=== PATIENT | male | born 1940 | race Caucasian/White ===

== ENCOUNTER → 2016-02-14 | Outpatient (CLI) | payer OTHER ==
[~2016-02-14] MED LIST: ASPI81TA21 PO; ATOR-26 PO; FISHOIL PO; METO25TA56 PO
[2016-02-14 10:14] LABS: HEMATOCRIT 38.3 % (42-52); MEAN CELL VOLUME 91.2 fL (80-100); MEAN CORPUSCULAR HEMOGLOBIN 31.4 pg (25-34); MEAN CORPUSCULAR HGB CONC 34.5 g/dl (32-36); MEAN PLATELET VOLUME 10.3 fL (7.4-10.4); PLATELET COUNT 160 K/uL (130-400); WHITE BLOOD COUNT 6.98 K/uL (4.8-10.8)
[2016-02-14 10:15] LABS: URINE APPEARANCE CLEAR (CLEAR); URINE BILIRUBIN NEG (NEG); URINE COLOR YELLOW; URINE EPITHELIAL CELL AUTO 0-5 /lpf (0-5); URINE NITRITE NEG (NEG); UROBILINOGEN NEG (NEG)
[2016-02-14 10:17] LABS: MANUAL MICROSCOPIC REQUIRED? NO; REVIEW REQ? NO
[2016-02-14 10:43] LABS: URINE PROTIEN/CREAT RATIO 1.7 (0-0.2); URINE TOTAL PROTEIN 136.2 mg/dl (0-11.9)
[2016-02-14 10:56] LABS: BLOOD UREA NITROGEN 45 mg/dl (7-18); BUN/CREATININE RATIO 19.5 (10-20); CARBON DIOXIDE 24 mmol/L (21-32); CHLORIDE 110 mmol/L (98-107); GLUCOSE 99 mg/dl (70-99); SODIUM 142 mmol/L (136-145)
[2016-02-14 11:00] LABS: PHOSPHORUS 2.8 mg/dl (2.5-4.9)
== END | disposition home or self-care (01) ==
LOC: C.LAB 09:26
PROVIDERS: ATTEND Internal Medicine Nephrology
DX: N18.3 Chronic kidney disease, stage 3 (moderate) (principal); I10 Essential (primary) hypertension; R80.9 Proteinuria, unspecified; E55.9 Vitamin D deficiency, unspecified; N40.0 Benign prostatic hyperplasia without lower urinary tract symptoms

== ENCOUNTER → 2016-03-22 | Outpatient (CLI) | payer OTHER ==
[2016-03-22 11:34] LABS: MANUAL MICROSCOPIC REQUIRED? NO; REVIEW REQ? NO; URINE APPEARANCE CLEAR (CLEAR); URINE BILIRUBIN NEG (NEG); URINE COLOR YELLOW; URINE NITRITE NEG (NEG); URINE PH 5.5 (4.5-7.5); UROBILINOGEN NEG (NEG)
[2016-03-22 11:45] LABS: URINE PROTIEN/CREAT RATIO 1.3 (0-0.2); URINE TOTAL PROTEIN 131.4 mg/dl (0-11.9)
[2016-03-22 11:48] LABS: BLOOD UREA NITROGEN 35 mg/dl (7-18); BUN/CREATININE RATIO 14.6 (10-20); CARBON DIOXIDE 25 mmol/L (21-32); CHLORIDE 109 mmol/L (98-107); GLUCOSE 111 mg/dl (70-99); PHOSPHORUS 3.3 mg/dl (2.5-4.9); POTASSIUM 4.8 mmol/L (3.5-5.1); SODIUM 143 mmol/L (136-145)
== END | disposition home or self-care (01) ==
LOC: C.LAB 10:10
PROVIDERS: ATTEND Internal Medicine Nephrology
DX: R31.29 Other microscopic hematuria (principal); I12.9 Hypertensive chronic kidney disease with stage 1 through stage 4 chronic kidney disease, or unspecified chronic kidney disease; N18.3 Chronic kidney disease, stage 3 (moderate); R80.9 Proteinuria, unspecified; E55.9 Vitamin D deficiency, unspecified

== ENCOUNTER → 2016-04-19 | Outpatient (CLI) | payer OTHER ==
--- NOTE | 2016-04-19 13:35 | DIAGNOSTIC IMAGING REPORT ---
LUMBAR SPINE MIN 4 VIEWS CLINICAL HISTORY: LEFT HIP PAIN COMPARISON STUDY: No previous studies for comparison. FINDINGS: No acute fractures or subluxations are visualized. There are no destructive lesions. There is facet joint arthropathy L4-5 and L5-S1 levels. IMPRESSION: 1. No fractures subluxations or destructive lesions are visualized 2. Facet joint arthropathy Electronically signed by: Nato Dupree M.D. 04/19/2016 1:34 PM Dictated Date/Time: 04/19/2016 1:33 PM
--- NOTE | 2016-04-19 13:36 | DIAGNOSTIC IMAGING REPORT ---
LEFT KNEE 4 VIEWS INCLUDING BILATERAL STANDING AP VIEWS CLINICAL HISTORY: LEFT KNEE PAIN COMPARISON: None. DISCUSSION: No fractures are visualized. There are no erosive or destructive changes. There are minor osteoarthritic changes. There are small dorsal patellar spurs. IMPRESSION: Mild degenerative change. No fractures are visualized. Electronically signed by: Nato Dupree M.D. 04/19/2016 1:35 PM Dictated Date/Time: 04/19/2016 1:34 PM
== END | disposition home or self-care (01) ==
LOC: C.RDSM 13:15
PROVIDERS: ATTEND Family Medicine
DX: M25.562 Pain in left knee (principal); M25.552 Pain in left hip; M12.9 Arthropathy, unspecified

== ENCOUNTER → 2016-05-02 | Outpatient (CLI) | payer OTHER ==
--- NOTE | 2016-05-02 18:22 | DIAGNOSTIC IMAGING REPORT ---
MRI OF THE RIGHT FOREFOOT WITHOUT IV CONTRAST CLINICAL HISTORY: Benign neoplasm of the skin. COMPARISON STUDY: No priors. TECHNIQUE: MRI of the right forefoot is performed utilizing various T1 and T2-weighted sequences in the axial, sagittal, and coronal planes. IV contrast was not administered for this examination. FINDINGS: There is no MRI evidence of fracture or osteonecrosis in the right forefoot. Minimal degenerative change is seen within the fifth metatarsal head. Normal marrow signal intensity is otherwise preserved of the visualized bony structures. There is nonspecific soft tissue thickening seen overlying the medial aspect of the first metatarsophalangeal joint. There is trace and loculated appearing subcutaneous fluid in this region. The largest locule of fluid measures up to 9 mm. Fluid does not appear to extend to the joint space. This region is non-masslike. The first metatarsophalangeal joint sesamoids are normal as imaged. The medial sesamoid is bipartite. The regional musculature is normal in signal intensity. IMPRESSION: 1. No acute bony abnormality is seen in the right forefoot. 2. There is nonspecific soft tissue thickening along the medial aspect of the first metatarsophalangeal joint with loculated subcutaneous fluid at this site. This is nonmasslike, and is of indeterminant etiology and significance. This could be related to chronic inflammatory process such as gout. A true mass lesion is considered less likely. Clinical correlation will be essential. Dictated: 05/02/2016 6:08 PM Transcribed: 05/02/2016 6:22 PM Devon Electronically signed by: Gonzalez Bolanos M.D. 05/03/2016 12:52 PM Dictated Date/Time: 05/02/2016 6:08 PM
== END | disposition home or self-care (01) ==
LOC: C.MRI 15:13
PROVIDERS: ATTEND Podiatrist
DX: D23.9 Other benign neoplasm of skin, unspecified (principal)

== ENCOUNTER → 2016-07-25 | Outpatient (CLI) | payer OTHER ==
[2016-07-25 10:12] LABS: MANUAL MICROSCOPIC REQUIRED? NO; REVIEW REQ? NO; URINE APPEARANCE CLEAR (CLEAR); URINE BILIRUBIN NEG (NEG); URINE COLOR YELLOW; URINE NITRITE NEG (NEG); URINE SPECIFIC GRAVITY 1.017 (1.000-1.030); UROBILINOGEN NEG (NEG)
[2016-07-25 10:33] LABS: HEMATOCRIT 38.4 % (42-52); MEAN CELL VOLUME 93.9 fL (80-100); MEAN CORPUSCULAR HEMOGLOBIN 31.5 pg (25-34); MEAN CORPUSCULAR HGB CONC 33.6 g/dl (32-36); MEAN PLATELET VOLUME 10.7 fL (7.4-10.4); PLATELET COUNT 145 K/uL (130-400); RED BLOOD COUNT 4.09 M/uL (4.7-6.1); WHITE BLOOD COUNT 6.17 K/uL (4.8-10.8)
[2016-07-25 10:42] LABS: URINE PROTIEN/CREAT RATIO 2.2 (0-0.2); URINE TOTAL PROTEIN 170.7 mg/dl (0-11.9)
[2016-07-25 10:43] LABS: BLOOD UREA NITROGEN 37 mg/dl (7-18); BUN/CREATININE RATIO 17.5 (10-20); CALCIUM 8.6 mg/dl (8.5-10.1); CARBON DIOXIDE 25 mmol/L (21-32); CHLORIDE 109 mmol/L (98-107); GLUCOSE 117 mg/dl (70-99); PHOSPHORUS 2.9 mg/dl (2.5-4.9); POTASSIUM 4.1 mmol/L (3.5-5.1); SODIUM 142 mmol/L (136-145)
[2016-07-26 16:38] LABS: ALBUMIN 3.7 G/DL (3.8-4.8); FREE KAPPA 61.3 MG/L (3.3-19.4); FREE KAPPA/LAMBDA RATIO 1.86 (0.26-1.65); GAMMA GLOBULIN 1.1 G/DL (0.8-1.7); TOTAL PROTEIN 6.4 G/DL (6.2-8.3)
== END | disposition home or self-care (01) ==
LOC: C.LAB 09:15
PROVIDERS: ATTEND Internal Medicine Nephrology
DX: R31.29 Other microscopic hematuria (principal); I12.9 Hypertensive chronic kidney disease with stage 1 through stage 4 chronic kidney disease, or unspecified chronic kidney disease; N18.3 Chronic kidney disease, stage 3 (moderate); R80.9 Proteinuria, unspecified; E55.9 Vitamin D deficiency, unspecified

== ENCOUNTER → 2017-01-01 | Outpatient (CLI) | payer OTHER ==
[2017-01-01 16:19] LABS: HEMATOCRIT 38.5 % (42-52); MEAN CELL VOLUME 96.5 fL (80-100); MEAN CORPUSCULAR HEMOGLOBIN 31.6 pg (25-34); MEAN CORPUSCULAR HGB CONC 32.7 g/dl (32-36); MEAN PLATELET VOLUME 10.9 fL (7.4-10.4); PLATELET COUNT 167 K/uL (130-400); RED BLOOD COUNT 3.99 M/uL (4.7-6.1); WHITE BLOOD COUNT 7.64 K/uL (4.8-10.8)
[2017-01-01 16:27] LABS: ALT/SGPT 34 U/L (12-78); BLOOD UREA NITROGEN 46 mg/dl (7-18); BUN/CREATININE RATIO 18.5 (10-20); CALCIUM 9.1 mg/dl (8.5-10.1); CARBON DIOXIDE 22 mmol/L (21-32); CHLORIDE 108 mmol/L (98-107); GLUCOSE 114 mg/dl (70-99); POTASSIUM 4.9 mmol/L (3.5-5.1); SODIUM 139 mmol/L (136-145)
[2017-01-01 16:38] LABS: ALB/GLOB RATIO 0.9 (0.9-2); ALKALINE PHOSPHATASE 66 U/L (45-117); AST/SGOT 20 U/L (15-37)
== END | disposition home or self-care (01) ==
LOC: C.LAB1850 13:55
PROVIDERS: ATTEND Family Medicine
DX: R53.83 Other fatigue (principal); M10.00 Idiopathic gout, unspecified site

== ENCOUNTER → 2017-01-13 | Outpatient (CLI) | payer OTHER ==
[2017-01-13 16:58] LABS: HEMATOCRIT 36.5 % (42-52); MEAN CELL VOLUME 94.3 fL (80-100); MEAN CORPUSCULAR HEMOGLOBIN 31.5 pg (25-34); MEAN CORPUSCULAR HGB CONC 33.4 g/dl (32-36); MEAN PLATELET VOLUME 11.1 fL (7.4-10.4); PLATELET COUNT 170 K/uL (130-400); RED BLOOD COUNT 3.87 M/uL (4.7-6.1); WHITE BLOOD COUNT 8.62 K/uL (4.8-10.8)
[2017-01-13 17:06] LABS: URINE APPEARANCE CLEAR (CLEAR); URINE BILIRUBIN NEG (NEG); URINE COLOR YELLOW; URINE EPITHELIAL CELL AUTO 0-5 /lpf (0-5); URINE NITRITE NEG (NEG); UROBILINOGEN NEG (NEG)
[2017-01-13 17:07] LABS: BLOOD UREA NITROGEN 46 mg/dl (7-18); BUN/CREATININE RATIO 16.9 (10-20); CALCIUM 8.9 mg/dl (8.5-10.1); CARBON DIOXIDE 21 mmol/L (21-32); CHLORIDE 109 mmol/L (98-107); GLUCOSE 117 mg/dl (70-99); PHOSPHORUS 3.2 mg/dl (2.5-4.9); POTASSIUM 4.1 mmol/L (3.5-5.1); SODIUM 139 mmol/L (136-145)
[2017-01-13 17:12] LABS: MANUAL MICROSCOPIC REQUIRED? NO; REVIEW REQ? NO
[2017-01-13 17:30] LABS: URINE PROTIEN/CREAT RATIO 1.6 (0-0.2); URINE TOTAL PROTEIN 233.1 mg/dl (0-11.9)
== END | disposition home or self-care (01) ==
LOC: C.LAB1850 15:05
PROVIDERS: ATTEND Internal Medicine Nephrology
DX: R31.29 Other microscopic hematuria (principal); N18.3 Chronic kidney disease, stage 3 (moderate); I12.9 Hypertensive chronic kidney disease with stage 1 through stage 4 chronic kidney disease, or unspecified chronic kidney disease; R80.9 Proteinuria, unspecified; E55.9 Vitamin D deficiency, unspecified

== ENCOUNTER → 2017-01-21 | Outpatient (CLI) | payer OTHER ==
--- NOTE | 2017-01-21 12:30 | DIAGNOSTIC IMAGING REPORT ---
EXAMINATION: RENAL ULTRASOUND CLINICAL HISTORY: R31.29 Microscopic [id number] Chronic kidney disease, stage COMPARISON STUDY: 03/31/2013 FINDINGS: The right kidney measures 11.7 cm. The left kidney measures 13.4 cm. There is no evidence of hydronephrosis. There is bilateral increased cortical echogenicity, consistent with medical renal disease. There are multiple bilateral renal cysts the 2 largest of which measure 26 mm on the right, and 25 mm on the left. There is an equivocal 4 mm lower pole right renal calculus The left ureteral jet was not visualized. No bladder masses were evident. IMPRESSION : 1. No evidence of hydronephrosis 2. Multiple bilateral renal cysts 3. Increased cortical echogenicity consistent with medical renal disease 4. Equivocal 4 mm lower pole right renal calculus Electronically signed by: Nato Dupree M.D. 01/21/2017 12:29 PM Dictated Date/Time: 01/21/2017 12:27 PM
== END | disposition home or self-care (01) ==
LOC: C.ULTR 10:48
PROVIDERS: ATTEND Internal Medicine Nephrology
DX: E55.9 Vitamin D deficiency, unspecified (principal); I12.9 Hypertensive chronic kidney disease with stage 1 through stage 4 chronic kidney disease, or unspecified chronic kidney disease; N18.3 Chronic kidney disease, stage 3 (moderate); R31.29 Other microscopic hematuria; R80.9 Proteinuria, unspecified; N28.1 Cyst of kidney, acquired; N20.0 Calculus of kidney

== ENCOUNTER → 2017-02-11 | Outpatient (CLI) | payer OTHER ==
[~2017-02-11] MED LIST changes: +ALLO100T PO; +ASPI-319 PO; -ASPI81TA21 PO; +CHOL100010 PO; +FRS/40 PO; +NRV/5 PO; +OMEG10002 PO; +OXYC-57 PO
[2017-02-11 10:06] LABS: HEMATOCRIT 34.3 % (42-52); HEMOGLOBIN 11.8 g/dL (14.0-18.0); MEAN CORPUSCULAR HEMOGLOBIN 32.3 pg (25-34); MEAN CORPUSCULAR HGB CONC 34.4 g/dl (32-36); MEAN PLATELET VOLUME 10.9 fL (7.4-10.4); PLATELET COUNT 153 K/uL (130-400); RED CELL DISTRIBUTION WIDTH CV 13.4 % (11.5-14.5); RED CELL DISTRIBUTION WIDTH SD 46.1 fL (36.4-46.3); WHITE BLOOD COUNT 7.53 K/uL (4.8-10.8)
[2017-02-11 10:37] LABS: ALBUMIN 3.2 gm/dl (3.4-5.0); ALT/SGPT 30 U/L (12-78); AST/SGOT 24 U/L (15-37); BLOOD UREA NITROGEN 46 mg/dl (7-18); CALCIUM 8.9 mg/dl (8.5-10.1); CARBON DIOXIDE 22 mmol/L (21-32); CREATININE 2.99 mg/dl (0.60-1.40); GLUCOSE 86 mg/dl (70-99); POTASSIUM 4.5 mmol/L (3.5-5.1); SODIUM 137 mmol/L (136-145)
[2017-02-11 10:40] LABS: ALKALINE PHOSPHATASE 64 U/L (45-117)
== END | disposition home or self-care (01) ==
LOC: C.LAB 09:03
PROVIDERS: ATTEND Internal Medicine Nephrology
DX: R31.29 Other microscopic hematuria (principal); N18.3 Chronic kidney disease, stage 3 (moderate); R80.9 Proteinuria, unspecified; I10 Essential (primary) hypertension; E55.9 Vitamin D deficiency, unspecified

== ENCOUNTER → 2017-03-12 | Outpatient (CLI) | payer OTHER ==
[~2017-03-12] MED LIST changes: -ALLO100T PO; -ASPI-319 PO; +ASPI81TA21 PO; -CHOL100010 PO; -FRS/40 PO; -NRV/5 PO; -OMEG10002 PO; -OXYC-57 PO
[2017-03-12 17:44] LABS: HEMATOCRIT 34.2 % (42-52); HEMOGLOBIN 11.7 g/dL (14.0-18.0); MEAN CELL VOLUME 92.7 fL (80-100); MEAN CORPUSCULAR HEMOGLOBIN 31.7 pg (25-34); MEAN CORPUSCULAR HGB CONC 34.2 g/dl (32-36); MEAN PLATELET VOLUME 10.4 fL (7.4-10.4); PLATELET COUNT 164 K/uL (130-400); RED CELL DISTRIBUTION WIDTH CV 13.3 % (11.5-14.5); RED CELL DISTRIBUTION WIDTH SD 44.6 fL (36.4-46.3); WHITE BLOOD COUNT 7.61 K/uL (4.8-10.8)
[2017-03-12 18:09] LABS: BLOOD UREA NITROGEN 64 mg/dl (7-18); CALCIUM 8.8 mg/dl (8.5-10.1); CARBON DIOXIDE 22 mmol/L (21-32); CREATININE 2.91 mg/dl (0.60-1.40); GLUCOSE 113 mg/dl (70-99); POTASSIUM 4.8 mmol/L (3.5-5.1); SODIUM 133 mmol/L (136-145)
== END | disposition home or self-care (01) ==
LOC: C.LAB 16:41
PROVIDERS: ATTEND Urology
DX: D64.9 Anemia, unspecified (principal); I10 Essential (primary) hypertension; N18.9 Chronic kidney disease, unspecified; N40.1 Benign prostatic hyperplasia with lower urinary tract symptoms

== ENCOUNTER → 2017-04-16 | Day surgery (SDC) | payer OTHER ==
[2017-04-09 08:10] VITALS: Ht 180.3 cm; Wt 82.5 kg
--- NOTE | 2017-04-09 08:47 | PAT Medication Instructions ---
Service Date Apr 09, 2017. Current Home Medication List Allopurinol (Zyloprim), 100 MG PO QAM Amlodipine Besylate (Amlodipine Besylate), 1 TAB PO QAM Aspirin Enteric Coated (Ecotrin Or Generic), 81 MG PO QAM Atorvastatin (Lipitor), 80 MG PO QPM Cholecalciferol (Vitamin D), 1 TAB PO QPM Furosemide (Lasix), 20 MG PO QAM Manchester-3 Fatty Acids (Fish Oil), 1 CAP PO QPM Medication Instructions For Your Scheduled Surgery - Hold the following medications 2 weeks prior to surgery: Manchester-3 Fatty Acids (Fish Oil), 1 CAP PO QPM - Hold the following medications the morning of surgery: Furosemide (Lasix), 20 MG PO QAM - Take the following medications the morning of surgery with a sip of water: Allopurinol (Zyloprim), 100 MG PO QAM Amlodipine Besylate (Amlodipine Besylate), 1 TAB PO QAM Aspirin Enteric Coated (Ecotrin Or Generic), 81 MG PO QAM (unless otherwise instructed by your surgeon or agricultural engineer) - Take the following medications as scheduled the night before surgery: Atorvastatin (Lipitor), 80 MG PO QPM Cholecalciferol (Vitamin D), 1 TAB PO QPM If you have any questions please call us at [phone] or [phone] or [phone]
--- NOTE | 2017-04-09 09:29 | DIAGNOSTIC IMAGING REPORT ---
CHEST 2 VIEWS ROUTINE CLINICAL HISTORY: PAT preoperative evaluation COMPARISON STUDY: No previous studies for comparison. FINDINGS: The bones soft tissues and hemidiaphragms are normal. The cardiomediastinal silhouette is normal. The lungs are clear. The pulmonary vasculature is normal. IMPRESSION: Negative chest. The above report was generated using voice recognition software. It may contain grammatical, syntax or spelling errors. Electronically signed by: Daniel Ortiz M.D. 04/09/2017 9:27 AM Dictated Date/Time: 04/09/2017 9:27 AM
[2017-04-09 10:00] LABS: BASO % 0.4 %; BASO ABS # 0.03 K/uL (0-0.2); EOS % 5.1 %; EOS ABS # 0.34 K/uL (0-0.5); IG# 0.01 K/uL (0.00-0.02); LYMPH % 31.4 %; LYMPH ABS # 2.11 K/uL (1.2-3.4); MEAN CELL VOLUME 94.3 fL (80-100); MEAN CORPUSCULAR HEMOGLOBIN 31.4 pg (25-34); MEAN CORPUSCULAR HGB CONC 33.3 g/dl (32-36); MEAN PLATELET VOLUME 10.7 fL (7.4-10.4); MONO % 8.6 %; MONO ABS # 0.58 K/uL (0.11-0.59); NEUT % 54.4 %; NEUT ABS # 3.66 K/uL (1.4-6.5); PLATELET COUNT 144 K/uL (130-400); RED CELL DISTRIBUTION WIDTH CV 13.4 % (11.5-14.5); RED CELL DISTRIBUTION WIDTH SD 46.3 fL (36.4-46.3); WHITE BLOOD COUNT 6.73 K/uL (4.8-10.8)
[2017-04-09 10:08] LABS: PTT PATIENT 27.1 SECONDS (21.0-31.0)
[2017-04-09 10:12] LABS: CALCIUM 9.1 mg/dl (8.5-10.1); CREATININE 2.8 mg/dl (0.60-1.40); POTASSIUM 4.6 mmol/L (3.5-5.1)
[~2017-04-16] VITALS: Ht 180.3 cm; Wt 82.5 kg
[~2017-04-16] MED LIST changes: +ALLO100T PO; +ATROPINE SULFATE 0.1 MG/ML 5ML SYR IV PRN; +BUPIVACAINE/EPINEPHRINE 0.5% MPF 1:200,000 30 ML VIAL ONE; +CEFAZOLIN 2000MG IV PUSH 15 ML IV SCH; +CHOL100010 PO; +EpHEDrine SULFATE INJ 50 MG/ML AMP IV PRN; +FENTANYL CITRATE INJ 50 MCG/1 ML 2 ML VIAL ONE; -FISHOIL PO; +FRS/40 PO; +GELATIN SPONGE 12-7MM ONE; +HEPARIN SOD (PORCINE) 1000 UNIT/ML 10 ML VIAL ONE; +LIDOCAINE HCL 1% 20 ML VIAL ONE; +LIDOCAINE HCL 2% 2 ML VIAL (20MG/ML) ONE; -METO25TA56 PO; +MIDAZOLAM HCL 1 MG/ML 2ML VIAL ONE; +NRV/5 PO; +OMEG10002 PO; +OXYC-57 PO; +PROPOFOL IV EMULSION 10 MG/ML 20 ML VIAL IV ONE; +SODIUM CHLORIDE 0.9% 1000ML 1,000 ML IV SCH; +SURGICEL ABSORB HEMOSTAT 2IN X 14IN TOP ONE; +THROMBIN FOR SOLN 20000 UNIT KIT ONE
[2017-04-16 07:30] VITALS: BP 141/66; PULSE 55; TEMP 36.7; O2SAT 97
[2017-04-16 07:54] LABS: CALCIUM 8.7 mg/dl (8.5-10.1); CREATININE 2.62 mg/dl (0.60-1.40); POTASSIUM 4.4 mmol/L (3.5-5.1)
--- NOTE | 2017-04-16 08:42 | History and Physical ---
History & Physical Date of Service Apr 16, 2017. History & Physical an2017 Name: IAIN REYNA [facility] Number: [id number] : 1940 Date of Service: 03/11/[address] [facility], [address] [place] [address] Hunt: I had the pleasure of seeing Mr. Reyna in the office for a consultation today regarding creation of arteriovenous fistula for hemodialysis. Patient says he is not yet on hemodialysis and has no definite plans to begin dialysis at any definite date. He states that he has had longstanding renal disease that has been slowly declining and was advised to consider having a fistula created so that when he does need it--it is available for use. He denies any complaints at this time including headaches, fevers, chills, dizziness, chest pain, shortness of breath, abdominal pain, nausea, vomiting, diarrhea, constipation, dysuria, hematuria, rest pain, claudication, nonhealing wounds or ulcers or other complaints. He did undergo a vein mapping ultrasound prior to today's appointment, which demonstrates usable cephalic veins in his bilateral wrists. ALLERGIES: SULFA. HOME MEDICATIONS: Reconciled on the chart and include the following: Allopurinol, amlodipine, aspirin, atorvastatin, fish oil and naproxen. PAST MEDICAL HISTORY: Positive for gout, hypertension, chronic kidney disease, hyperlipidemia, osteoarthritis. PAST SURGICAL HISTORY: Positive for a cardiac catheterization approximately 5 years ago where he underwent coronary artery stenting. He also had a tonsillectomy in 1949. FAMILY HISTORY: Positive for cancer in his father and heart disease in unknown individuals. SOCIAL HISTORY: Positive for a past history of tobacco use. The patient quit smoking in 1968. REVIEW OF SYSTEMS: Negative for fatigue, fevers, sweats, weight loss, exercise intolerance, abnormal moles or rashes, vision changes or photophobia, ear pain, sinus problems or sore throat, cough, shortness of breath, hemoptysis or wheezing, chest pain, palpitations, edema or syncope, abdominal pain, nausea, vomiting, diarrhea, constipation, muscle weakness, headaches, dizziness, numbness or seizures. PHYSICAL EXAMINATION: Vital signs today were as follows: A blood pressure of 130/70 in the right arm, 134/74 in the left, heart rate is 60, oxygen 97% on room air. The patient is 180.34 cm tall and weighs 84 kilograms. Constitutional: In general, patient is a healthy for age appearing, well- nourished, well-developed elderly male in no acute distress. He ambulates without assistance and is active, alert and oriented x4 with normal recent and remote memory. Her head is normocephalic, atraumatic. Eyes are EOMI. ENMT demonstrates no hearing loss, rhinorrhea, or pharyngeal erythema. Neck is supple, nontender with a midline trachea without masses or crepitus. Lungs demonstrates no dyspnea; they are decreased somewhat but clear bilaterally. Cardiovascular exam demonstrates nondisplaced apical impulse with a regular rate and rhythm. He does have a 2/6 systolic ejection murmur noted. His peripheral pulses are full and equal in all extremities unless otherwise noted, specifically they are normal in his carotid, brachial, radial, femoral pulses. His lower extremity distal pulses are +2. He has brisk capillary refill, and no signs of distal ischemia. Abdomen is soft, nontender with normoactive bowel sounds in all 4 quadrants without guarding or rebound. There is no flank or CVA tenderness. Musculoskeletal exam demonstrates normal tone and strength for age. Bilateral upper extremities demonstrate no cyanosis, edema, clubbing, varicosities or ulcers. Bilateral lower extremities demonstrate no cyanosis, edema, clubbing, varicosities or ulcers. Neurological: The patient has grossly intact cranial nerves and grossly intact sensation. ASSESSMENT AND PLAN: End-stage renal disease, not yet on hemodialysis. PLAN: At this time after discussion with Dr. Ren who saw the patient today as well and reviewed the patient's ultrasound is to recommend that the patient consider undergoing a left wrist arteriovenous fistula as he is right-handed. The procedure as well as the risks, benefits and alternatives were discussed at length with the patient and his . The patient expressed understanding and agreement to proceed. This will occur in the next few weeks at the patient's convenience as there does not appear to be any significant urgency. The patient requested to undergo this procedure after his returns from a trip to [place] that had already been planned, and he was advised that this would be able to be worked out. He was advised to call here with any other questions if they should occur prior to his procedure. Thank you for allowing us to participate in the care of your patient. #[id number] Signature Line Electronic Signature on File CC: Shahram Solorio MD [address] [address] * CC: Gautam Malhotra MD [address] [place] [address] [address] [facility] [address] * CC: Dale Hunt MD [facility] [address] [address] * Electronically Reviewed/Signed by: Cora Blake PA-C Author Signature Dt/Tm:03/13/2017 09:56 AM [facility] [address] [facility] [address] [place] [address] Electronically Reviewed/Signed by: Jefe Issa Signature Dt/Tm : 03/13/2017 10:17 AM Service Specialist [facility] [address] [facility] [address] [place] [address] LM /AIRAM Result Type: .Consult Date of Service: March 11, 2017 00:00 Authorization Status: Final Subject: Consult Ltr Author or Import Date: DARLEEN Blake Lynn on March 11, 2017 16:04 Verified By: MD Mikal, Donis Gomez on March 13, 2017 10:17 Encounter info: [id number], [facility], Clinic, 03/11/2017 - 03/12/2017 Contributor system: [id number]
--- NOTE | 2017-04-16 08:43 | Progress Note ---
Progress Note Date of Service Apr 16, 2017. Progress Note Patient for left wrist av fistula creation. I have discussed the risks options and benefits of the procedure with the patient. The patient understands the risks options and benefits and agrees to the procedure. I have examined the patient, reviewed the History & Physical and in the interval since the performance of the History & Physical I have noted the following changes of clinical significance: No changes noted
--- NOTE | 2017-04-16 10:23 | [facility] Post Operative Brief Note ---
Immediate Operative Summary Operative Date Apr 16, 2017. Pre-Operative Diagnosis End-stage renal disease Post-Operative Diagnosis End-stage renal disease Procedure(s) Performed Left Wrist Arteriovenous Fistula Creation Surgeon Dr. Donis Ren Materials Research Engineer Surgeon(s) Dr. Rosangela Zarco(Fellow) & Cora Blake Estimated Blood Loss 5 ml Findings Consistent with Post-Op Diagnosis Specimens None per Surgeon Drains None Anesthesia Type MAC Complication(s) none Disposition Accompanied Pt To Recover: no Disposition: Recovery Room / PACU
--- NOTE | 2017-04-16 10:28 | Discharge Instructions ---
Discharge Instructions Date of Service Apr 16, 2017. Visit Reason for Visit: End Stage Renal Disease Discharge Discharge Diagnosis / Problem: End stage renal disease Discharge Goals Goal(s): Therapeutic intervention Activity Recommendations Activity Limitations: per Instructions/Follow-up section Anesthesia . Post Anesthesia Instructions: If you have had General Anesthesia or IV Sedation: * Do not drive today. * Resume driving when surgeon permits. * Do not make important decisions or sign legal documents today. * Call surgeon for: 1. Temperature elevations greater than 101 degrees F. 2. Uncontrollable pain. 3. Excessive bleeding. 4. Persistent nausea and vomiting. 5. Medication intolerance (nausea, vomiting or rash). * For nausea and vomiting use only clear liquids such as: tea, soda, bouillon until nausea subsides, then gradually increase diet as tolerated. * If you have any concerns or questions, call your surgeon's office. If physician is unavailable and it is an emergency, call 911 or go to the nearest emergency room. . Instructions / Follow-Up Instructions / Follow-Up Call [phone] to schedule a follow up appointment if one not already scheduled. ACTIVITY RECOMMENDATIONS: See Above SPECIAL CARE INSTRUCTIONS: Call your doctor if: * Temperature above 101 degrees * Pain not relieved by pain medicine ordered * There is increased drainage or redness from any incision * You have any unanswered questions or concerns. Diet Recommendations Recommended Home Diet: resume previous diet Procedures Procedures Performed: Left Wrist Arteriovenous Fistula Creation Pending Studies Studies pending at discharge: no Medical Emergencies . Who to Call and When: Medical Emergencies: If at any time you feel your situation is an emergency, please call 911 immediately. . Non-Emergent Contact Non-Emergency issues call your: Surgeon . . "Provider Documentation" section prepared by Donis Ren. .
--- NOTE | 2017-04-16 10:53 | OPERATIVE REPORT ---
DATE OF OPERATION: 04/16/2017 PREOPERATIVE DIAGNOSIS: End-stage renal disease. POSTOPERATIVE DIAGNOSIS: Same. PROCEDURE: Left upper extremity radiocephalic fistula creation. SURGEON: Donis Ren MD. RECEIVING TELLER: Rosangela Sol MD and Cora Blake PA-C. ANESTHESIA: Local plus conscious sedation. ESTIMATED BLOOD LOSS: 5. FLUIDS: 400 mL. URINE OUTPUT: Not recorded. COMPLICATIONS: None apparent. INDICATIONS: Mr. Aguilar is a 76-year-old gentleman with end-stage renal disease in need of permanent hemodialysis access. He was advised of the risks and benefits of undergoing a fistula placement and agreed to undergo the said procedure. DESCRIPTION OF THE PROCEDURE: The patient was brought to the operative suite. He was prepped and draped in usual fashion. Timeout occurred. Local was instilled in between his cephalic vein and his renal artery and a longitudinal incision was made. First the cephalic vein was identified and dissected out circumferentially. Next, the artery was identified and dissected out. It was found to be soft and clampable. The patient was then instilled with 3000 units of intravenous heparin. Clamps were applied to the radial artery distally and proximally. An arteriotomy was made with an 11 blade and this was extended with Harris scissors to be approximately 6 mm in distance. Prior to the arteriotomy, the cephalic vein had been transected distally and the distal end oversewn with 2-0 silk. It was dilated with heparinized saline and seemed to dilate well. The anastomosis was then created using 6-0 Prolene in a continuous fashion. Prior to the last stitches being placed, the artery was flushed forward and backwards moving air bubbles. The anastomosis was completed and there appeared to be a good thrill in the fistula. There was a large branch proximally that was ligated. Upon inspection of the arm, there was another large branch in the forearm. Local was instilled over this branch and an incision was made and the vein branch was ligated. The arterial anastomosis was reevaluated for hemostasis. This was obtained. The incisions were closed with 3-0 and 4-0 Vicryl sutures and Dermabond. The patient tolerated the procedure well and was transferred to PACU in stable condition. Dr. Donis Ren was present and scrubbed for the entirety of this case. I attest to the content of the Intraoperative Record and any orders documented therein. Any exception s are noted below.
--- NOTE | 2017-04-16 11:03 | Anesthesiology Progress Note ---
Anesthesia Post Op Note Date & Time Apr 16, 2017 at 11:02 Vital Signs Pain Intensity: 0 Vital Signs Past 12 Hours Date Time Temp Pulse Resp B/P (MAP) Pulse Ox O2 Delivery O2 Flow Rate FiO2 04/16/17 11:00 36.0 47 15 106/63 95 Room Air 04/16/17 10:50 48 15 104/60 94 Room Air 04/16/17 10:41 36.0 48 16 100/66 99 Oxymask 10 04/16/17 07:30 36.7 55 18 141/66 (91) 97 Room Air Notes Mental Status: alert / awake / arousable, participated in evaluation Pt Amnestic to Procedure: Yes Nausea / Vomiting: adequately controlled Pain: adequately controlled Airway Patency, RR, SpO2: stable & adequate BP & HR: stable & adequate Hydration State: stable & adequate Anesthetic Complications: no major complications apparent
[2017-04-16 11:04] VITALS: BP 117/63; PULSE 46; TEMP 36.3; O2SAT 97
[2017-04-16 11:35] VITALS: BP 117/61; PULSE 51; TEMP 36.6; O2SAT 98
== END | disposition home or self-care (01) ==
LOC: C.ACU 06:59
PROVIDERS: ATTEND Surgery Vascular Surgery
DX: N18.6 End stage renal disease (principal); I12.0 Hypertensive chronic kidney disease with stage 5 chronic kidney disease or end stage renal disease; M10.9 Gout, unspecified; E78.5 Hyperlipidemia, unspecified; M19.90 Unspecified osteoarthritis, unspecified site; G47.33 Obstructive sleep apnea (adult) (pediatric); K21.9 Gastro-esophageal reflux disease without esophagitis; Z88.2 Allergy status to sulfonamides; I25.10 Atherosclerotic heart disease of native coronary artery without angina pectoris; Z87.891 Personal history of nicotine dependence; Z79.82 Long term (current) use of aspirin; Z90.89 Acquired absence of other organs; Z82.49 Family history of ischemic heart disease and other diseases of the circulatory system; Z95.5 Presence of coronary angioplasty implant and graft

== ENCOUNTER → 2017-05-07 | Outpatient (CLI) | payer OTHER ==
[~2017-05-07] MED LIST changes: -ATROPINE SULFATE 0.1 MG/ML 5ML SYR IV PRN; -BUPIVACAINE/EPINEPHRINE 0.5% MPF 1:200,000 30 ML VIAL ONE; -CEFAZOLIN 2000MG IV PUSH 15 ML IV SCH; -EpHEDrine SULFATE INJ 50 MG/ML AMP IV PRN; -FENTANYL CITRATE INJ 50 MCG/1 ML 2 ML VIAL ONE; -GELATIN SPONGE 12-7MM ONE; -HEPARIN SOD (PORCINE) 1000 UNIT/ML 10 ML VIAL ONE; -LIDOCAINE HCL 1% 20 ML VIAL ONE; -LIDOCAINE HCL 2% 2 ML VIAL (20MG/ML) ONE; -MIDAZOLAM HCL 1 MG/ML 2ML VIAL ONE; -PROPOFOL IV EMULSION 10 MG/ML 20 ML VIAL IV ONE; -SODIUM CHLORIDE 0.9% 1000ML 1,000 ML IV SCH; -SURGICEL ABSORB HEMOSTAT 2IN X 14IN TOP ONE; -THROMBIN FOR SOLN 20000 UNIT KIT ONE
[2017-05-07 09:40] LABS: HEMATOCRIT 33.9 % (42-52); MEAN CELL VOLUME 95.2 fL (80-100); MEAN CORPUSCULAR HEMOGLOBIN 30.9 pg (25-34); MEAN CORPUSCULAR HGB CONC 32.4 g/dl (32-36); MEAN PLATELET VOLUME 10.5 fL (7.4-10.4); PLATELET COUNT 153 K/uL (130-400); RED CELL DISTRIBUTION WIDTH CV 12.9 % (11.5-14.5); RED CELL DISTRIBUTION WIDTH SD 45.1 fL (36.4-46.3); WHITE BLOOD COUNT 5.99 K/uL (4.8-10.8)
[2017-05-07 10:02] LABS: ALBUMIN 3.2 gm/dl (3.4-5.0); BLOOD UREA NITROGEN 50 mg/dl (7-18); CALCIUM 8.8 mg/dl (8.5-10.1); CARBON DIOXIDE 24 mmol/L (21-32); GLUCOSE 97 mg/dl (70-99); POTASSIUM 4.8 mmol/L (3.5-5.1); SODIUM 139 mmol/L (136-145)
== END | disposition home or self-care (01) ==
LOC: C.LAB 08:05
PROVIDERS: ATTEND Internal Medicine Nephrology
DX: N18.3 Chronic kidney disease, stage 3 (moderate) (principal); I12.9 Hypertensive chronic kidney disease with stage 1 through stage 4 chronic kidney disease, or unspecified chronic kidney disease; R80.9 Proteinuria, unspecified; E55.9 Vitamin D deficiency, unspecified

== ENCOUNTER → 2017-09-03 | Outpatient (CLI) | payer OTHER ==
[~2017-09-03] MED LIST changes: +ASPI-319 PO; -ASPI81TA21 PO
[2017-09-03 13:23] LABS: HEMATOCRIT 33.1 % (42-52); HEMOGLOBIN 11.1 g/dL (14.0-18.0); MEAN CELL VOLUME 94.6 fL (80-100); MEAN CORPUSCULAR HEMOGLOBIN 31.7 pg (25-34); MEAN CORPUSCULAR HGB CONC 33.5 g/dl (32-36); PLATELET COUNT 138 K/uL (130-400); RED CELL DISTRIBUTION WIDTH SD 44.9 fL (36.4-46.3); WHITE BLOOD COUNT 5.84 K/uL (4.8-10.8)
[2017-09-03 14:23] LABS: ALBUMIN 3.6 gm/dl (3.4-5.0); BLOOD UREA NITROGEN 62 mg/dl (7-18); CALCIUM 8.7 mg/dl (8.5-10.1); CARBON DIOXIDE 23 mmol/L (21-32); CREATININE 2.91 mg/dl (0.60-1.40); GLUCOSE 88 mg/dl (70-99); PHOSPHORUS 3.3 mg/dl (2.5-4.9); SODIUM 137 mmol/L (136-145)
== END | disposition home or self-care (01) ==
LOC: C.LAB 11:51
PROVIDERS: ATTEND Internal Medicine Nephrology
DX: E55.9 Vitamin D deficiency, unspecified (principal)

== ENCOUNTER 2019-12-06 09:15 | Inpatient (IN) ==
--- NOTE | 2019-12-06 10:24 | Emergency Department Note ---
History of Present Illness General Chief complaint: Urinary Symptoms Stated complaint: BLOOD IN URINE Time Seen by Provider: 12/06/19 09:45 Source: patient Mode of arrival: ambulatory Limitations: no limitations History of Present Illness This patient comes in complaining of hematuria and generalized tiredness and malaise. He said this started 2 weeks ago when he had gross hematuria. He said that is actually less than it was. He talked to his ep specialist Dr. Monzon who ordered some labs as the creatinine had bumped up to 3.83. He has had no fever or chills. No dysuria. No abdominal or back pain. He has had a rash on his back that does not itch. It iss diffuse. No known exposure to douglas. No extra swelling in his legs. No numbness or weakness. Home Medications Home Medications Medication Instructions Recorded Confirmed Type aspirin 81 mg PO QAM 05/06/18 12/06/19 History melatonin 10 mg capsule 10 mg PO HS PRN 11/02/18 12/06/19 History allopurinol 100 mg tablet 100 mg PO QAM #90 tab 01/18/19 12/06/19 Rx amlodipine 5 mg tablet 5 mg PO QAM #90 tab 04/23/19 12/06/19 Rx cholecalciferol (vitamin D3) 50 50 mcg PO DAILY 07/02/19 12/06/19 History mcg (2,000 unit) tablet tadalafil 5 mg tablet 5 mg PO DAILY PRN #20 tab 08/11/19 12/06/19 Rx atorvastatin 80 mg tablet 80 mg PO HS #90 tab 09/06/19 12/06/19 Rx furosemide 40 mg tablet 20 mg PO DAILY PRN #30 tab 11/09/19 12/06/19 Rx Allergies Allergy/AdvReac Type Severity Reaction Status Date / Time Sulfa (Sulfonamide Allergy Unknown "DON'T Verified 12/06/19 10:36 Antibiotics) REMEMBER, IT WAS SO LONG AGO" Past Med/Surg History Medical History Chronic kidney disease, stage 4 (severe) FOLLOWS W/ DR. WILOCX GERD (gastroesophageal reflux disease) Hearing deficit BL [facility] Hyperlipidemia Hypertension Vitamin D deficiency Surgical History H/O tooth extraction History of cardiac cath 7 YEARS AGO - CP - HOSPITAL IN [place] - 2 STENTS PLACED - FOLLOWS W/ DR. ALFARO 6 YEARS AGO - REASON? - [facility] - NO STENTS/ANGIOPLASTY History of cataract surgery bilateral History of colonoscopy W/ POLYPECTOMY History of heart artery stent History of tonsillectomy Status post creation of arteriovenous fistula (~04/2017) Left wrist; [place] Family History Other Alzheimer disease Breast cancer Congestive heart failure Prostate cancer Social History Smoking Status: Former smoker Cigarettes Per Day: quit many years ago; Second Hand Exposure: No; Hx Alcohol Use: No Hx Substance Use: No Preferred Language: Kiswahili Communication Ability: Effective Manager Of Network Required: No Beliefs That Will Affect Care: None Current Living Situation: Spouse Feels Safe at Home: Yes Assistive Devices: Denture - Upper, Denture - Lower, Glasses and Hearing Aid - Bilateral Review of Systems A total of 10 systems reviewed and were otherwise negative Physical Exam Vital Signs Vital Signs - 24 hr 12/06/19 09:35 12/06/19 12:16 Temperature 36.9 C Temperature Source Oral Pulse Rate 74 Pulse Rate [Apical] 68 Pulse Rhythm Regular Regular Pulse Rhythm [Apical] Regular Pulse Strength Normal Pulse Strength [Apical] Normal Respiratory Rate 20 20 Respiratory Effort / Characteristics Non-Labored Spontaneous Non-Labored Spontaneous Respiratory Depth Normal Normal Respiratory Pattern Regular Regular Blood Pressure 121/70 Blood Pressure [Right Arm] 141/69 H Blood Pressure Mean 87 Blood Pressure Mean [Right Arm] 93 Blood Pressure Position Sitting Blood Pressure Position [Right Arm] Sitting Pulse Oximetry 97 96 Oxygen Delivery Method Room Air Room Air Sepsis Recent Fever Within 48 Hours No Sepsis New/Unexplained Change in Mental Status No Sepsis Action Taken by Nursing No Action Required General: Well developed well nourished not ill-appearing older male who appears in no acute distress, breathing comfortably on room air. Normal speech HEENT: Normal cephalic atraumatic. Pupils are equal round and reactive to light. Extraocular movements are intact. Oropharynx is pink with moist mucous membranes. No swelling of the mouth lips or tongue. Neck: Supple with a midline trachea. No meningeal signs or stiffness, no JVD or bruits. No Stridor. Chest: Clear to auscultation bilaterally. No wheezes or rhonchi. No increased work of breathing. Heart: Regular rate and rhythm without murmurs or gallops. Abdomen: Soft nontender, nondistended without rebound guarding or rigidity. Extremities: No cyanosis clubbing or edema. No calf tenderness or assymetry Spine/Back. Non tender to palpation. No CVA tenderness Skin: Good turgor without rashes. There is some rash in the flank that is red and palpable, maculopapular. No vasculitic appearing rash. No shingles or blisters. It is diffuse. Neurologic exam: Cranial nerves two through 12 are intact. Motor and sensation are intact and symmetrical throughout. Course Administered Medications Discontinued Medications Sodium Chloride (Nss 1000ml) 500 mls @ 999 mls/hr IV .Q31M ONE Stop: 12/06/19 12:36 Last Infusion: 12/06/19 12:46 Dose: 0 mls/hr Documented by: [id number] Admin: 12/06/19 12:16 Dose: 999 mls/hr Documented by: [id number] Medical Decision Making Differential Diagnosis Hematuria, renal failure, anemia, kidney stone, urologic malignancy, dehy dration, cardiac disease, electrolyte or metabolic abnormality Medical Records Attestation: I reviewed the patient's medical records. Home Medications Current Medication List: was personally reviewed by me Laboratory Data Attestation: I reviewed the patient's lab results. Result diagrams: 12/06/19 10:22 12/06/19 10:22 Lab Results 12/06/19 12/06/19 12/06/19 Range/Units 10:22 10:22 10:22 WBC 5.67 (4.8-10.8) K/uL RBC 3.24 L (4.7-6.1) M/uL Hgb 10.3 L (14.0-18.0) g/dL Hct 30.0 L (42-52) % MCV 92.6 (80-100) fL MCH 31.8 (25-34) pg MCHC 34.3 (32-36) g/dL RDW Std Deviation 43.3 (36.4-46.3) fL RDW Coeff of Hermes 12.7 (11.5-14.5) % Plt Count 73 L (130-400) K/uL MPV 11.3 H (7.4-10.4) fL Immature Gran % (Auto) 0.4 % Neut % (Auto) 64.1 % Lymph % (Auto) 21.0 % Fleming % (Auto) 13.4 % Eos % (Auto) 0.9 % Baso % (Auto) 0.2 % Neut # (Auto) 3.64 (1.4-6.5) K/uL Lymph # (Auto) 1.19 L (1.2-3.4) K/uL Fleming # (Auto) 0.76 H (0.11-0.59) K/uL Eos # (Auto) 0.05 (0-0.5) K/uL Baso # (Auto) 0.01 (0-0.2) K/uL Immature Gran # (Auto) 0.02 (0.00-0.02) K/uL PT 10.9 (9.0-12.0) Seconds INR 1.0 (0.9-1.1) APTT 28.6 (21.0-31.0) Seconds PTT Ratio 1.0 Sodium 137 (136-145) mmol/L Potassium 3.9 (3.5-5.1) mmol/L Chloride 111 H (98-107) mmol/L Carbon Dioxide 18 L (21-32) mmol/L Anion Gap 8.0 (3-11) BUN 86 H (7-18) mg/dl Creatinine 4.47 H (0.6-1.4) mg/dl Est Cr Clr Drug Dosing 13.4 ml/min Est GFR ( Amer) 13.3 Est GFR (Non-Af Amer) 11.5 BUN/Creatinine Ratio 19.1 (10-20) Glucose 125 H (70-99) mg/dl Calcium 8.5 (8.5-10.1) mg/dl Total Bilirubin 0.4 (0.2-1) mg/dl AST 13 L (15-37) U/L ALT 21 (12-78) U/L Alkaline Phosphatase 62 (45-117) U/L Total Protein 6.9 (6.4-8.2) gm/dl Albumin 2.9 L (3.4-5.0) gm/dl Globulin 4.0 (2.5-4.0) gm/dl Albumin/Globulin Ratio 0.7 L (0.9-2) Lipase 371 (73-393) U/L Urine Color Urine Appearance (Clear) Urine pH (4.5-7.5) POC Urine pH (4.5-7.5) Ur Specific [place] (1.000-1.030) Urine Protein (Negative) POC Urine Protein (Negative) Urine Glucose (UA) (Negative) POC Ur Glucose (UA) (Normal) Urine Ketones (Negative) POC Urine Ketones (Negative) Urine Blood (Negative) POC Urine Blood (Negative) Urine Nitrite (Negative) POC Urine Nitrite (Negative) Urine Bilirubin (Negative) POC Urine Bilirubin (Negative) Urine Urobilinogen (Negative) POC Urine Urobilinogen (Normal) Ur Leukocyte Esterase (Negative) POC U Leukocyte Esteras (Negative) Urine WBC (Auto) (0-5) /hpf Urine RBC (Auto) (0-4) /hpf U Hyaline Cast (Auto) (0-5) /lpf U Epithel Cells (Auto) (0-5) /lpf Urine Bacteria (Auto) (Negative) Amorphous Sediment (None Prsent) Urine Yeast 12/06/19 12/06/19 Range/Units 12:21 12:21 WBC (4.8-10.8) K/uL RBC (4.7-6.1) M/uL Hgb (14.0-18.0) g/dL Hct (42-52) % MCV (80-100) fL MCH (25-34) pg MCHC (32-36) g/dL RDW Std Deviation (36.4-46.3) fL RDW Coeff of Hermes (11.5-14.5) % Plt Count (130-400) K/uL MPV (7.4-10.4) fL Immature Gran % (Auto) % Neut % (Auto) % Lymph % (Auto) % Fleming % (Auto) % Eos % (Auto) % Baso % (Auto) % Neut # (Auto) (1.4-6.5) K/uL Lymph # (Auto) (1.2-3.4) K/uL Fleming # (Auto) (0.11-0.59) K/uL Eos # (Auto) (0-0.5) K/uL Baso # (Auto) (0-0.2) K/uL Immature Gran # (Auto) (0.00-0.02) K/uL PT (9.0-12.0) Seconds INR (0.9-1.1) APTT (21.0-31.0) Seconds PTT Ratio Sodium (136-145) mmol/L Potassium (3.5-5.1) mmol/L Chloride (98-107) mmol/L Carbon Dioxide (21-32) mmol/L Anion Gap (3-11) BUN (7-18) mg/dl Creatinine (0.6-1.4) mg/dl Est Cr Clr Drug Dosing ml/min Est GFR ( Amer) Est GFR (Non-Af Amer) BUN/Creatinine Ratio (10-20) Glucose (70-99) mg/dl Calcium (8.5-10.1) mg/dl Total Bilirubin (0.2-1) mg/dl AST (15-37) U/L ALT (12-78) U/L Alkaline Phosphatase (45-117) U/L Total Protein (6.4-8.2) gm/dl Albumin (3.4-5.0) gm/dl Globulin (2.5-4.0) gm/dl Albumin/Globulin Ratio (0.9-2) Lipase (73-393) U/L Urine Color Dark Yellow Urine Appearance Cloudy A (Clear) Urine pH 5.0 (4.5-7.5) POC Urine pH 5 (4.5-7.5) Ur Specific [place] 1.012 (1.000-1.030) Urine Protein 2+ H (Negative) POC Urine Protein 2+ H (Negative) Urine Glucose (UA) Negative (Negative) POC Ur Glucose (UA) Normal (Normal) Urine Ketones Negative (Negative) POC Urine Ketones Negative (Negative) Urine Blood 3+ H (Negative) POC Urine Blood 250 H (Negative) Urine Nitrite Negative (Negative) POC Urine Nitrite Negative (Negative) Urine Bilirubin Negative (Negative) POC Urine Bilirubin Negative (Negative) Urine Urobilinogen Negative (Negative) POC Urine Urobilinogen Normal (Normal) Ur Leukocyte Esterase Trace H (Negative) POC U Leukocyte Esteras Trace H (Negative) Urine WBC (Auto) 5-10 H (0-5) /hpf Urine RBC (Auto) >30 H (0-4) /hpf U Hyaline Cast (Auto) 0 (0-5) /lpf U Epithel Cells (Auto) 0-5 (0-5) /lpf Urine Bacteria (Auto) Negative (Negative) Amorphous Sediment Present A (None Prsent) Urine Yeast Not Reportable Imaging Data Attestation: I personally reviewed and interpreted this imaging study as follows: Radiologist's Impression: ABDOMEN AND PELVIS CT WITHOUT CONTRAST CT DOSE: 379.24 mGy.cm HISTORY: hematuria TECHNIQUE: Multiaxial CT images of the abdomen and pelvis were performed without contrast. A dose lowering technique was utilized adhering to the principles of ALARA. COMPARISON STUDY: Abdomen and pelvis CT 05/17/2019. FINDINGS: Lung bases are clear. Interval healing right posterior 10th rib fracture. No pneumatosis or pneumoperitoneum. Imaged inferior cardiac chambers are mildly enlarged with coronary artery calcifications. No pericardial effusion. The spleen, pancreas, adrenal glands and liver appear unremarkable. Contracted gallbladder. No biliary ductal dilation identified. Multifocal scarring with parenchymal thinning of the left kidney. 4 mm nonobstructing calculus of the superior pole of the left kidney. A 3 mm calcification within the superior pole of the right kidney suggestive of an additional nonobstructing calculus. There are multiple indeterminate hypodensities of the bilateral kidneys, statistically favoring renal cysts. Additionally, there are several hypodense lesions of the kidneys measuring up to 1.6 cm within the inferior pole left kidney and 1.5 cm within the inferior pole right kidney. These are indeterminate however suggestive of probable hemorrhagic or proteinaceous cysts. No ureteral calculi or obstructive uropathy identified. There are multiple phleboliths of the pelvis. Mild wall thickening and trabeculation of the urinary bladder with prostamegaly. No retroperitoneal hematoma. Extensive calcified plaque of the abdominal aorta with tortuosity. No aneurysm. No bowel obstruction or bowel wall thickening. Colonic diverticulosis without acute diverticulitis.. Normal appendix. Tiny fat filled periumbilical hernia. Tiny fat-containing right inguinal hernia. Multilevel degenerative changes of the spine with posterior disc osteophyte complex formations. Grade 1 anterolisthesis L4 on L5 is likely secondary to long-standing facet arthrosis. Schmorl's nodes are present at the L2-L3 level, unchanged from comparison. IMPRESSION: 1. Nonobstructing bilateral nephrolithiasis, unchanged. No ureteral calculi or obstructive uropathy. 2. Bilateral renal hypodensities redemonstrated suggestive of probable cysts with bilateral hyperdense lesions also again noted suggestive of proteinaceous or hemorrhagic cysts, incompletely characterized on this noncontrast study. 3. Interval healing right posterior 10th rib fracture. 4. Colonic diverticulosis without acute diverticulitis. 5. No bowel obstruction or bowel wall thickening. ECG Data Attestation: I personally reviewed and interpreted this ECG as follows: MDM Narrative This patient comes in as described above. He was placed in room C1. He is here for treatment and evaluation of hematuria. IV access established and blood work was obtained as well as urinalysis and culture. I also did a noncontrast CT. His creatinine has gotten worse than before. Has been progressively getting worse. He was in the mid 2 range earlier this year and bumped up in the 3 range and was 3.8 a week ago and is now 4.47. Potassium is stable. His hemoglobin is stable. He has no white count or fever. He does have some thrombocytopenia which is about what it typically runs. I did a CAT scan there is no obstructive uropathy. His urinalysis is pending however from a week ago there is no UTI. I do think he needs to be admitted/observed. I did give him a small fluid bolus of 500 cc IV. He may have a prerenal component as well. But I am concerned about his worsening of renal failure. He does have a fistula his left arm from previous discussion with his ep specialist about renal failure but he has not needed it thus far. Continuous cardiac monitoring: An order was placed in the EMR for continuous cardiac monitoring and he was noted to be in normal sinus with a pulse of 65 Impression & Plan Acute renal failure, Acute dehydration, Weakness, Hematuria Discharge Plan Visit Data Chief Complaint: Urinary Symptoms Stated Complaint: BLOOD IN URINE ED Provider: Vijay Hendrickson Discharge Problem: Acute renal failure, Acute dehydration, Weakness, Hematuria Forms Stand Alone Forms: My [facility] [place] [employer] Prescriptions Prescriptions: No Action allopurinol 100 mg tablet 100 mg PO QAM Qty: 90 RF: 3 amlodipine 5 mg tablet 5 mg PO QAM Qty: 90 RF: 3 tadalafil 5 mg tablet 5 mg PO DAILY PRN (Reason: sexual activity) Qty: 20 RF: 2 atorvastatin 80 mg tablet 80 mg PO HS Qty: 90 RF: 3 furosemide 40 mg tablet 20 mg PO DAILY PRN (Reason: edema) Qty: 30 RF: 11 cholecalciferol (vitamin D3) 50 mcg (2,000 unit) tablet 50 mcg PO DAILY RF: 0 melatonin 10 mg capsule 10 mg PO HS PRN (Reason: Sleep) RF: 0 aspirin 81 mg Tablet,Delayed Release (Dr/Ec) 81 mg PO QAM RF: 0 Discharge Problem: Acute renal failure Qualifiers: Acute renal failure type: unspecified Qualified Code(s): N17.9 - Acute kidney failure, unspecified Hematuria Qualifiers: Hematuria type: gross Qualified Code(s): R31.0 - Gross hematuria
[2019-12-06 10:40] LABS: Hemoglobin 10.3 g/dL (14.0-18.0); Mean Corpuscular Hemoglobin 31.8 pg (25-34); Mean Corpuscular Hgb Conc 34.3 g/dL (32-36); Mean Corpuscular Volume 92.6 fL (80-100); RDW Coefficient of Variation 12.7 % (11.5-14.5); RDW Standard Deviation 43.3 fL (36.4-46.3); Red Blood Count 3.24 M/uL (4.7-6.1); White Blood Count 5.67 K/uL (4.8-10.8)
[2019-12-06 10:51] LABS: Partial Thromboplastin Time 28.6 Seconds (21.0-31.0); Prothrombin Time 10.9 Seconds (9.0-12.0)
[2019-12-06 10:54] LABS: Mean Platelet Volume 11.3 fL (7.4-10.4); Platelet Count 73 K/uL (130-400)
[2019-12-06 10:58] LABS: Albumin Level 2.9 gm/dl (3.4-5.0); BUN Creatinine Ratio 19.1 (10-20); Calcium 8.5 mg/dl (8.5-10.1); Creatinine Clr Calc Pharmacy 13.4 ml/min; Est GFR (African American) 13.3; Est GFR (Non-African American) 11.5; Potassium 3.9 mmol/L (3.5-5.1)
[2019-12-06 11:00] LABS: Albumin Globulin Ratio 0.7 (0.9-2); Bilirubin,Total 0.4 mg/dl (0.2-1); Total Protein 6.9 gm/dl (6.4-8.2)
[2019-12-06 11:05] LABS: Basophils # (auto) 0.01 K/uL (0-0.2); Basophils % (auto) 0.2 %; Eosinophils # (auto) 0.05 K/uL (0-0.5); Eosinophils % (auto) 0.9 %; Immature Granulocytes # (auto) 0.02 K/uL (0.00-0.02); Immature Granulocytes % (auto) 0.4 %; Lymphocytes # (auto) 1.19 K/uL (1.2-3.4); Monocytes # (auto) 0.76 K/uL (0.11-0.59); Monocytes % (auto) 13.4 %; Neutrophils # (auto) 3.64 K/uL (1.4-6.5); Neutrophils % (auto) 64.1 %
--- NOTE | 2019-12-06 11:44 | CT Scan Report ---
ABDOMEN AND PELVIS CT WITHOUT CONTRAST CT DOSE: 379.24 mGy.cm HISTORY: hematuria TECHNIQUE: Multiaxial CT images of the abdomen and pelvis were performed without contrast. A dose lo wering technique was utilized adhering to the principles of ALARA. COMPARISON STUDY: Abdomen and pelvis CT 05/17/2019. FINDINGS: Lung bases are clear. Interval healing right posterior 10th rib fracture. No pneumatosis or pneumoperitoneum. Imaged inferior cardiac chambers are mildly enlarged with coronary artery calcific ations. No pericardial effusion. The spleen, pancreas, adrenal glands and liver appear unremarkable. Contracted gallbladder. No biliary ductal dilation identified. Multifocal scarring with parenchymal thinning of the left kidney. 4 mm nonobstructing calculus of the superior pole of the left kidney. A 3 mm calcification within the superior pole of the right kidney suggestive of an additional nonobstructing calculus. There are multiple indeterminate hypodensities o f the bilateral kidneys, statistically favoring renal cysts. Additionally, there are several hypodens e lesions of the kidneys measuring up to 1.6 cm within the inferior pole left kidney and 1.5 cm withi n the inferior pole right kidney. These are indeterminate however suggestive of probable hemorrhagic or proteinaceous cysts. No ureteral calculi or obstructive uropathy identified. There are multiple ph leboliths of the pelvis. Mild wall thickening and trabeculation of the urinary bladder with prostameg danuta. No retroperitoneal hematoma. Extensive calcified plaque of the abdominal aorta with tortuosity. No aneurysm. No bowel obstruction or bowel wall thickening. Colonic diverticulosis without acute diverticulitis.. Normal appendix. Tiny fat filled periumbilical hernia. Tiny fat-containing right inguinal hernia. Mul tilevel degenerative changes of the spine with posterior disc osteophyte complex formations. Grade 1 anterolisthesis L4 on L5 is likely secondary to long-standing facet arthrosis. Schmorl's nodes are pr esent at the L2-L3 level, unchanged from comparison. IMPRESSION: 1. Nonobstructing bilateral nephrolithiasis, unchanged. No ureteral calculi or obstructive uropathy. 2. Bilateral renal hypodensities redemonstrated suggestive of probable cysts with bilateral hyperdens e lesions also again noted suggestive of proteinaceous or hemorrhagic cysts, incompletely characteriz ed on this noncontrast study. 3. Interval healing right posterior 10th rib fracture. 4. Colonic diverticulosis without acute diverticulitis. 5. No bowel obstruction or bowel wall thickening. ACT 112: Negative or not required by law. Electronically signed by: Sher Mendes M.D. 12/06/2019 11:43 AM
[2019-12-06] MEDS ORDERED: SODIUM CHLORIDE 0.9% 1000ML 500 ML IV ONE (12:06)
[2019-12-06 12:29] LABS: POC Urine Bilirubin Negative (Negative); POC Urine Blood 250 (Negative); POC Urine Glucose Normal (Normal); POC Urine Ketones Negative (Negative); POC Urine Leukocytes Trace (Negative); POC Urine Nitrite Negative (Negative); POC Urine Protein 2+ (Negative); POC Urine Urobilinogen Normal (Normal); POC Urine pH 5 (4.5-7.5)
[2019-12-06 12:39] LABS: Appearance Urine Cloudy (Clear); Bacteria Urine Automated Negative (Negative); Bilirubin Urine Negative (Negative); Blood Urine 3+ (Negative); Cast Urine Automated 0 /lpf (0-5); Epithelial Cell Urine Auto 0-5 /lpf (0-5); Glucose Urine UA Negative (Negative); Ketones Urine Negative (Negative); Leukocyte Esterase Urine Trace (Negative); Nitrite Urine Negative (Negative); Protein Urine 2+ (Negative); RBC Urine Automated >30 /hpf (0-4); Specific Gravity Urine 1.012 (1.000-1.030); Urobilinogen Urine Negative (Negative)
[2019-12-06 12:41] LABS: Color Urine Dark Yellow
[2019-12-06 12:57] LABS: Amorphous Sediment Urine Present (None Prsent)
--- NOTE | 2019-12-06 15:46 | History & Physical Report ---
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 Holding aspirin Hb 10.3 on admission, baseline is 11.3-12.5 Monitor (4) BPH w/o urinary obs/LUTS: No current medications (5) Hyperlipidemia: continue home meds (6) Hypertension: continue home meds (7) Chronic kidney disease, stage 4 (severe): Fistula placed 2017, no hx of HD Baseline cr 2.9-3.2 (8) Thrombocytopenia: Noted on several recent labs as far back as 05/2019 Seems to be around 70s-80s Also noted to drop to the 90s during anaplasmosis Monitor (9) DVT prophylaxis: History of Present Illness Primary Care Provider: Nico Jordan MD 79 y/o M c/o blood in his urine. Pt states that he was outside doing a lot of heavy lifting in the yard are few weeks ago. He felt suddenly unwell and came inside to urinate. His urine at that time was bright red blood. He felt it was thicker than usual and mostly blood. He has continued to pass blood "in some color" over the last two weeks. It has never been quite like the initial episode, but has been darker or orange. He does note that today it was "almost normal" in that it was more yellow, although a darker yellow. Pt notes that he has had UAs come back with microscopic blood many times over the last 30 yrs, but no hx of actually visualizing blood. He has had no issues with urination otherwise. He is still going about every 4 hours, which is usual. No pain, incomplete urination, stopping/starting, etc. No flank pain. Pt called his urology office and was told his urologist, Dr. Lowry, was out of the office and that someone would call him back. This did not happen, so he called his back end web developer, Dr. Wilcox. Labs were ordered at that time, however pt states there was no f/u. He called the office today and was directed to the ED. Pt states that he had an episode of n/v the first night after the bleeding and then he felt like "my body reset completely" and it did not happen again until early this AM. He has been eating without issue other than a low appetite the last few weeks. Pt notes that yesterday he felt very weak and tired. He states he was walking around his house "like an old man". He was sore and had body aches and just felt generally unwell. This has resolved ever since his episode of emesis early this AM. Pt's noticed this AM that pt has a rash all over his back. He states it does not itch or otherwise bother him. He would not have known it was there had she not seen it. She is certain it was not there yesterday. During my exam, it was noted that pt has a rash on his legs that was not there this morning. Pt notes increased bruising over the last 2 weeks as well. Pt states he has hx of "one of the other tick illnesses" that was tx here several years ago. He notes finding a tick a few weeks ago. He states they have ticks around their home and he gets several bites a year. He also notes that a few weeks ago he came home from fishing and had some sort of bites all over his face that were itchy. He does not know what bit him at that time. Pt denies fever, SOB, chest pain, abd pain, c/d, LE pain or swelling. Allergies Allergy/AdvReac Type Severity Reaction Status Date / Time Sulfa (Sulfonamide Allergy Unknown "DON'T Verified 12/06/19 10:36 Antibiotics) REMEMBER, IT WAS SO LONG AGO" Home Medications Home Medications Medication Instructions Recorded Confirmed Type aspirin 81 mg PO QAM 05/06/18 12/06/19 History melatonin 10 mg capsule 10 mg PO HS PRN 11/02/18 12/06/19 History allopurinol 100 mg tablet 100 mg PO QAM #90 tab 01/18/19 12/06/19 Rx amlodipine 5 mg tablet 5 mg PO QAM #90 tab 04/23/19 12/06/19 Rx cholecalciferol (vitamin D3) 50 50 mcg PO DAILY 07/02/19 12/06/19 History mcg (2,000 unit) tablet tadalafil 5 mg tablet 5 mg PO DAILY PRN #20 tab 08/11/19 12/06/19 Rx atorvastatin 80 mg tablet 80 mg PO HS #90 tab 09/06/19 12/06/19 Rx furosemide 40 mg tablet 20 mg PO DAILY PRN #30 tab 11/09/19 12/06/19 Rx Past Med/Surg History Medical History Chronic kidney disease, stage 4 (severe) FOLLOWS W/ DR. WILCOX GERD (gastroesophageal reflux disease) Hearing deficit BL AVINA Hyperlipidemia Hypertension Vitamin D deficiency Surgical History H/O tooth extraction History of cardiac cath 7 YEARS AGO - - HOSPITAL IN [place] - 2 STENTS PLACED - FOLLOWS W/ DR. ALFARO 6 YEARS AGO - REASON? - [facility] - NO STENTS/ANGIOPLASTY History of cataract surgery bilateral History of colonoscopy W/ POLYPECTOMY History of heart artery stent History of tonsillectomy Status post creation of arteriovenous fistula (~04/2017) Left wrist; [place] Family History Other Alzheimer disease Breast cancer Congestive heart failure Prostate cancer Social History Smoking Status: Former smoker Cigarettes Per Day: quit many years ago; Second Hand Exposure: No; Hx Alcohol Use: No Hx Substance Use: No Preferred Language: Japanese Communication Ability: Effective Electric Deicer Inspector Required: No Beliefs That Will Affect Care: None Current Living Situation: Spouse Feels Safe at Home: Yes Assistive Devices: Denture - Upper, Denture - Lower, Glasses and Hearing Aid - Bilateral Review of Systems Review of Systems: Pertinent positives and negatives reviewed in HPI--all others negative Physical Exam Constitutional: WD/WN, vitals as above Eyes: normal visual johnson by confrontation and + anicteric sclerae Neck: normal visual inspection and trachea midline Respiratory: normal respiratory effort, lungs clear to auscultation Cardiovascular: Rate/Rhythm: regular rate and regular rhythm Gastrointestinal (Abdomen): Inspection/Auscultation: abdomen not distended Percussion/Palpation: abdomen soft; abdomen nontender Musculoskeletal: Head/Neck/Chest: normocephalic and head atraumatic negative for edema, peripheral pulses intact Skin: Bruise on R bicep, healing Rash on L>R side of back that is spread out, raised, splotchy, pale red R of b/l shins that is more confluent and more of a dark red than rash on back Neurologic: awake; not confused Speech / Cognition: normal speech Psychiatric: A+Ox3, euthymic affect Results & Data Results & Data ([facility]) Vital Signs (Past 12 Hours) Vital Signs Temp Pulse Pulse Resp BP BP Pulse Ox 12/06/19 12:16 68 20 141/69 H 96 12/06/19 09:35 36.9 C 74 20 121/70 97 Diagnostic Findings CTAP: b/l nephritis, renal cysts c/w proteinaceous vs hemorrhagic cysts Code Status & VTE Plan Code Status Full code VTE Prophylaxis Plan VTE Prophylaxis will be ordered: Yes PG Care Time/CCT Total # of Minutes Spent Total Time Spent with Patient: Total time spent is greater than 50% in coordination of care (as documented) at patient's floor/unit and/or counseling patient: Coding Level of Care Code 69769 Initial Inpt Care Lvl 3 Diagnoses Acute renal failure N17.9 Acute renal failure type: unspecified Rash R21 Hematuria R31.0 Hematuria type: gross BPH w/o urinary obs/LUTS N40.0 Hyperlipidemia E78.5 Hypertension I10 Chronic kidney disease, stage 4 (severe) N18.4 Thrombocytopenia D69.6 DVT prophylaxis Z29.9 (1) Acute renal failure Acute renal failure type: unspecified Qualified Code(s): N17.9 - Acute kidney failure, unspecified (2) Hematuria Hematuria type: gross Qualified Code(s): R31.0 - Gross hematuria
[2019-12-06] MEDS ORDERED: ACETAMINOPHEN 325 MG TAB PO PRN (18:46)
[2019-12-06] MEDS ORDERED: ONDANSETRON INJ 2 MG/ML 2 ML VIAL IV PRN (18:46)
[2019-12-06] MEDS ORDERED: MAGNESIUM HYDROXIDE SUSP 30 ML UDC PO PRN (18:46)
[2019-12-06] MEDS ORDERED: FUROSEMIDE 20 MG TAB PO PRN (18:46)
[2019-12-06] MEDS ORDERED: MELATONIN 3 MG TAB PO PRN (19:00)
[2019-12-06] MEDS: DOXYCYCLINE HYCLATE 100 MG in DEXTROSE 5% 100 ML IV SCH (19:40)
--- NOTE | 2019-12-06 21:09 | Ultrasound Report ---
US renal/blad retro comp HISTORY: 79 years-old Male renal cysts, bladder wall thickening follow-up study in a patient with re ported renal mass and hematuria COMPARISON: CT abdomen and pelvis of same day and also 05/17/2019 TECHNIQUE: Multiple real-time sonographic images of the kidneys and urinary bladder were obtained ass essing grayscale appearance and color flow FINDINGS: Right kidney measures 12.2 x 6.0 x 5.0 cm and is diffusely echogenic without hydronephrosis. Diffuse cortical thinning. There is a 5 mm nonobstructing calculus of the interpolar right kidney. Multiple right renal cysts. There is a hypoechoic complex lesion of the inferior pole left kidney, 3.3 x 3.4 x 3.4 cm demonstrating small peripheral cystic components without color flow. The left kidney measures 12.3 x 6.2 x 5.9 cm and is diffusely echogenic without hydronephrosis. Corti steve thinning is also noted on the left. Numerous left-sided renal cysts, the largest within the infer ior pole measuring 2.8 x 2.3 x 2.4 cm which appears simple. Nonobstructing bilateral renal calculi me asure up to approximately 3 mm. No solid renal mass lesions on the left identified. There are several complex appearing renal cysts noted. Partial distention of the urinary bladder with mild wall thickening. Ureteral jets not identified. IMPRESSION: 1. Nonobstructing bilateral nephrolithiasis without hydronephrosis. 2. Increased echogenicity of the kidneys with cortical thinning suggests chronic medical renal diseas e. 3. Bilateral simple and complex cysts redemonstrated. 3.4 cm lesion of the inferior pole right kidney without color flow identified may also reflect a complex cyst. ACT 112: Negative or not required by law. The above report was generated using voice recognition software. It may contain grammatical, syntax o r spelling errors. Electronically signed by: Emmett Carpenter M.D. 12/06/2019 9:07 PM
[2019-12-06] MEDS: ATORVASTATIN 40 MG TAB PO SCH (21:15)
[2019-12-06 21:38] LABS: Lyme Ab IgM w/WB Rflx Negative (Negative)
[2019-12-06 21:41] LABS: Lyme Ab IgG w/WB Rflx Positive (Negative)
[2019-12-07] MEDS: DOXYCYCLINE HYCLATE 100 MG in DEXTROSE 5% 100 ML IV SCH ×2 (05:46→19:11)
[2019-12-07] MEDS: CHOLECALCIFEROL 1,000 UNITS 25 MCG TAB PO SCH (07:44)
[2019-12-07] MEDS: amLODIPine BESYLATE 5 MG TAB PO SCH (07:44)
[2019-12-07] MEDS: allopurinoL 100 MG TAB PO SCH (07:44)
[2019-12-07 08:29] LABS: Hematocrit (blood only) 28.1 % (42-52); Hemoglobin 9.5 g/dL (14.0-18.0); Mean Corpuscular Hemoglobin 31.7 pg (25-34); Mean Corpuscular Hgb Conc 33.8 g/dL (32-36); Mean Corpuscular Volume 93.7 fL (80-100); RDW Coefficient of Variation 12.7 % (11.5-14.5); RDW Standard Deviation 43.6 fL (36.4-46.3); White Blood Count 4.93 K/uL (4.8-10.8)
[2019-12-07 08:46] LABS: Mean Platelet Volume 11.4 fL (7.4-10.4); Platelet Count 72 K/uL (130-400)
[2019-12-07 08:52] LABS: Basophils # (auto) 0.01 K/uL (0-0.2); Basophils % (auto) 0.2 %; Eosinophils # (auto) 0.08 K/uL (0-0.5); Eosinophils % (auto) 1.6 %; Immature Granulocytes # (auto) 0.01 K/uL (0.00-0.02); Immature Granulocytes % (auto) 0.2 %; Lymphocytes # (auto) 1.27 K/uL (1.2-3.4); Lymphocytes % (auto) 25.8 %; Monocytes # (auto) 0.61 K/uL (0.11-0.59); Monocytes % (auto) 12.4 %; Neutrophils # (auto) 2.95 K/uL (1.4-6.5); Neutrophils % (auto) 59.8 %
--- NOTE | 2019-12-07 08:59 | Hospitalist Progress Note ---
Date of Service December 07, 2019 Assessment & Plan (1) Acute renal failure: JIN on CKD 4 likely dehydrated due to poor PO intake and continuing to take lasix IV fluids were given, holding lasix baseline Cr 2.6 - 3, up to 4.47 (12-05) renal ultrasound and CT a/p -- kidneys not obstructed appreciate nephrology consult -- they started sodium bicarb tabs (2) Anemia: normocytic likely related to underlying renal failure no schistocytes on peripheral smear (3) Thrombocytopenia: new since 05-30 unknown etiology smear confirms decreased platelets checking for tickborne illnesses, ruled out TTP continue to monitor (4) Hematuria: chronic Appreciate urology consultation -- patient will have outpatient cystoscopy Per renal note (06-29) extensive urology evaluation in the past for microscopic hematuria, no definite malignancy, so hematuria thought 2' to renal cysts Holding aspirin Hb 10.3 on admission, baseline is 11.3-12.5 Monitor (5) Rash: Hx of tick bites, including recently 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 as noted yesterday Lyme, RMSF, rickettsial panel pending Start doxy given JIN Could also explain thrombocytopenia LFTs WNL (6) Hypertension: norvasc 5mg PO daily (7) Chronic kidney disease, stage 4 (severe): thought to be related to microvascular disease, hypertensive nephrosclerosis previous IgA, ESR, KVNG/ANCA, complement, hepatitis serology WNL per renal notes Fistula placed 2017, no hx of HD Baseline cr 2.9-3.2 (8) Hyperlipidemia: continue home meds (9) BPH w/o urinary obs/LUTS: No current medications (10) DVT prophylaxis: holding lovenox in setting of hematuria -- start SCDs regular diet CODE full Admission and Anticipated Discharge Date Admission Date: December 06, 2019 Subjective Patient had flu shot last weekend. About a week later developed body aches, weakness, poor appetite. Despite not eating or drinking well, patient continued to take his lasix 20mg PO daily. For the past two weeks, his hematuria has been much worse than usual with dark blood. Since arriving in hospital, his urine has become clear. He received IV fluids in ER. Currently tolerating PO liquids and has no complaints. Review of Systems Constitutional: no fever, no chills, no fatigue, no weakness, no anorexia, no weight loss and no weight gain Ear, Nose, Mouth, Throat: no nasal congestion, no sore throat and no dysphagia Respiratory: no cough and no dyspnea Cardiovascular: no chest pain, no dyspnea on exertion, no orthopnea and no palpitations Gastrointestinal: no abdominal pain, no nausea, no vomiting, no hematemesis, no dysphagia, no constipation, no diarrhea/loose stools, no blood in stools and no melena Musculoskeletal: no back pain, no joint pain, no myalgia and no muscle weakness Integumentary: no rash, no lesions, no skin ulcer, no erythema, no dry skin and no pruritus Neurologic: no falls, no localized weakness, no generalized weakness, no numbness, no paresthesia, no tremor(s) and no headache(s) Psychiatric: no depression, no suicidal ideation, no homicidal ideation and no anxiety Endocrine: no cold intolerance and no heat intolerance Hematologic / Lymphatic: no easy bleeding and no easy bruising Physical Exam Constitutional: well developed and well nourished; no acute distress appears stated age Eyes: PERRL, conjunctivae normal, anicteric sclerae ENMT: Mouth: + dry oral mucous membranes Respiratory: normal respiratory effort; no respiratory distress and no labored breathing Auscultation: lungs clear to auscultation bilaterally; no crackles, no rales, no rhonchi and no wheezes Cardiovascular: Rate/Rhythm: regular rate and regular rhythm Heart Sounds: no murmur and no cardiac rub Vessels: normal peripheral pulses and radial pulses present; no JVD Extremities: no edema Gastrointestinal (Abdomen): Inspection/Auscultation: abdomen normal to inspection and normal bowel sounds; abdomen not distended Percussion/Palpation: abdomen soft; abdomen nontender, no guarding, abdomen not rigid and no hepatosplenomegaly Musculoskeletal: Head/Neck/Chest: normocephalic and head atraumatic Spine: no cervical spinal tenderness, no cervical muscular tenderness, no thoracic spinal tenderness and no lumbar spinal tenderness Skin: no rashes, warm and dry Neurologic: CN's II-XI intact bilaterally and moves all extremities Motor/Sensory: no tremor and no sensory deficit Psychiatric: Orientation: alert, oriented to person, oriented to place and oriented to time Apperance: appropriately groomed; not disheveled Affect: euthymic affect; no anxious affect and no tearful affect Genitourinary: no Fink catheter Results & Data Results & [facility] ([facility]) Vital Signs (Past 12 Hours) Vital Signs Temp Pulse Resp BP Pulse Ox 12/07/19 07:14 36.9 C 62 18 126/63 97 12/07/19 00:08 37.5 C 69 20 133/64 96 Laboratory Results Hg 9.5 plt 73 UA with 2+ protein, 3+ blood, amorphous sediment, 5-10 WBC, > 30 RBC, negative nitrite, trace LE, no bacteria Lyme IgG positive Lyme IgM negative Lyme IgM western blot pending Q fever IgG/IgM pending Rickettsia IgG/IgM pending Typhus fever IgG/IgM pending Diagnostic Findings renal ultrasound IMPRESSION: 1. Nonobstructing bilateral nephrolithiasis without hydronephrosis. 2. Increased echogenicity of the kidneys with cortical thinning suggests chronic medical renal disease. 3. Bilateral simple and complex cysts redemonstrated. 3.4 cm lesion of the inferior pole right kidney without color flow identified may also reflect a complex cyst. CT abd/pelvis IMPRESSION: 1. Nonobstructing bilateral nephrolithiasis, unchanged. No ureteral calculi or obstructive uropathy. 2. Bilateral renal hypodensities redemonstrated suggestive of probable cysts with bilateral hyperdense lesions also again noted suggestive of proteinaceous or hemorrhagic cysts, incompletely characterized on this noncontrast study. 3. Interval healing right posterior 10th rib fracture. 4. Colonic diverticulosis without acute diverticulitis. 5. No bowel obstruction or bowel wall thickening. PG Care Time/CCT Total # of Minutes Spent Total Time Spent with Patient: Total time spent is greater than 50% in coordination of care (as documented) at patient's floor/unit and/or counseling patient: Coding Level of Care Code 01593 Subseq Hosp Care Lvl 3 Diagnoses Acute renal failure N17.9 Acute renal failure type: unspecified Anemia N18.4; D63.1 Anemia type: due to chronic kidney disease Chronic kidney disease stage: stage 4 (severe) Thrombocytopenia D69.6 Hematuria R31.0 Hematuria type: gross Rash R21 Hypertension I10 Hypertension type: unspecified Chronic kidney disease, stage 4 (severe) N18.4 Hyperlipidemia E78.5 Hyperlipidemia type: unspecified BPH w/o urinary obs/LUTS N40.0 DVT prophylaxis Z29.9 (1) Hematuria Hematuria type: gross Qualified Code(s): R31.0 - Gross hematuria (2) Acute renal failure Acute renal failure type: unspecified Qualified Code(s): N17.9 - Acute kidney failure, unspecified (3) Anemia Anemia type: due to chronic kidney disease Chronic kidney disease stage: stage 4 (severe) Qualified Code(s): N18.4 - Chronic kidney disease, stage 4 (severe); D63.1 - Anemia in chronic kidney disease (4) Hyperlipidemia Hyperlipidemia type: unspecified Qualified Code(s): E78.5 - Hyperlipidemia, unspecified (5) Hypertension Hypertension type: unspecified Qualified Code(s): I10 - Essential (primary) hypertension
[2019-12-07 09:00] LABS: Calcium 8.6 mg/dl (8.5-10.1); Creatinine Clr Calc Pharmacy 13.9 ml/min; Est GFR (Non-African American) 12.1; Potassium 3.8 mmol/L (3.5-5.1)
--- NOTE | 2019-12-07 11:13 | Urology Consultation ---
Date of Consultation December 07, 2019 Assessment & Plan (1) Hematuria: Assessment Gross hematuria-asymptomatic Most likely bleeding from the prostate Urine has since cleared CT and renal ultrasound reviewed We will schedule cystoscopy as an outpatient to rule out any intravesical pathology History of Present Illness Attending Physician: Heidy Davis MD History of Present Illness Patient is an 79-year-old white male who was admitted to the hospital with weakness. He had a history of gross hematuria as well We are asked to see the patient because of the hematuria. Patient says about 2 weeks ago he was doing a lot of lifting developed gross painless hematuria Hematuria lasted on and off about 2 weeks and has gradually cleared today his urine is clear yellow he says He had no flank pain no fevers no chills He had no troubles voiding He has had work-ups for hematuria in the past which have all been negative He is in chronic renal failure Patient had a CT and renal ultrasound which I reviewed they show bilateral renal cysts no hydroureteronephrosis or sign of renal obstruction Possible punctate renal calculi Urine culture which is pending Allergies Allergy/AdvReac Type Severity Reaction Status Date / Time Sulfa (Sulfonamide Allergy Unknown "DON'T Verified 12/06/19 10:36 Antibiotics) REMEMBER, IT WAS SO LONG AGO" Home Medications Home Medications Medication Instructions Recorded Confirmed Type aspirin 81 mg PO QAM 05/06/18 12/06/19 History melatonin 10 mg capsule 10 mg PO HS PRN 11/02/18 12/06/19 History allopurinol 100 mg tablet 100 mg PO QAM #90 tab 01/18/19 12/06/19 Rx amlodipine 5 mg tablet 5 mg PO QAM #90 tab 04/23/19 12/06/19 Rx cholecalciferol (vitamin D3) 50 50 mcg PO DAILY 07/02/19 12/06/19 History mcg (2,000 unit) tablet tadalafil 5 mg tablet 5 mg PO DAILY PRN #20 tab 08/11/19 12/06/19 Rx atorvastatin 80 mg tablet 80 mg PO HS #90 tab 09/06/19 12/06/19 Rx furosemide 40 mg tablet 20 mg PO DAILY PRN #30 tab 11/09/19 12/06/19 Rx Patient History Medical History Chronic kidney disease, stage 4 (severe) FOLLOWS W/ DR. WILCOX GERD (gastroesophageal reflux disease) Hearing deficit BL AVINA Hyperlipidemia Hypertension Vitamin D deficiency Surgical History H/O tooth extraction History of cardiac cath 7 YEARS AGO - CP - HOSPITAL IN [place] - 2 STENTS PLACED - FOLLOWS W/ DR. ALFARO 6 YEARS AGO - REASON? - [facility] - NO STENTS/ANGIOPLASTY History of cataract surgery bilateral History of colonoscopy W/ POLYPECTOMY History of heart artery stent History of tonsillectomy Status post creation of arteriovenous fistula (~04/2017) Left wrist; Simoni Family History Other Alzheimer disease Breast cancer Congestive heart failure Prostate cancer Social History Smoking Status: Former smoker Cigarettes Per Day: 1 pack every other day; Second Hand Exposure: No; Hx Alcohol Use: Yes Hx Substance Use: No Preferred Language: [place] Communication Ability: Effective Executive Relations Specialist Required: No Beliefs That Will Affect Care: None Current Living Situation: Spouse Feels Safe at Home: Yes Assistive Devices: Glasses Physical Exam Physical Exam: Well-developed well-nourished white male no acute distress Temperature 36.9 pulse 62 respirate 18 blood pressure 126/63 Neurologically alert and oriented x3 Lungs no respiratory distress GI abdomen soft nontender phallus shows a normal male without lesion Meatus normal size and position Extremities without calf pain or edema Results & Data ([facility]) Vital Signs (Past 12 Hours) Vital Signs Temp Pulse Resp BP Pulse Ox 12/07/19 07:14 36.9 C 62 18 126/63 97 12/07/19 00:08 37.5 C 69 20 133/64 96 Laboratory Results Laboratory Results - last 24 hr 12/06/19 12/06/19 12/06/19 12:21 12:21 19:04 WBC RBC Hgb Hct MCV MCH MCHC RDW Std Deviation RDW Coeff of Hermes Plt Count MPV Immature Gran % (Auto) Neut % (Auto) Lymph % (Auto) [place] % (Auto) Eos % (Auto) Baso % (Auto) Neut # (Auto) Lymph # (Auto) [place] # (Auto) Eos # (Auto) Baso # (Auto) Immature Gran # (Auto) Peripher Smr Path Cons Haptoglobin Sodium Potassium Chloride Carbon Dioxide Anion Gap BUN Creatinine Est Cr Clr Drug Dosing Est GFR ( Amer) Est GFR (Non-Af Amer) BUN/Creatinine Ratio Glucose POC Glucose Calcium Lactate Dehydrogenase Urine Color Dark Yellow Urine Appearance Cloudy A Urine pH 5.0 POC Urine pH 5 Ur Specific [place] 1.012 Urine Protein 2+ H POC Urine Protein 2+ H Urine Glucose (UA) Negative POC Ur Glucose (UA) Normal Urine Ketones Negative POC Urine Ketones Negative Urine Blood 3+ H POC Urine Blood 250 H Urine Nitrite Negative POC Urine Nitrite Negative Urine Bilirubin Negative POC Urine Bilirubin Negative Urine Urobilinogen Negative POC Urine Urobilinogen Normal Ur Leukocyte Esterase Trace H POC U Leukocyte Esteras Trace H Urine WBC (Auto) 5-10 H Urine RBC (Auto) >30 H U Hyaline Cast (Auto) 0 U Epithel Cells (Auto) 0-5 Urine Bacteria (Auto) Negative Amorphous Sediment Present A Urine Yeast Not Reportable Lyme Disease IgG Ab Positive A Lyme IgG (Western Blot) Lyme IgG 18 kDa Band Lyme IgG 23 kDa Band Lyme IgG 28 kDa Band Lyme IgG 30 kDa Band Lyme IgG 39 kDa Band Lyme IgG 41 kDa Band Lyme IgG 45 kDa Band Lyme IgG 58 kDa Band Lyme IgG 66 kDa Band Lyme IgG 93 kDa Band Lyme IgM Ab (WB) Lyme Disease IgM Ab Negative Lyme IgM 23 kDa Band Lyme IgM 39 kDa Band Lyme IgM 41 kDa Band Q Fever Phase I IgG Ab Q Fever Phase I IgM Ab Q Fever Phase II IgG Ab Q Fever Phase II IgM Ab Rickettsia IgG Ab Rickettsia IgM Ab Typhus Fever IgG Ab Typhus Fever IgM Ab 12/06/19 12/06/19 12/06/19 19:04 19:04 20:57 WBC RBC Hgb Hct MCV MCH MCHC RDW Std Deviation RDW Coeff of Hermes Plt Count MPV Immature Gran % (Auto) Neut % (Auto) Lymph % (Auto) [place] % (Auto) Eos % (Auto) Baso % (Auto) Neut # (Auto) Lymph # (Auto) [place] # (Auto) Eos # (Auto) Baso # (Auto) Immature Gran # (Auto) Peripher Smr Path Cons Haptoglobin Sodium Potassium Chloride Carbon Dioxide Anion Gap BUN Creatinine Est Cr Clr Drug Dosing Est GFR ( Amer) Est GFR (Non-Af Amer) BUN/Creatinine Ratio Glucose POC Glucose 126 H Calcium Lactate Dehydrogenase Urine Color Urine Appearance Urine pH POC Urine pH Ur Specific [place] Urine Protein POC Urine Protein Urine Glucose (UA) POC Ur Glucose (UA) Urine Ketones POC Urine Ketones Urine Blood POC Urine Blood Urine Nitrite POC Urine Nitrite Urine Bilirubin POC Urine Bilirubin Urine Urobilinogen POC Urine Urobilinogen Ur Leukocyte Esterase POC U Leukocyte Esteras Urine WBC (Auto) Urine RBC (Auto) U Hyaline Cast (Auto) U Epithel Cells (Auto) Urine Bacteria (Auto) Amorphous Sediment Urine Yeast Lyme Disease IgG Ab Lyme IgG (Western Blot) Pending Lyme IgG 18 kDa Band Pending Lyme IgG 23 kDa Band Pending Lyme IgG 28 kDa Band Pending Lyme IgG 30 kDa Band Pending Lyme IgG 39 kDa Band Pending Lyme IgG 41 kDa Band Pending Lyme IgG 45 kDa Band Pending Lyme IgG 58 kDa Band Pending Lyme IgG 66 kDa Band Pending Lyme IgG 93 kDa Band Pending Lyme IgM Ab (WB) Pending Lyme Disease IgM Ab Lyme IgM 23 kDa Band Pending Lyme IgM 39 kDa Band Pending Lyme IgM 41 kDa Band Pending Q Fever Phase I IgG Ab Pending Q Fever Phase I IgM Ab Pending Q Fever Phase II IgG Ab Pending Q Fever Phase II IgM Ab Pending [place] IgG Ab Pending [place] IgM Ab Pending Typhus Fever IgG Ab Pending Typhus Fever IgM Ab Pending 12/07/19 12/07/19 12/07/19 08:09 08:09 09:44 WBC 4.93 RBC 3.00 L Hgb 9.5 L Hct 28.1 L MCV 93.7 MCH 31.7 MCHC 33.8 RDW Std Deviation 43.6 RDW Coeff of Hermes 12.7 Plt Count 72 L MPV 11.4 H Immature Gran % (Auto) 0.2 Neut % (Auto) 59.8 Lymph % (Auto) 25.8 [place] % (Auto) 12.4 Eos % (Auto) 1.6 Baso % (Auto) 0.2 Neut # (Auto) 2.95 Lymph # (Auto) 1.27 [place] # (Auto) 0.61 H Eos # (Auto) 0.08 Baso # (Auto) 0.01 Immature Gran # (Auto) 0.01 Peripher Smr Path Cons Pending Cancelled Haptoglobin Sodium 136 Potassium 3.8 Chloride 109 H Carbon Dioxide 18 L Anion Gap 9.0 BUN 81 H Creatinine 4.29 H Est Cr Clr Drug Dosing 13.9 Est GFR ( Amer) 14.0 Est GFR (Non-Af Amer) 12.1 BUN/Creatinine Ratio 19.0 Glucose 108 H POC Glucose Calcium 8.6 Lactate Dehydrogenase Urine Color Urine Appearance Urine pH POC Urine pH Ur Specific [place] Urine Protein POC Urine Protein Urine Glucose (UA) POC Ur Glucose (UA) Urine Ketones POC Urine Ketones Urine Blood POC Urine Blood Urine Nitrite POC Urine Nitrite Urine Bilirubin POC Urine Bilirubin Urine Urobilinogen POC Urine Urobilinogen Ur Leukocyte Esterase POC U Leukocyte Esteras Urine WBC (Auto) Urine RBC (Auto) U Hyaline Cast (Auto) U Epithel Cells (Auto) Urine Bacteria (Auto) Amorphous Sediment Urine Yeast Lyme Disease IgG Ab Lyme IgG (Western Blot) Lyme IgG 18 kDa Band Lyme IgG 23 kDa Band Lyme IgG 28 kDa Band Lyme IgG 30 kDa Band Lyme IgG 39 kDa Band Lyme IgG 41 kDa Band Lyme IgG 45 kDa Band Lyme IgG 58 kDa Band Lyme IgG 66 kDa Band Lyme IgG 93 kDa Band Lyme IgM Ab (WB) Lyme Disease IgM Ab Lyme IgM 23 kDa Band Lyme IgM 39 kDa Band Lyme IgM 41 kDa Band Q Fever Phase I IgG Ab Q Fever Phase I IgM Ab Q Fever Phase II IgG Ab Q Fever Phase II IgM Ab Rickettsia IgG Ab Rickettsia IgM Ab Typhus Fever IgG Ab Typhus Fever IgM Ab 12/07/19 12/07/19 09:44 09:44 WBC RBC Hgb Hct MCV MCH MCHC RDW Std Deviation RDW Coeff of Hermes Plt Count MPV Immature Gran % (Auto) Neut % (Auto) Lymph % (Auto) [place] % (Auto) Eos % (Auto) Baso % (Auto) Neut # (Auto) Lymph # (Auto) [place] # (Auto) Eos # (Auto) Baso # (Auto) Immature Gran # (Auto) Peripher Smr Path Cons Haptoglobin Pending Sodium Potassium Chloride Carbon Dioxide Anion Gap BUN Creatinine Est Cr Clr Drug Dosing Est GFR ( Amer) Est GFR (Non-Af Amer) BUN/Creatinine Ratio Glucose POC Glucose Calcium Lactate Dehydrogenase 176 Urine Color Urine Appearance Urine pH POC Urine pH Ur Specific [place] Urine Protein POC Urine Protein Urine Glucose (UA) POC Ur Glucose (UA) Urine Ketones POC Urine Ketones Urine Blood POC Urine Blood Urine Nitrite POC Urine Nitrite Urine Bilirubin POC Urine Bilirubin Urine Urobilinogen POC Urine Urobilinogen Ur Leukocyte Esterase POC U Leukocyte Esteras Urine WBC (Auto) Urine RBC (Auto) U Hyaline Cast (Auto) U Epithel Cells (Auto) Urine Bacteria (Auto) Amorphous Sediment Urine Yeast Lyme Disease IgG Ab Lyme IgG (Western Blot) Lyme IgG 18 kDa Band Lyme IgG 23 kDa Band Lyme IgG 28 kDa Band Lyme IgG 30 kDa Band Lyme IgG 39 kDa Band Lyme IgG 41 kDa Band Lyme IgG 45 kDa Band Lyme IgG 58 kDa Band Lyme IgG 66 kDa Band Lyme IgG 93 kDa Band Lyme IgM Ab (WB) Lyme Disease IgM Ab Lyme IgM 23 kDa Band Lyme IgM 39 kDa Band Lyme IgM 41 kDa Band Q Fever Phase I IgG Ab Q Fever Phase I IgM Ab Q Fever Phase II IgG Ab Q Fever Phase II IgM Ab Rickettsia IgG Ab Rickettsia IgM Ab Typhus Fever IgG Ab Typhus Fever IgM Ab PG Care Time/CCT Total # of Minutes Spent Total Time Spent with Patient: Total time spent is greater than 50% in coordination of care (as documented) at patient's floor/unit and/or counseling patient: Coding Level of Care Code 43753 Initial Inpt Care Lvl 2 Diagnoses Hematuria R31.9
--- NOTE | 2019-12-07 12:14 | Nephrology Consultation ---
Date of Consultation December 07, 2019 Assessment & Plan (1) Acute kidney injury: Mr. Aguilar Admitted to the hospital with 2 weeks history of intermittent gross hematuria with history BPH, bilateral lateral multiple simple renal cyst, stage IV CKD with baseline creatinine 3-3.4 and chronic anemia. Hemoglobin was 9.5 and found to have AK with creatinine 4.5 and metabolic acidosis. He was also found to have petechial skin rash and thrombocytopenia. CT abdomen pelvis and renal ultrasound was negative for postrenal obstruction, has bilateral nephrolithiasis and concern for possible cyst rupture and bleeding. He has mature left radiocephalic AV fistula. Hematuria seems to have resolved. renal function staying relatively stable without further improvement in creatinine has metabolic acidosis, potassium normal. -- Monitor CBC and renal function, will iron study. -- start on sodium bicarbonate 650 mg twice a day -- dose medications for GFR less than 10 -- agree with holding diuretics for now as blood pressure well controlled, no sign of volume overload -- encourage p.o. intake, no need for IV fluid any more will follow Thank you for allowing me to participate in your patient's care. It was a pleasure to see Mr. Aguilar (2) Chronic kidney disease, stage 4 (severe): (3) Hypertension: (4) Hematuria: (5) Anemia: History of Present Illness Reason for Consultation: Acute kidney injury with advanced CKD metabolic acidosis, anemia and hematuria. Attending Physician: Heidy Davis MD History of Present Illness Mr. Aguilar Is a 79-year-old gentleman with past medical history significant for stage IV CKD, hypertension, BPH admitted to the hospital with the hematuria. Nephrology consult was requested to manage acute kidney injury with history of advanced CKD. Electronic medical records including labs and imaging are reviewed in detail during patient's visit. Mr. Aguilar presented to the hospital with 2 weeks history of intermittent gross hematuria. he also reports decrease p.o. intake with poor appetite for last few weeks and specially over the weekend he felt exhausted and "drained" with low energy. hematuria seems to have mostly resolved now. On admission hemoglobin was 9.4 with underlying anemia with advanced CKD baseline hemoglobin around 10- 11. was also found to have thrombocytopenia with platelet around 70s. Lab showed AK with creatinine around 4.5 with baseline creatinine 3.0-3.4. found to have metabolic acidosis, bicarbonate has been 18-19, potassium normal. CT abdomen pelvis and renal ultrasound showed no postrenal obstruction, found to have bilateral nonobstructing renal calculi. Has multiple simple cyst and concern for possible cyst rupture and bleeding. no renal or bladder mass noted. Has stage IV CKD baseline creatinine 3-3.4, thought to be secondary to microvascular disease and age-related nephron loss, follows with Dr. Wilcox. Never had biopsy because of bilateral multiple simple cyst. Has mature right radiocephalic AV fistula. Has history of microscopic hematuria for many years, previous workup unremarkable, has low-grade proteinuria. Blood pressure has been well controlled On amlodipine 5 mg and Lasix 20 mg daily.. History of gout, has been on allopurinol. Has history of BPH has been following with Urology for several years. Also noticed some petechial rash since admission yesterday in his back and leg. Prior history of take bone disease 2 years ago. Currently denies any shortness of breath or chest pain. Did not have any fever or chills. Allergies Allergy/AdvReac Type Severity Reaction Status Date / Time Sulfa (Sulfonamide Allergy Unknown "DON'T Verified 12/06/19 10:36 Antibiotics) REMEMBER, IT WAS SO LONG AGO" Home Medications Home Medications Medication Instructions Recorded Confirmed Type aspirin 81 mg PO QAM 05/06/18 12/06/19 History melatonin 10 mg capsule 10 mg PO HS PRN 11/02/18 12/06/19 History allopurinol 100 mg tablet 100 mg PO QAM #90 tab 01/18/19 12/06/19 Rx amlodipine 5 mg tablet 5 mg PO QAM #90 tab 04/23/19 12/06/19 Rx cholecalciferol (vitamin D3) 50 50 mcg PO DAILY 07/02/19 12/06/19 History mcg (2,000 unit) tablet tadalafil 5 mg tablet 5 mg PO DAILY PRN #20 tab 08/11/19 12/06/19 Rx atorvastatin 80 mg tablet 80 mg PO HS #90 tab 09/06/19 12/06/19 Rx furosemide 40 mg tablet 20 mg PO DAILY PRN #30 tab 11/09/19 12/06/19 Rx Patient History Medical History Chronic kidney disease, stage 4 (severe) FOLLOWS W/ DR. WILCOX GERD (gastroesophageal reflux disease) Hearing deficit BL AVINA Hyperlipidemia Hypertension Vitamin D deficiency Surgical History H/O tooth extraction History of cardiac cath 7 YEARS AGO - - HOSPITAL IN [place] - 2 STENTS PLACED - FOLLOWS W/ DR. ALFARO 6 YEARS AGO - REASON? - [facility] - NO STENTS/ANGIOPLASTY History of cataract surgery bilateral History of colonoscopy W/ POLYPECTOMY History of heart artery stent History of tonsillectomy Status post creation of arteriovenous fistula (~04/2017) Left wrist; Simoni Family History Other Alzheimer disease Breast cancer Congestive heart failure Prostate cancer Social History Smoking Status: Former smoker Cigarettes Per Day: 1 pack every other day; Second Hand Exposure: No; Hx Alcohol Use: Yes Hx Substance Use: No Preferred Language: Gabonese Communication Ability: Effective Security Field Supervisor Required: No Beliefs That Will Affect Care: None Current Living Situation: Spouse Feels Safe at Home: Yes Assistive Devices: Glasses Review of Systems Review of Systems: All systems reviewed & are unremarkable except as noted in HPI & below Physical Exam Constitutional: WD/WN, vitals as above + ill appearing; no acute distress Eyes: PERRL, conjunctivae normal, anicteric sclerae ENMT: external ear and nose normal, oropharynx normal Ears: no hearing impairment Neck: trachea midline Respiratory: normal respiratory effort, lungs clear to auscultation no cough Auscultation: no crackles, no rales and no wheezes Cardiovascular: RRR, no murmur, no edema Gastrointestinal (Abdomen): normal bowel sounds, soft, nontender, no hepatosplenomegaly Percussion/Palpation: abdomen nontender, no guarding and abdomen not rigid Musculoskeletal: Extremities: extremities normal to inspection Gait: normal gait Skin: no rashes, warm and dry + rash Neurologic: moves all extremities and awake Psychiatric: A+Ox3, euthymic affect Results & Data ([facility]) Vital Signs (Past 12 Hours) Vital Signs Temp Pulse Resp BP Pulse Ox 12/07/19 07:14 36.9 C 62 18 126/63 97 12/07/19 00:08 37.5 C 69 20 133/64 96 PG Care Time/CCT Total # of Minutes Spent Total Time Spent with Patient: Total time spent is greater than 50% in coordination of care (as documented) at patient's floor/unit and/or counseling patient: Coding Level of Care Code 47766 Inpt Consult Level 5 Diagnoses Acute kidney injury N17.9 Chronic kidney disease, stage 4 (severe) N18.4 Hypertension I10 Hypertension type: unspecified Hematuria R31.9 Anemia N18.4; D63.1 Anemia type: due to chronic kidney disease Chronic kidney disease stage: stage 4 (severe) (1) Hypertension Hypertension type: unspecified Qualified Code(s): I10 - Essential (primary) hypertension (2) Anemia Anemia type: due to chronic kidney disease Chronic kidney disease stage: stage 4 (severe) Qualified Code(s): N18.4 - Chronic kidney disease, stage 4 (severe); D63.1 - Anemia in chronic kidney disease
[2019-12-07] MEDS: SODIUM BICARBONATE 650 MG TAB PO SCH (20:29)
[2019-12-07] MEDS: ATORVASTATIN 40 MG TAB PO SCH (20:29)
[2019-12-08] MEDS: DOXYCYCLINE HYCLATE 100 MG in DEXTROSE 5% 100 ML IV SCH ×2 (06:00→18:23)
[2019-12-08 06:09] LABS: Hematocrit (blood only) 29.4 % (42-52); Hemoglobin 9.7 g/dL (14.0-18.0); Mean Corpuscular Hemoglobin 30.9 pg (25-34); Mean Corpuscular Volume 93.6 fL (80-100); RDW Coefficient of Variation 12.7 % (11.5-14.5); RDW Standard Deviation 43.5 fL (36.4-46.3); Red Blood Count 3.14 M/uL (4.7-6.1); White Blood Count 5.31 K/uL (4.8-10.8)
[2019-12-08 06:12] LABS: Mean Platelet Volume 11.8 fL (7.4-10.4); Platelet Count 76 K/uL (130-400)
[2019-12-08 06:34] LABS: Albumin Level 2.6 gm/dl (3.4-5.0); BUN Creatinine Ratio 19.3 (10-20); Calcium 8.2 mg/dl (8.5-10.1); Creatinine Clr Calc Pharmacy 13.4 ml/min; Est GFR (African American) 13.3; Est GFR (Non-African American) 11.5; Potassium 3.7 mmol/L (3.5-5.1)
[2019-12-08 06:35] LABS: Phosphorus 4.6 mg/dl (2.5-4.9)
--- NOTE | 2019-12-08 09:15 | Urology Progress Note ---
Date of Service December 08, 2019 Assessment & Plan (1) Hematuria: 79yo M admitted with weakness and hematuria -Remains afebrile -Urine has cleared -Urine culture is pending, preliminary no growth -No acute intervention planned at this time -Will plan for outpatient follow-up with urology service for cystoscopy for further evaluation of gross hematuria, patient in agreement. -Thank you for allowing us to participate in the acute care of Mr. Aguilar. Please reconsult us with additional questions, concerns or changes in patient status. Admission and Anticipated Discharge Date Admission Date: December 06, 2019 Subjective Patient examined at bedside this AM Awake, resting in bed on arrival Denies fevers or chills Tolerating diet, no nausea or vomiting Denies gross hematuria/dysuria Feels he is emptying well Denies any pain or discomfort at this time Offers no additional complaints today Chart Review: Afebrile WBC 5.31 Cr 4.48 Hgb 9.7 Urine culture-pending Lyme, RMSF, rickettsial panel pending- On IV Doxy Review of Systems Constitutional: as per Subjective / HPI Gastrointestinal: as per Subjective / HPI Genitourinary: + as per Subjective / HPI Physical Exam Constitutional: comfortable; no acute distress Respiratory: normal respiratory effort and able to speak in complete sentences Gastrointestinal (Abdomen): Inspection/Auscultation: abdomen normal to inspection; abdomen not distended Skin: Warm and dry Neurologic: awake; not confused Psychiatric: Orientation: alert and oriented x 3 Results & Data ([facility]) Vital Signs (Past 12 Hours) Vital Signs Temp Pulse Resp BP Pulse Ox 12/08/19 07:31 36.7 C 62 18 120/55 L 98 12/08/19 00:21 36.6 C 60 14 106/67 92 PG Care Time/CCT Total # of Minutes Spent Total Time Spent with Patient: Total time spent is greater than 50% in coordination of care (as documented) at patient's floor/unit and/or counseling patient: Coding Level of Care Code 65458 Subseq Hosp Care Lvl 2 Diagnoses Hematuria R31.9
[2019-12-08] MEDS: SODIUM CHLORIDE 0.9% 500 ML IV SCH ×2 (09:31→15:43)
[2019-12-08] MEDS: SODIUM BICARBONATE 650 MG TAB PO SCH ×2 (09:31→21:28)
[2019-12-08] MEDS: amLODIPine BESYLATE 5 MG TAB PO SCH (09:31)
[2019-12-08] MEDS: CHOLECALCIFEROL 1,000 UNITS 25 MCG TAB PO SCH (09:31)
[2019-12-08] MEDS: allopurinoL 100 MG TAB PO SCH (09:31)
--- NOTE | 2019-12-08 11:37 | Nephrology Progress Note ---
Date of Service December 08, 2019 Assessment & Plan (1) Acute kidney injury: Mr. Aguilar Admitted to the hospital with 2 weeks history of intermittent gross hematuria with history BPH, bilateral lateral multiple simple renal cyst, stage IV CKD with baseline creatinine 3-3.4 and chronic anemia. Hemoglobin was 9.5 and found to have AK with creatinine 4.5 and metabolic acidosis. He was also found to have petechial skin rash and thrombocytopenia. CT abdomen pelvis and renal ultrasound was negative for postrenal obstruction, has bilateral nephrolithiasis and concern for possible cyst rupture and bleeding. He has mature left radiocephalic AV fistula. Renal function staying relatively stable without further improvement in creatinine has metabolic acidosis, potassium normal. platelet has been low but stable. Hemoglobin stable. Hematuria seems to have resolved. waiting for serology for Lyme and other tick-borne illness -- discontinue IV fluid as p.o. intake has been better -- continue on sodium bicarbonate 650 mg twice a day -- dose medications for GFR less than 10 -- if renal function stays relatively stable, electrolyte acceptable and otherwise clinically ready to be discharged okay to be discharged in next 1-2 days with close outpatient Nephrology follow-up will follow (2) Chronic kidney disease, stage 4 (severe): (3) Hypertension: (4) Hematuria: (5) Anemia: Admission and Anticipated Discharge Date Admission Date: December 06, 2019 Subjective Mr. Aguilar was seen and examined in his room with his at bedside. Overall feeling well, denies any specific symptoms however had many questions regarding his clinical course. blood pressure has been stable, decent urine output. Renal function staying relatively stable without any notable improvement. hemoglobin stable. Review of Systems Review of Systems: All systems reviewed & are unremarkable except as noted in HPI & below Physical Exam Constitutional: well developed and well nourished; no acute distress Respiratory: normal respiratory effort, lungs clear to auscultation Cardiovascular: RRR, no murmur, no edema Skin: Petechial rash Neurologic: moves all extremities and awake; not confused Psychiatric: A+Ox3, euthymic affect Results & Data ([facility]) Vital Signs (Past 12 Hours) Vital Signs Temp Pulse Resp BP Pulse Ox 12/08/19 07:31 36.7 C 62 18 120/55 L 98 12/08/19 00:21 36.6 C 60 14 106/67 92 PG Care Time/CCT Total # of Minutes Spent Total Time Spent with Patient: Total time spent is greater than 50% in coordination of care (as documented) at patient's floor/unit and/or counseling patient: Coding Level of Care Code 03418 Subseq Hosp Care Lvl 3 Diagnoses Acute kidney injury N17.9 Chronic kidney disease, stage 4 (severe) N18.4 Hypertension I10 Hypertension type: unspecified Hematuria R31.9 Anemia N18.4; D63.1 Anemia type: due to chronic kidney disease Chronic kidney disease stage: stage 4 (severe) (1) Hypertension Hypertension type: unspecified Qualified Code(s): I10 - Essential (primary) hypertension (2) Anemia Anemia type: due to chronic kidney disease Chronic kidney disease stage: stage 4 (severe) Qualified Code(s): N18.4 - Chronic kidney disease, stage 4 ( severe); D63.1 - Anemia in chronic kidney disease
[2019-12-08 15:21] LABS: 18KDIGG Band REACTIVE; 23KDIGG Band NON-REACTIVE; 23KDIGM Band REACTIVE; 28KDIGG Band NON-REACTIVE; 30KDIGG Band NON-REACTIVE; 39KDIGG Band NON-REACTIVE; 39KDIGM Band NON-REACTIVE; 41KDIGG Band REACTIVE; 41KDIGM Band NON-REACTIVE; 45KDIGG Band NON-REACTIVE; 58KDIGG Band NON-REACTIVE; 66KDIGG Band NON-REACTIVE; 93KDIGG Band NON-REACTIVE; Lyme Antibodies, WB IgG NEGATIVE (NEGATIVE); Lyme Antibodies, WB IgM NEGATIVE (NEGATIVE)
--- NOTE | 2019-12-08 15:36 | Hospitalist Progress Note ---
Date of Service December 08, 2019 Assessment & Plan (1) Acute renal failure: JIN on CKD 4 likely dehydrated due to poor PO intake and continuing to take lasix will hydrate overnight with NS 80ml/hr, Hold lasix baseline Cr 2.6 - 3.5, up to 4.47 (12-05) renal ultrasound and CT a/p -- kidneys not obstructed appreciate nephrology consult -- they started sodium bicarb tabs (2) Anemia: normocytic likely related to underlying renal failure no schistocytes on peripheral smear (3) Thrombocytopenia: new since 05-30 unknown etiology smear confirms decreased platelets checking for tickborne illnesses, ruled out TTP continue to monitor (4) Hematuria: chronic Appreciate urology consultation -- patient will have outpatient cystoscopy Per renal note (06-29) extensive urology evaluation in the past for microscopic hematuria, no definite malignancy, so hematuria thought 2' to renal cysts Holding aspirin Hb 10.3 on admission, baseline is 11.3-12.5 Monitor (5) Rash: Hx of tick bites, including recently 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 as noted yesterday Anthony, RMSF, rickettsial panel pending Start doxy given JIN Could also explain thrombocytopenia LFTs WNL (6) Hypertension: norvasc 5mg PO daily (7) Chronic kidney disease, stage 4 (severe): thought to be related to microvascular disease, hypertensive nephrosclerosis previous IgA, ESR, KVNG/ANCA, complement, hepatitis serology WNL per renal notes Fistula placed 2017, no hx of HD Baseline cr 2.9-3.2 (8) Hyperlipidemia: continue home meds (9) BPH w/o urinary obs/LUTS: No current medications (10) DVT prophylaxis: holding lovenox in setting of hematuria -- start SCDs regular diet CODE full Admission and Anticipated Discharge Date Admission Date: December 06, 2019 Subjective Patient is eager to go home. States urine is no longer bloody or red. Feels back to normal. Eating and drinking well. Ambulating without assistance. Knows his creatinine is above baseline and likely related to dehydration. Denies cough, sob, chest pain, abd pain, n/v/d. Review of Systems Constitutional: no fever, no chills, no fatigue, no weakness, no anorexia, no weight loss and no weight gain Ear, Nose, Mouth, Throat: no nasal congestion, no sore throat and no dysphagia Respiratory: no cough and no dyspnea Cardiovascular: no chest pain, no dyspnea on exertion, no orthopnea and no palpitations Gastrointestinal: no abdominal pain, no nausea, no vomiting, no hematemesis, no dysphagia, no constipation, no diarrhea/loose stools, no blood in stools and no melena Musculoskeletal: no back pain, no joint pain, no myalgia and no muscle weakness Integumentary: no rash, no lesions, no skin ulcer, no erythema, no dry skin and no pruritus Neurologic: no falls, no localized weakness, no generalized weakness, no numbness, no paresthesia, no tremor(s) and no headache(s) Psychiatric: no depression, no suicidal ideation, no homicidal ideation and no anxiety Endocrine: no cold intolerance and no heat intolerance Hematologic / Lymphatic: no easy bleeding and no easy bruising Physical Exam Constitutional: well developed and well nourished; no acute distress Eyes: PERRL, conjunctivae normal, anicteric sclerae ENMT: Mouth: + dry oral mucous membranes Respiratory: normal respiratory effort; no respiratory distress and no labored breathing Auscultation: lungs clear to auscultation bilaterally; no crackles, no rales, no rhonchi and no wheezes Cardiovascular: Rate/Rhythm: regular rate and regular rhythm Heart Sounds: no murmur and no cardiac rub Vessels: normal peripheral pulses and radial pulses present; no JVD Extremities: no edema Gastrointestinal (Abdomen): Inspection/Auscultation: abdomen normal to inspection and normal bowel sounds; abdomen not distended Percussion/Palpation: abdomen soft; abdomen nontender, no guarding, abdomen not rigid and no hepatosplenomegaly Musculoskeletal: Head/Neck/Chest: normocephalic and head atraumatic Spine: no cervical spinal tenderness, no cervical muscular tenderness, no thoracic spinal tenderness and no lumbar spinal tenderness Skin: no rashes, warm and dry Neurologic: CN's II-XI intact bilaterally and moves all extremities Motor/Sensory: no tremor and no sensory deficit Psychiatric: Orientation: alert, oriented to person, oriented to place and oriented to time Apperance: appropriately groomed; not disheveled Affect: euthymic affect; no anxious affect and no tearful affect Results & Data Results & Data ([facility]) Vital Signs (Past 12 Hours) Vital Signs Temp Pulse Resp BP Pulse Ox 12/08/19 15:30 37.0 C 69 18 117/56 L 95 12/08/19 07:31 36.7 C 62 18 120/55 L 98 Medications Administered Current Inpatient Medications Acetaminophen (Acetaminophen 325 Mg Tab) 650 mg PO Q4H PRN PRN Reason: pain/fever Stop: 01/05/20 18:45 Allopurinol (Allopurinol 100 Mg Tab) 100 mg PO QAM BRIANA Stop: 01/06/20 08:59 Last Admin: 12/08/19 09:31 Dose: 100 mg Documented by: Amlodipine Besylate (Amlodipine Besylate 5 Mg Tab) 5 mg PO QAM BRIANA Stop: 01/06/20 08:59 Last Admin: 12/08/19 09:31 Dose: 5 mg Documented by: Atorvastatin Calcium (Atorvastatin 40 Mg Tab) 80 mg PO HS BRIANA Stop: 01/05/20 20:59 Last Admin: 12/07/19 20:29 Dose: 80 mg Documented by: Furosemide (Furosemide 20 Mg Tab) 20 mg PO DAILY PRN PRN Reason: edema Stop: 01/05/20 18:45 Last Admin: 12/07/19 07:45 Dose: 20 mg Documented by: Doxycycline Hyclate 100 mg/ (Dextrose) 110 mls @ 50 mls/hr IV Q12H BRIANA Stop: 12/16/19 18:59 Last Infusion: 12/08/19 09:31 Dose: Infused Documented by: Sodium Chloride (Nss 1000ml) 1,000 mls @ 80 mls/hr IV .[id number] BRIANA Stop: 01/07/20 15:14 Magnesium Hydroxide (Magnesium Hydroxide Susp 30 Ml Udc) 30 ml PO Q6H PRN PRN Reason: Constipation Stop: 01/05/20 18:45 Melatonin (Melatonin 3 Mg Tab) 9 mg PO HS PRN PRN Reason: Sleep Stop: 01/05/20 18:59 Last Admin: 12/06/19 21:30 Dose: 9 mg Documented by: Ondansetron HCl (Ondansetron Inj 2 Mg/Ml 2 Ml Vial) 4 mg IV Q6H PRN PRN Reason: Nausea Stop: 01/05/20 18:45 Sodium Bicarbonate (Sodium Bicarbonate 650 Mg Tab) 650 mg PO BID BRIANA Stop: 01/06/20 20:59 Last Admin: 12/08/19 09:31 Dose: 650 mg Documented by: Vitamin D (Cholecalciferol 1,000 Units 25 Mcg Tab) 2,000 units PO DAILY BRIANA Stop: 01/06/20 08:59 Last Admin: 12/08/19 09:31 Dose: 2,000 units Documented by: PG Care Time/CCT Total # of Minutes Spent Total Time Spent with Patient: Total time spent is greater than 50% in coordination of care (as documented) at patient's floor/unit and/or counseling patient: Coding Level of Care Code 32807 Subseq Hosp Care Lvl 3 Diagnoses Acute renal failure N17.9 Acute renal failure type: unspecified Anemia N18.4; D63.1 Anemia type: due to chronic kidney disease Chronic kidney disease stage: stage 4 (severe) Thrombocytopenia D69.6 Hematuria R31.0 Hematuria type: gross Rash R21 Hypertension I10 Hypertension type: unspecified Chronic kidney disease, stage 4 (severe) N18.4 Hyperlipidemia E78.5 Hyperlipidemia type: unspecified BPH w/o urinary obs/LUTS N40.0 DVT prophylaxis Z29.9 (1) Acute renal failure Acute renal failure type: unspecified Qualified Code(s): N17.9 - Acute kidney failure, unspecified (2) Anemia Anemia type: due to chronic kidney disease Chronic kidney disease stage: stage 4 (severe) Qualified Code(s): N18.4 - Chronic kidney disease, stage 4 (severe); D63.1 - Anemia in chronic kidney disease (3) Hematuria Hematuria type: gross Qualified Code(s): R31.0 - Gross hematuria (4) Hypertension Hypertension type: unspecified Qualified Code(s): I10 - Essential (primary) hypertension (5) Hyperlipidemia Hyperlipidemia type: unspecified Qualified Code(s): E78.5 - Hyperlipidemia, unspecified
[2019-12-08] MEDS: SODIUM CHLORIDE 0.9% 1000ML 1,000 ML IV SCH (15:56)
[2019-12-08 19:39] LABS: Creatinine Urine Random 82.6 mg/dl
[2019-12-08] MEDS: ATORVASTATIN 40 MG TAB PO SCH (21:28)
[2019-12-09] MEDS: SODIUM CHLORIDE 0.9% 1000ML 1,000 ML IV SCH ×2 (03:15→16:24)
[2019-12-09] MEDS: DOXYCYCLINE HYCLATE 100 MG in DEXTROSE 5% 100 ML IV SCH ×2 (06:39→20:21)
[2019-12-09 06:56] LABS: Hematocrit (blood only) 27.8 % (42-52); Hemoglobin 9.5 g/dL (14.0-18.0); Mean Corpuscular Hemoglobin 31.6 pg (25-34); Mean Corpuscular Hgb Conc 34.2 g/dL (32-36); Mean Corpuscular Volume 92.4 fL (80-100); RDW Coefficient of Variation 12.7 % (11.5-14.5); RDW Standard Deviation 43.2 fL (36.4-46.3); Red Blood Count 3.01 M/uL (4.7-6.1); White Blood Count 5.69 K/uL (4.8-10.8)
[2019-12-09 07:29] LABS: Albumin Level 2.5 gm/dl (3.4-5.0); BUN Creatinine Ratio 20.6 (10-20); Creatinine Clr Calc Pharmacy 13.6 ml/min; Est GFR (African American) 13.6; Est GFR (Non-African American) 11.7; Potassium 3.7 mmol/L (3.5-5.1)
[2019-12-09 07:32] LABS: Albumin Globulin Ratio 0.7 (0.9-2); Bilirubin,Total 0.4 mg/dl (0.2-1); Ferritin 223.7 ng/ml (8-388); Globulin 3.8 gm/dl (2.5-4.0); Mean Platelet Volume 11.5 fL (7.4-10.4); Phosphorus 4.4 mg/dl (2.5-4.9); Platelet Count 83 K/uL (130-400); Total Protein 6.3 gm/dl (6.4-8.2)
--- NOTE | 2019-12-09 07:51 | Hospitalist Progress Note ---
Date of Service December 09, 2019 Assessment & Plan (1) Acute renal failure: JIN on CKD 4 baseline Cr 2.6 - 3.5 likely dehydrated due to poor PO intake and taking lasix FE Urea 31% consistent with pre renal disease Cr 4.4 today, minimal improvement with hydration overnight checking post-void residual renal ultrasound and CT a/p -- kidneys not obstructed appreciate nephrology consult -- started sodium bicarb tabs (2) Lyme disease: IgG antibody indicates prior infection, however Lyme IgM 23kDa band reactive -- uncertain significance. ID recommended doxy for total of 14 days -- does not need to be IV (3) Anaplasmosis: Hx of anaplasmosis -- repeat DNA test sent today already on doxy (4) Anemia: normocytic Hb 10.3 on admission, baseline is 11.3-12.5 likely related to underlying renal failure no schistocytes on peripheral smear renal is starting venofer 200mg IV daily (5) Thrombocytopenia: new since 05-30 smear confirms decreased platelets ruled out TTP Awaiting ehrlichia serology, rickettsia IgM, typhus IgG and IgM, Q fever IgG and IgM and repeat anaplasma DNA continue to monitor (6) Hematuria: chronic Per renal note (06-29) extensive urology evaluation in the past for microscopic hematuria, no definite malignancy, so hematuria thought 2' to renal cysts Holding aspirin Appreciate urology consultation -- patient will have outpatient cystoscopy (7) Rash: Hx of tick bites, including recently 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 as noted yesterday Lyme, RMSF, rickettsial panel,ehrlichiosis pending start steroid cream (8) Hypertension: norvasc 5mg PO daily (9) Chronic kidney disease, stage 4 (severe): thought to be related to microvascular disease, hypertensive nephrosclerosis previous IgA, ESR, KVNG/ANCA, complement, hepatitis serology WNL per renal notes Fistula placed 2017, no hx of HD Baseline cr 2.9-3.2 (10) Hyperlipidemia: continue home meds (11) BPH w/o urinary obs/LUTS: No current medications (12) DVT prophylaxis: holding lovenox in setting of hematuria -- start SCDs regular diet CODE full Admission and Anticipated Discharge Date Admission Date: December 06, 2019 Subjective Patient eager to go home. Feels well. Received IV fluids overnight and making plenty of urine. No hematuria. Urine is clear and yellow. Had ID consult today -- aware of recommendation to continue doxycycline. Also, renal saw patient today. Patient asking to leave as soon as possible, but understands need to stay in hospital until kidney function recovers. Denies nausea, vomi ting, sob, cough, sob. No complaints. Eating well. Ambulating without difficulty. Review of Systems Constitutional: no fever, no chills, no fatigue, no weakness, no anorexia, no weight loss and no weight gain Ear, Nose, Mouth, Throat: no nasal congestion, no sore throat and no dysphagia Respiratory: no cough and no dyspnea Cardiovascular: no chest pain, no dyspnea on exertion, no orthopnea and no palpitations Gastrointestinal: no abdominal pain, no nausea, no vomiting, no hematemesis, no dysphagia, no constipation, no diarrhea/loose stools, no blood in stools and no melena Genitourinary: no difficulty urinating and no hematuria Musculoskeletal: no back pain, no joint pain, no myalgia and no muscle weakness Integumentary: no rash, no lesions, no skin ulcer, no erythema, no dry skin and no pruritus Neurologic: no falls, no localized weakness, no generalized weakness, no numbness, no paresthesia, no tremor(s) and no headache(s) Psychiatric: no depression, no suicidal ideation, no homicidal ideation and no anxiety Endocrine: no cold intolerance and no heat intolerance Hematologic / Lymphatic: no easy bleeding and no easy bruising Physical Exam Constitutional: well developed and well nourished; no acute distress Eyes: PERRL, conjunctivae normal, anicteric sclerae ENMT: Mouth: + dry oral mucous membranes Respiratory: normal respiratory effort; no respiratory distress and no labored breathing Auscultation: lungs clear to auscultation bilaterally; no crackles, no rales, no rhonchi and no wheezes Cardiovascular: Rate/Rhythm: regular rate and regular rhythm Heart Sounds: no murmur and no cardiac rub Vessels: normal peripheral pulses and radial pulses present; no JVD Extremities: no edema Gastrointestinal (Abdomen): Inspection/Auscultation: abdomen normal to inspection and normal bowel sounds; abdomen not distended Percussion/Palpation: abdomen soft; abdomen nontender, no guarding, abdomen not rigid and no hepatosplenomegaly Musculoskeletal: Head/Neck/Chest: normocephalic and head atraumatic Spine: no cervical spinal tenderness, no cervical muscular tenderness, no thoracic spinal tenderness and no lumbar spinal tenderness Skin: no rashes, warm and dry Neurologic: CN's II-XI intact bilaterally and moves all extremities Motor/Sensory: no tremor and no sensory deficit Psychiatric: Orientation: alert, oriented to person, oriented to place and oriented to time Apperance: appropriately groomed; not disheveled Affect: euthymic affect; no anxious affect and no tearful affect Results & Data Results & Data ([facility]) Vital Signs (Past 12 Hours) Vital Signs Temp Pulse Resp BP BP Pulse Ox 12/09/19 07:29 36.8 C 64 18 128/74 96 12/09/19 00:35 37.1 C 12/08/19 23:35 37.6 C H 79 18 121/67 95 Laboratory Results Abnormal lab results 12/06/19 12/09/19 12/09/19 Range/Units 19:04 06:24 06:24 RBC 3.01 L (4.7-6.1) M/uL Hgb 9.5 L (14.0-18.0) g/dL Hct 27.8 L (42-52) % Plt Count 83 L (130-400) K/uL MPV 11.5 H (7.4-10.4) fL Chloride 113 H (98-107) mmol/L Carbon Dioxide 17 L (21-32) mmol/L BUN 91 H (7-18) mg/dl Creatinine 4.40 H (0.6-1.4) mg/dl BUN/Creatinine Ratio 20.6 H (10-20) Glucose 104 H (70-99) mg/dl Calcium 8.0 L (8.5-10.1) mg/dl Iron 12 L (35-175) mcg/dl Transferrin 150 L (200-360) mg/dl Transferrin % Sat 6 L (20-50) % Total Protein 6.3 L (6.4-8.2) gm/dl Albumin 2.5 L (3.4-5.0) gm/dl Albumin/Globulin Ratio 0.7 L (0.9-2) Lyme IgG 18 kDa Band REACTIVE A Lyme IgG 41 kDa Band REACTIVE A Lyme IgM 23 kDa Band REACTIVE A Diagnostic Findings Fe sodium 1.2% (intrinsic renal failure) Fe urea 31.1% (pre-renal) Medications Administered Current Inpatient Medications Acetaminophen (Acetaminophen 325 Mg Tab) 650 mg PO Q4H PRN PRN Reason: pain/fever Stop: 01/05/20 18:45 Allopurinol (Allopurinol 100 Mg Tab) 100 mg PO QAM [facility] Stop: 01/06/20 08:59 Last Admin: 12/08/19 09:31 Dose: 100 mg Documented by: Amlodipine Besylate (Amlodipine Besylate 5 Mg Tab) 5 mg PO QAM [facility] Stop: 01/06/20 08:59 Last Admin: 12/08/19 09:31 Dose: 5 mg Documented by: Atorvastatin Calcium (Atorvastatin 40 Mg Tab) 80 mg PO HS BRIANA Stop: 01/05/20 20:59 Last Admin: 12/08/19 21:28 Dose: 80 mg Documented by: Doxycycline Hyclate 100 mg/ (Dextrose) 110 mls @ 50 mls/hr IV Q12H BRIANA Stop: 12/16/19 18:59 Last Admin: 12/09/19 06:39 Dose: 50 mls/hr Documented by: Sodium Chloride (Nss 1000ml) 1,000 mls @ 80 mls/hr IV .[id number] [facility] Stop: 01/07/20 15:14 Last Admin: 12/09/19 03:15 Dose: 80 mls/hr Documented by: Magnesium Hydroxide (Magnesium Hydroxide Susp 30 Ml Udc) 30 ml PO Q6H PRN PRN Reason: Constipation Stop: 01/05/20 18:45 Melatonin (Melatonin 3 Mg Tab) 9 mg PO HS PRN PRN Reason: Sleep Stop: 01/05/20 18:59 Last Admin: 12/06/19 21:30 Dose: 9 mg Documented by: Ondansetron HCl (Ondansetron Inj 2 Mg/Ml 2 Ml Vial) 4 mg IV Q6H PRN PRN Reason: Nausea Stop: 01/05/20 18:45 Sodium Bicarbonate (Sodium Bicarbonate 650 Mg Tab) 650 mg PO BID [facility] Stop: 01/06/20 20:59 Last Admin: 12/08/19 21:28 Dose: 650 mg Documented by: Vitamin D (Cholecalciferol 1,000 Units 25 Mcg Tab) 2,000 units PO DAILY BRIANA Stop: 01/06/20 08:59 Last Admin: 12/08/19 09:31 Dose: 2,000 units Documented by: PG Care Time/CCT Total # of Minutes Spent Total Time Spent with Patient: Total time spent is greater than 50% in coordination of care (as documented) at patient's floor/unit and/or counseling patient: Coding Level of Care Code 03943 Subseq Hosp Care Lvl 3 Diagnoses Acute renal failure N17.9 Acute renal failure type: unspecified Lyme disease A69.20 Anaplasmosis A77.49 Anemia N18.4; D63.1 Anemia type: due to chronic kidney disease Chronic kidney disease stage: stage 4 (severe) Thrombocytopenia D69.6 Hematuria R31.0 Hematuria type: gross Rash R21 Hypertension I10 Hypertension type: unspecified Chronic kidney disease, stage 4 (severe) N18.4 Hyperlipidemia E78.5 Hyperlipidemia type: unspecified BPH w/o urinary obs/LUTS N40.0 DVT prophylaxis Z29.9 (1) Hematuria Hematuria type: gross Qualified Code(s): R31.0 - Gross hematuria (2) Acute renal failure Acute renal failure type: unspecified Qualified Code(s): N17.9 - Acute kidney failure, unspecified (3) Anemia Anemia type: due to chronic kidney disease Chronic kidney disease stage: stage 4 (severe) Qualified Code(s): N18.4 - Chronic kidney disease, stage 4 (severe); D63.1 - Anemia in chronic kidney disease (4) Hyperlipidemia Hyperlipidemia type: unspecified Qualified Code(s): E78.5 - Hyperlipidemia, unspecified (5) Hypertension Hypertension type: unspecified Qualified Code(s): I10 - Essential (primary) hypertension
[2019-12-09] MEDS: SODIUM BICARBONATE 650 MG TAB PO SCH ×2 (09:23→20:21)
[2019-12-09] MEDS: IRON SUCROSE 200 MG in 0.9 % SODIUM CHLORIDE 100 ML IV SCH (09:23)
[2019-12-09] MEDS: CHOLECALCIFEROL 1,000 UNITS 25 MCG TAB PO SCH (09:24)
[2019-12-09] MEDS: amLODIPine BESYLATE 5 MG TAB PO SCH (09:24)
[2019-12-09] MEDS: allopurinoL 100 MG TAB PO SCH (09:24)
--- NOTE | 2019-12-09 10:47 | Nephrology Progress Note ---
Date of Service December 09, 2019 Assessment & Plan (1) Acute kidney injury: Mr. Aguilar Admitted to the hospital with 2 weeks history of intermittent gross hematuria with history BPH, bilateral lateral multiple simple renal cyst, stage IV CKD with baseline creatinine 3-3.4 and chronic anemia. Hemoglobin was 9.5 and found to have AK with creatinine 4.5 and metabolic acidosis. He was also found to have petechial skin rash and thrombocytopenia. CT abdomen pelvis and renal ultrasound was negative for postrenal obstruction, has bilateral nephrolithiasis and concern for possible cyst rupture and bleeding. He has mature left radiocephalic AV fistula. No improvement in renal function yet although potassium still remained normal, has metabolic acidosis. Hemoglobin relatively stable with iron deficiency. No respiratory distress. -- Start on Venofer 200 mg IV daily -- okay to continue on IV fluid -- on sodium bicarbonate 650 mg twice a day -- dose medications for GFR less than 10 -- hold discharge for now until we see improvement in renal function will follow (2) Chronic kidney disease, stage 4 (severe): (3) Hypertension: (4) Hematuria: (5) Anemia: Admission and Anticipated Discharge Date Admission Date: December 06, 2019 Subjective Mr. Aguilar was seen and examined in his room with his at bedside. Overall feeling well, denies any specific symptoms. Blood pressure has been stable, decent urine output, net slightly positive, hematuria resolved. No improvement in renal function yet, K normal. Review of Systems Review of Systems: All systems reviewed & are unremarkable except as noted in HPI & below Results & Data ([facility]) Vital Signs (Past 12 Hours) Vital Signs Temp Pulse Resp BP BP Pulse Ox 12/09/19 07:29 36.8 C 64 18 128/74 96 12/09/19 00:35 37.1 C 12/08/19 23:35 37.6 C H 79 18 121/67 95 PG Care Time/CCT Total # of Minutes Spent Total Time Spent with Patient: Total time spent is greater than 50% in coordination of care (as documented) at patient's floor/unit and/or counseling patient: Coding Level of Care Code 51149 Subseq Hosp Care Lvl 3 Diagnoses Acute kidney injury N17.9 Chronic kidney disease, stage 4 (severe) N18.4 Hypertension I10 Hypertension type: unspecified Hematuria R31.9 Anemia N18.4; D63.1 Anemia type: due to chronic kidney disease Chronic kidney disease stage: stage 4 (severe) (1) Hypertension Hypertension type: unspecified Qualified Code(s): I10 - Essential (primary) hypertension (2) Anemia Anemia type: due to chronic kidney disease Chronic kidney disease stage: stage 4 (severe) Qualified Code(s): N18.4 - Chronic kidney disease, stage 4 (severe); D63.1 - Anemia in chronic kidney disease
[2019-12-09] MEDS ORDERED: HYDROCORTISONE 1% CRM 30 GM TUBE EXT PRN (16:54)
[2019-12-09] MEDS: ATORVASTATIN 40 MG TAB PO SCH (20:21)
[2019-12-10] MEDS: SODIUM CHLORIDE 0.9% 1000ML 1,000 ML IV SCH (04:57)
[2019-12-10] MEDS: DOXYCYCLINE HYCLATE 100 MG in DEXTROSE 5% 100 ML IV SCH (06:00)
[2019-12-10 07:12] LABS: Hematocrit (blood only) 26.5 % (42-52); Hemoglobin 8.9 g/dL (14.0-18.0); Mean Corpuscular Hemoglobin 31.2 pg (25-34); Mean Corpuscular Hgb Conc 33.6 g/dL (32-36); RDW Coefficient of Variation 12.7 % (11.5-14.5); RDW Standard Deviation 43.5 fL (36.4-46.3); Red Blood Count 2.85 M/uL (4.7-6.1); White Blood Count 5.53 K/uL (4.8-10.8)
[2019-12-10 07:20] LABS: Mean Platelet Volume 11.2 fL (7.4-10.4); Platelet Count 83 K/uL (130-400)
[2019-12-10 07:37] LABS: Albumin Level 2.3 gm/dl (3.4-5.0); BUN Creatinine Ratio 20.6 (10-20); Calcium 8.2 mg/dl (8.5-10.1); Creatinine Clr Calc Pharmacy 16.3 ml/min; Est GFR (African American) 16.9; Est GFR (Non-African American) 14.6; Potassium 3.6 mmol/L (3.5-5.1)
[2019-12-10 07:51] LABS: Albumin Globulin Ratio 0.6 (0.9-2); Bilirubin,Total 0.5 mg/dl (0.2-1); Globulin 3.9 gm/dl (2.5-4.0); Phosphorus 3.3 mg/dl (2.5-4.9); Total Protein 6.2 gm/dl (6.4-8.2)
[2019-12-10] MEDS ORDERED: EPOETIN ALFA 40,000 UNITS/ML VIAL SQ STA (08:35)
[2019-12-10] MEDS: allopurinoL 100 MG TAB PO SCH (08:39)
[2019-12-10] MEDS: amLODIPine BESYLATE 5 MG TAB PO SCH (08:39)
[2019-12-10] MEDS: CHOLECALCIFEROL 1,000 UNITS 25 MCG TAB PO SCH (08:40)
[2019-12-10] MEDS ORDERED: SODIUM BICARBONATE 650 MG TAB PO SCH (09:00)
[2019-12-10] MEDS: IRON SUCROSE 200 MG in 0.9 % SODIUM CHLORIDE 100 ML IV SCH (09:41)
--- NOTE | 2019-12-10 11:55 | Nephrology Progress Note ---
Date of Service December 10, 2019 Assessment & Plan (1) Acute kidney injury: Mr. Aguilar Admitted to the hospital with 2 weeks history of intermittent gross hematuria with history BPH, bilateral lateral multiple simple renal cyst, stage IV CKD with baseline creatinine 3-3.4 and chronic anemia. Hemoglobin was 9.5 and found to have AK with creatinine 4.5 and metabolic acidosis. He was also found to have petechial skin rash and thrombocytopenia. CT abdomen pelvis and renal ultrasound was negative for postrenal obstruction, has bilateral nephrolithiasis and concern for possible cyst rupture and bleeding. He has mature left radiocephalic AV fistula. Renal function started to improve, potassium still remained normal, has metabolic acidosis. Hemoglobin relatively stable with iron deficiency. No respiratory distress. -- DC IV fluid, DC home with close outpt lab monitoring. Lab Friday and F/U at CKD clinic with Dr. Hunt in 2 weeks -- increase sodium bicarbonate 650 mg 2 tab twice a day -- dose medications for GFR less than 10 will follow (2) Chronic kidney disease, stage 4 (severe): (3) Hypertension: (4) Hematuria: (5) Anemia: Admission and Anticipated Discharge Date Admission Date: December 06, 2019 Subjective Mr. Aguilar was seen and examined in his room with his at bedside. Overall feeling well although had a rough night and could not sleep well, denies any specific symptoms. Blood pressure has been stable, decent urine output, net even, hematuria resolved,renal function started to improve, K normal. Review of Systems Review of Systems: All systems reviewed & are unremarkable except as noted in HPI & below Physical Exam Constitutional: well developed and well nourished; no acute distress Respiratory: normal respiratory effort, lungs clear to auscultation Cardiovascular: RRR, no murmur, no edema Neurologic: moves all extremities and awake; not confused Psychiatric: A+Ox3, euthymic affect Results & Data ([facility]) Vital Signs (Past 12 Hours) Vital Signs Temp Pulse Resp BP Pulse Ox 12/10/19 11:34 36.8 C 71 16 132/61 98 12/10/19 07:38 36.9 C 80 16 135/68 96 PG Care Time/CCT Total # of Minutes Spent Total Time Spent with Patient: Total time spent is greater than 50% in coordination of care (as documented) at patient's floor/unit and/or counseling patient: Coding Level of Care Code 34622 Subseq Hosp Care Lvl 3 Diagnoses Acute kidney injury N17.9 Chronic kidney disease, stage 4 (severe) N18.4 Hypertension I10 Hypertension type: unspecified Hematuria R31.9 Anemia N18.4; D63.1 Anemia type: due to chronic kidney disease Chronic kidney disease stage: stage 4 (severe) (1) Hypertension Hypertension type: unspecified Qualified Code(s): I10 - Essential (primary) hypertension (2) Anemia Anemia type: due to chronic kidney disease Chronic kidney disease stage: stage 4 (severe) Qualified Code(s): N18.4 - Chronic kidney disease, stage 4 (severe); D63.1 - Anemia in chronic kidney disease
--- NOTE | 2019-12-10 15:50 | Discharge Summary ---
Date of Service date of admission - December 06, 2019 date of discharge - December 10, 2019 Admission HPI Per Admitting Provider 79 y/o M c/o blood in his urine. Pt states that he was outside doing a lot of heavy lifting in the yard are few weeks ago. He felt suddenly unwell and came in side to urinate. His urine at that time was bright red blood. He felt it was thicker than usual and mostly blood. He has continued to pass blood "in some color" over the last two weeks. It has never been quite like the initial episode, but has been darker or orange. He does note that today it was "almost normal" in that it was more yellow, although a darker yellow. Pt notes that he has had UAs come back with microscopic blood many times over the last 30 yrs, but no hx of actually visualizing blood. He has had no issues with urination otherwise. He is still going about every 4 hours, which is usual. No pain, incomplete urination, stopping/starting, etc. No flank pain. Pt called his urology office and was told his urologist, Dr. Lowry, was out of the office and that someone would call him back. This did not happen, so he called his cartridge assembling machine adjuster, Dr. Hunt. Labs were ordered at that time, however pt states there was no f/u. He called the office today and was directed to the ED. Pt states that he had an episode of n/v the first night after the bleeding and then he felt like "my body reset completely" and it did not happen again until early this AM. He has been eating without issue other than a low appetite the last few weeks. Pt notes that yesterday he felt very weak and tired. He states he was walking around his house "like an old man". He was sore and had body aches and just felt generally unwell. This has resolved ever since his episode of emesis early this AM. Pt's noticed this AM that pt has a rash all over his back. He states it does not itch or otherwise bother him. He would not have known it was there had she not seen it. She is certain it was not there yesterday. During my exam, it was noted that pt has a rash on his legs that was not there this morning. Pt notes increased bruising over the last 2 weeks as well. Pt states he has hx of "one of the other tick illnesses" that was tx here several years ago. He notes finding a tick a few weeks ago. He states they have ticks around their home and he gets several bites a year. He also notes that a few weeks ago he came home from fishing and had some sort of bites all over his face that were itchy. He does not know what bit him at that time. Pt denies fever, SOB, chest pain, abd pain, c/d, LE pain or swelling. Principal Diagnosis gross hematuria, resolved Discharge Exam Constitutional well developed and well nourished; no acute distress and no altered mental status ENMT external ear and nose normal, oropharynx normal Respiratory normal respiratory effort, lungs clear to auscultation Cardiovascular Rate/Rhythm: regular rate and regular rhythm Heart Sounds: normal S1 and normal S2 Vessels: posterior tibial pulses present and dorsalis pedis pulses present; no JVD Extremities: no edema Gastrointestinal (Abdomen) normal bowel sounds, soft, nontender, no hepatosplenomegaly Skin erythematous macular and maculopapular rash on back, distal legs, and to a lesser extent on arms; bruising noted on limbs Psychiatric A+Ox3, euthymic affect Discharge Data Allergies Allergy/AdvReac Type Severity Reaction Status Date / Time Sulfa (Sulfonamide Allergy Unknown "DON'T Verified 12/16/19 14:37 Antibiotics) REMEMBER, IT WAS SO LONG AGO" Consultations Consult Nephrology - [facility] Consult Urology - [facility] Consult Infectious Diseases - [facility] via Telemedicine Ordered Studies 12/06/19 10:07 CT abd pelvis wo con Stat IMPRESSION: 1. Nonobstructing bilateral nephrolithiasis, unchanged. No ureteral calculi or obstructive uropathy. 2. Bilateral renal hypodensities redemonstrated suggestive of probable cysts with bilateral hyperdense lesions also again noted suggestive of proteinaceous or hemorrhagic cysts, incompletely characterized on this noncontrast study. 3. Interval healing right posterior 10th rib fracture. 4. Colonic diverticulosis without acute diverticulitis. 5. No bowel obstruction or bowel wall thickening. 12/06/19 18:46 US renal/blad retro comp Stat IMPRESSION: 1. Nonobstructing bilateral nephrolithiasis without hydronephrosis. 2. Increased echogenicity of the kidneys with cortical thinning suggests chronic medical renal disease. 3. Bilateral simple and complex cysts redemonstrated. 3.4 cm lesion of the inferior pole right kidney without color flow identified may also reflect a complex cyst. Hospital Course (1) Hematuria: Gross hematuria started at home after doing strenuous work outside. Imaging suggested possible renal cyst rupture which could have been the etiology. Gross hematuria improved while hospitalized. Aspirin held. Seen by [facility] - to have outpatient cystoscopy. Patient has h/o chronic microscopic hematuria and has had prior work-up for such. (2) Acute renal failure: JIN on CKD 4 baseline Cr 2.6 - 3.5 Peak Cr 4.4 likely dehydrated due to poor PO intake and taking lasix prior to admission FE Urea 31% consistent with pre renal disease renal ultrasound and CT a/p -- kidneys not obstructed Seen by [facility] nephrology -- started on sodium bicarb tabs Discharge Cr was 3.6 - nearing his baseline Patient to have f/u labs on 12/13/19, to ensure stability of creatinine (3) Lyme disease: IgG antibody indicates prior infection, however Lyme IgM 23kDa band reactive -- uncertain significance. [facility] recommended doxy for total of 14 days while awaiting Western Blot results. 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 Anaplasmosis DNA test was dispatched & was pending at discharge. Received doxycycline while here, and will continue such at discharge while tick- borne labs are pending. (5) Anemia: normocytic Hb 10.3 on admission, baseline is 11.3-12.5 likely related to underlying renal failure no schistocytes on peripheral smear received venofer 200mg IV daily while here (6) Thrombocytopenia: new since smear confirms decreased platelets no evidence of TTP Certainly tick-borne infection can contribute; thus ehrlichia serology, rickettsia IgM, typhus IgG and IgM, Q fever IgG and IgM and repeat anaplasma DNA were dispatched platelet count ranged 70s/80s the entire stay these levels were consistent with prior levels in early 2019 ITP?? recommended [facility] (he[facility]onc) for additional work- up (7) Rash: Hx of tick bites, including recently Hx of anaplasmosis 07/2018 Lyme, RMSF, rickettsial panel,ehrlichiosis pending rash appeared viral in etiology vs tick-borne in etiology rash did indeed improve while here he will continue topical steroid cream at discharge (8) Hypertension: norvasc 5mg PO daily (9) Chronic kidney disease, stage 4 (severe): thought to be related to microvascular disease, hypertensive nephrosclerosis previous IgA, ESR, KVNG/ANCA, complement, hepatitis serology WNL per renal notes Fistula placed 2018, no hx of HD Baseline cr 2.9-3.2 placed on sodium bicarbonate tablets while here and will continue on such after discharge (10) Hyperlipidemia: continue home meds (11) BPH w/o urinary obs/LUTS: No current medications Total Time Total Time Spent Total Time Spent (In Minutes): 45 Total Time Includes: Examination of the Patient, Discharge Planning, Medication Reconciliation and Communication With Other Providers Discharge Plan Discharge Items Patient Disposition: Home - Self-Care Reason For Visit: Hematuria (blood in urine) Discharge Diagnosis: 1. hematuria - resolved; was likely due to a kidney cyst that bled but follow- up with Dr Lowry needed 2. rash - tick-borne vs viral vs other - slowly improving 3. ?tick-borne illness - to complete a course of doxycycline; multiple tests pending 4. advancing chronic kidney disease - very close follow-up with Dr Hunt needed 5. low platelets - present since 05/2019 - follow-up with hematology needed for this Activity: As commented below Activity Comment: gradually increase your activities over the next 5-7 days Lifting: No more than 10 pounds Lifting Comment: please no lifting over 10 pounds for 1 week Sexual Activity: Wait until after follow-up appointment Exercise/Sports: Wait until after follow-up appointment Driving/Machine Use: No limitations Non-emergency contact: Primary Care Provider, Freight Router and Urologist Call non-emergency contact if: you have any medication questions, your symptoms worsen and you have a fever Follow-up/Referrals: Isra Lowry MD [Physician] - 12/30/19 9:00 am (This appointment is for a Cystoscopy. Dr Juares's office will contact you with further instructions. If you have any questions or need to change this appointment, please call [phone].) Dale Hunt MD [Physician] - 12/16/19 2:30 pm Nico Jordan III, MD [Primary Care Provider] - (see Dr Jordan within 1-2 weeks ) Diet: Low Potassium (2gm) Addtl Attending Provider Instructions: You were admitted for various issues including hematuria (blood in urine), acute kidney injury (your creatinine kidney level in the blood was higher than normal), rash, and feeling unwell. The hematuria has resolved. This was thought 2nd to a kidney cyst that bled, perhaps from the heavy lifting you had been doing at home. Your kidney levels improved while here. It peaked at 4.4 and today it is 3.6 which is close to your "baseline." The rash is slowly fading. Exact etiology is uncertain but perhaps due to a virus or a tickborne illness. The low platelets has been present since at least May 2019. The platelet level is at a level that is not dangerous but deserves very close follow-up attention. Of note - your COVID-19 test was NEGATIVE. Recommendations - 1. for possible tick-borne infection -- * complete 10 more days of doxycycline antibiotic * this antibiotic may cause heartburn * it covers most tick-borne infections we see in [facility] * it can cause a rash if you go out in the sun while taking it; thus, cover up over the next 10 days 2. for kidney disease and anemia please have blood work done on 12/13/19; can have this done at the [facility] 3. for low platelets -- please ask Dr Jordan to refer you to Dr Irineo Wall, hematology, at the [facility] Do not take [id number]-xeryfuh ibuprofen, motrin, etc. Stop your aspirin for now. 4. rash - may use triamcinolone cream up to three times daily for 7-10 days; avoid your face/genitals. 5. for your kidneys - take sodium bicarbonate tablets - 2 tabs twice daily every day. Followup - see separate section Return to [facility] if - * you have fevers over 100 degrees * you have worsening rash * you have shortness of breath * any other concerns Pending Studies at Discharge: Yes Studies:: tick-borne studies Stand-Alone Forms: [facility]Jour, Smoking Cessation Medications and DC Order Prescriptions: New sodium bicarbonate 650 mg Tablet 1,300 mg PO BID Qty: 120 RF: 2 triamcinolone acetonide 0.1 % cream 1 applic topical TID PRN (Reason: rash) Qty: 30 RF: 1 Continued allopurinol 100 mg tablet 100 mg PO QAM Qty: 90 RF: 3 amlodipine 5 mg tablet 5 mg PO QAM Qty: 90 RF: 3 atorvastatin 80 mg tablet 80 mg PO HS Qty: 90 RF: 3 furosemide 40 mg tablet 20 mg PO DAILY PRN (Reason: edema) Qty: 30 RF: 11 cholecalciferol (vitamin D3) 50 mcg (2,000 unit) tablet 50 mcg PO DAILY RF: 0 melatonin 10 mg capsule 10 mg PO HS PRN (Reason: Sleep) RF: 0 Discontinued tadalafil 5 mg tablet 5 mg PO DAILY PRN (Reason: sexual activity) Qty: 20 RF: 2 aspirin 81 mg Tablet,Delayed Release (Dr/Ec) 81 mg PO QAM RF: 0 Discharge Orders: Discharge Order (Routine); Ordered 12/10/19 Ordered By: Serge Pettit Admission Data Admit Date/Time: 12/06/19 15:32 Attending Provider: Serge Pettit Admit Provider: Lilibeth Watt Primary Care Provider: Nico Jordan III Other Providers: Lilibeth Watt ; Dale Hunt ; Isra Lowry ; Tristin Estrada ; Pita Vitale ; Jeff Perdomo I. ; Rene Huitron II ; Jeannette Roche ; Daniel Saravia Other Interventions: Discharge Summary Assessment (RN) Last Done: 12/10/19 15:53 Coding Level of Care Code D/C Day Management >30 mins Diagnoses Hematuria R31.0 Hematuria type: gross Acute renal failure N17.9 Acute renal failure type: unspecified Lyme disease A69.20 Anaplasmosis A77.49 Anemia N18.4; D63.1 Anemia type: due to chronic kidney disease Chronic kidney disease stage: stage 4 (severe) Thrombocytopenia D69.6 Rash R21 Hypertension I10 Hypertension type: unspecified Chronic kidney disease, stage 4 (severe) N18.4 Hyperlipidemia E78.5 Hyperlipidemia type: unspecified BPH w/o urinary obs/LUTS N40.0
[2019-12-12 17:22] LABS: Q Fever IgG, Phase I NEGATIVE; Q Fever Phase I IgM Antibody NEGATIVE; Q Fever Phase II IgG Antibody NEGATIVE; Q Fever Phase II IgM Antibody NEGATIVE; R. typhi IgG Ab DETECTED; R. typhi IgM Ab NOT DETECTED; RMSF IgG Ab DETECTED; RMSF IgM Ab NOT DETECTED
[2019-12-15 03:16] LABS: Ehrlichia chaff DNA Bld Not Detected (Not Detected); Ehrlichia chaff IgG Ab <1:64 (<1:64); Ehrlichia chaff IgM Ab <1:20 (<1:20)
== END 2019-12-10 18:17 | disposition home or self-care (01) | DRG 868 ==
LOC: ED 09:15 → SUATTDRO 15:32 → 2N 15:32

== ENCOUNTER 2020-08-24 13:38 | Inpatient (IN) ==
--- NOTE | 2020-08-24 14:40 | Emergency Department Note ---
Impression & Plan Diverticulitis of colon with perforation, Lower abdominal pain, Nausea & vomiting ED Provider Note NAME: IAIN REYNA AGE: 80 SEX: M ARRIVES VIA: Walk-In INFORMANT: Patient, ED PROVIDER(S): Reuben Yeh MD CHIEF COMPLAINT: Abdominal pain PLAN: Disposition: Admit MEDICAL DECISION MAKING: The patient is a pleasant 80-year-old gentleman with a past medical history of end-stage renal disease on hemodialysis who presents to the emergency department for evaluation of ongoing abdominal pain and nausea with episode of dry heaves and associated generalized weakness and confusion that began last night and continued into today and did not improve while he was at hemodialysis and so his session was discontinued early. Patient reports he went home but continued to feel unwell followed with his PCPs office later in the day who referred him to the emergency department for evaluation of his ongoing abdominal pain, nausea and weakness. Prior to last night the patient denies any recent illness including denies fevers, chills, cough, congestion, chest pain, shortness of breath, headache, He reports he does not urinate anymore and that he has been on dialysis since May. He denies missing any dialysis sessions. Patient does report his last bowel movement was yesterday but it was very small amounts and did require straining which is not his normal pattern. Prior to this he reports moving his bowels daily. On arrival patient is fatigued and uncomfortable but no acute distress, afebrile with stable vital signs. He appears clinically dry. He has mild lower abdominal tenderness without guarding or rebound. Chest x-ray was negative for acute cardiopulmonary process. No free air underneath the diaphragm. WBC 11.2K. H/H 11.6/34.8 increased from prior values though may reflect a component of hemoconcentration given the patient just had hemodialysis this morning. Platelets 89K approximate to prior range of values. BUN 27 and Creatinine 3.9 improved from recent with approximate to prior values in the setting of known ESRD on HD. LFTs without significant abnormality. Troponin negative/undetectable. COVID-[address] of the abdomen pelvis was performed and demonstrates evidence of sigmoid diverticulitis with evidence of microperforation with several gas bubbles visualized within the adjacent mesentery. However, there is no fluid collections/drainable abscess. Patient's treatment was initiated with IV Zosyn. He is agreeable with plan for admission. Resident, Dr. Florence Aguirre, reviewed the case with Dr. Cummings, [facility] hospitalist, who will evaluate the patient for admission. This patient was managed with the assistance of resident, Dr. Florence Aguirre. I discussed the case with the resident, examined the patient, and confirm the findings and plan as documented in this note. Triage Nursing notes reviewed and agree them. Prior medical records reviewed Vital Signs: reviewed and remarkable for no significant abnormalities Differential diagnosis: Appendicitis, testicular torsion, infections, diverticulitis, UTI, obstruction, mesenteric ischemia, aortic pathology, inflammatory bowel disease, renal colic, PUD, pancreatitis, biliary pathology, hernia, volvulus, constipation, as well as other pathologies. ER treatment provided: See below. Diagnostics interpreted by me: Cardiac Monitoring: An order for continuous cardiac monitoring was placed and demonstrated normal sinus rhythm, 73 bpm, no ectopy. Laboratory studies: See below Imaging studies: See below Consultation(s): Dr. Cummings, [facility] hospitalist, will evaluate the patient for admission. HPI: The patient is a pleasant 80-year-old gentleman with a past medical history of end-stage renal disease on hemodialysis who presents to the emergency department for evaluation of ongoing abdominal pain and nausea with episode of dry heaves and associated generalized weakness and confusion that began last night and continued into today and did not improve while he was at hemodialysis and so his session was discontinued early. Patient reports he went home but continued to feel unwell followed with his PCPs office later in the day who referred him to the emergency department for evaluation of his ongoing abdominal pain, nausea and weakness. Prior to last night the patient denies any recent illness including denies fevers, chills, cough, congestion, chest pain, shortness of breath, headache, He reports he does not urinate anymore and that he has been on dialysis since May. He denies missing any dialysis sessions. Patient does report his last bowel movement was yesterday but it was very small amounts and did require straining which is not his normal pattern. Prior to this he reports moving his bowels daily. ROS: See above HPI for pertinent positives & negatives. A total of 10 systems reviewed and were otherwise negative. PAST MEDICAL HISTORY:See Below PAST SURGICAL HISTORY:See Below FAMILY HISTORY:See Below SOCIAL HISTORY:See Below HOME MEDICATIONS:See Below ALLERGIES:See Below VITALS:See Below PHYSICAL EXAMINATION: GENERAL: Awake, alert, uncomfortable-appearing, in no distress HENT: Normocephalic, atraumatic. Oropharynx with dry mucous membranes and otherwise unremarkable. EYES: Normal conjunctiva. Sclera non-icteric. NECK: Supple. No nuchal rigidity. FROM. No JVD. RESPIRATORY: Clear to auscultation. CARDIAC: Regular rate, normal rhythm. Extremities warm and well perfused. Pulses equal. Left forearm AV fistual with palpable bruit. ABDOMEN: Soft, non-distended. Mild lower abdominal tenderness to palpation. No rebound or guarding. No masses. RECTAL: Deferred. MUSCULOSKELETAL: Chest examination reveals no tenderness. The back is symm etrical on inspection without obvious abnormality. There is no CVA tenderness to palpation. No joint edema. LOWER EXTREMITIES: Calves are equal size bilaterally and non-tender. No edema. No discoloration. NEURO: Normal sensorium. No sensory or motor deficits noted. SKIN: No rash or jaundice noted. Reuben Yeh MD Past Med/Surg History Medical History BPH w/o urinary obs/LUTS Chronic kidney disease, stage 4 (severe) FOLLOWS W/ DR. WILCOX ESRD (end stage renal disease) on dialysis GERD (gastroesophageal reflux disease) Hearing deficit BL AVINA Hyperlipidemia Hypertension Renal cysts, acquired, bilateral Vitamin D deficiency Surgical History H/O tooth extraction History of cardiac cath 7 YEARS AGO - - [facility] IN [place] - 2 STENTS PLACED - FOLLOWS W/ DR. ALFARO 6 YEARS AGO - REASON? 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 Beliefs That Will Affect Care: None Current Living Situation: Spouse Other Information That Helps Us Care for You: No Feels Safe at Home: Yes Safety Concerns: Feels Safe At This Time Assistive Devices: Denture - Upper, Denture - Lower, Glasses and Hearing Aid - Bilateral Allergies Allergies Allergy/AdvReac Type Severity Reaction Status Date / Time Sulfa (Sulfonamide Allergy Unknown "DON'T Verified 08/24/20 15:34 Antibiotics) REMEMBER, IT WAS SO LONG AGO" Home Meds Home Medications Medication Instructions Recorded Confirmed melatonin 10 mg capsule 10 mg PO HS PRN 11/02/18 08/24/20 aspirin 81 mg tablet,delayed 81 mg PO HS 08/24/20 08/24/20 release Previous Rx's Medication Instructions Recorded atorvastatin 80 mg tablet 80 mg PO HS #90 tab 09/06/19 furosemide 40 mg tablet 20 mg PO DAILY PRN #30 tab 11/09/19 allopurinol 100 mg tablet 100 mg PO QAM #90 tab 02/17/20 vitamin B complex and vitamin C 1 cap PO DAILY #90 cap 05/08/20 no.20-folic acid 1 mg capsule (Renal Caps) amlodipine 5 mg tablet 5 mg PO QAM #90 tab 05/10/20 tadalafil 5 mg tablet 5 mg PO DAILY PRN #20 tab 08/23/20 Results & Data (ED) Vital Signs Vital Signs - 24 hr 08/24/20 13:41 08/24/20 15:30 08/24/20 16:00 Temperature 37.5 C Temperature Source Oral Pulse Rate 77 72 73 Pulse Rate from SpO2 Sensor 71 72 Respiratory Rate 20 26 H 21 Respiratory Effort / Characteristics Non-Labored Spontaneous Respiratory Depth Normal Respiratory Pattern Regular Blood Pressure 133/61 114/59 L 124/59 L Blood Pressure Mean 85 77 80 Pulse Oximetry 95 91 91 Oxygen Delivery Method Room Air Sepsis Recent Fever Within 48 Hours No Sepsis New/Unexplained Change in Mental Status N/A Sepsis Action Taken by Nursing No Action Required 08/24/20 16:30 08/24/20 17:00 08/24/20 17:30 Temperature Temperature Source Pulse Rate 70 70 67 Pulse Rate from SpO2 Sensor 71 69 67 Respiratory Rate 22 20 19 Respiratory Effort / Characteristics Respiratory Depth Respiratory Pattern Blood Pressure 112/59 L 112/56 L 112/54 L Blood Pressure Mean 76 74 73 Pulse Oximetry 92 93 94 Oxygen Delivery Method Sepsis Recent Fever Within 48 Hours Sepsis New/Unexplained Change in Mental Status Sepsis Action Taken by Nursing 08/24/20 18:00 Temperature Temperature Source Pulse Rate 66 Pulse Rate from SpO2 Sensor 66 Respiratory Rate 18 Respiratory Effort / Characteristics Respiratory Depth Respiratory Pattern Blood Pressure 100/58 L Blood Pressure Mean 72 Pulse Oximetry 93 Oxygen Delivery Method Sepsis Recent Fever Within 48 Hours Sepsis New/Unexplained Change in Mental Status Sepsis Action Taken by Nursing Laboratory Data Attestation: I reviewed the patient's lab results. Result diagrams: 08/24/20 14:09 08/24/20 14:09 Lab Results 08/24/20 08/24/20 08/24/20 Range/Units 14:09 14:09 16:42 WBC 11.28 H (4.8-10.8) K/uL RBC 3.58 L (4.7-6.1) M/uL Hgb 11.6 L (14.0-18.0) g/dL Hct 34.8 L (42-52) % MCV 97.2 (80-100) fL MCH 32.4 (25-34) pg MCHC 33.3 (32-36) g/dL RDW Std Deviation 52.3 H (36.4-46.3) fL RDW Coeff of Hermes 14.7 H (11.5-14.5) % Plt Count 89 L (130-400) K/uL MPV 11.3 H (7.4-10.4) fL Immature Gran % (Auto) 0.2 % Neut % (Auto) 82.3 % Lymph % (Auto) 6.6 % [place] % (Auto) 10.7 % Eos % (Auto) 0.1 % Baso % (Auto) 0.1 % Neut # (Auto) 9.29 H (1.4-6.5) K/uL Lymph # (Auto) 0.74 L (1.2-3.4) K/uL [place] # (Auto) 1.21 H (0.11-0.59) K/uL Eos # (Auto) 0.01 (0-0.5) K/uL Baso # (Auto) 0.01 (0-0.2) K/uL Immature Gran # (Auto) 0.02 (0.00-0.02) K/uL Platelet Estimate Decreased L (Normal) Sodium 135 L (136-145) mmol/L Potassium 4.0 (3.5-5.1) mmol/L Chloride 99 (98-107) mmol/L Carbon Dioxide 30 (21-32) mmol/L Anion Gap 6.0 (3-11) BUN 27 H (7-18) mg/dl Creatinine 3.97 H (0.6-1.4) mg/dl Est Cr Clr Drug Dosing Not Reportable Est GFR ( Amer) 15.3 ml/min Est GFR (Non-Af Amer) 13.2 ml/min BUN/Creatinine Ratio 6.8 L (10-20) Glucose 108 H (70-99) mg/dl Calcium 8.7 (8.5-10.1) mg/dl Phosphorus 2.5 (2.5-4.9) mg/dl Magnesium 1.9 (1.8-2.4) mg/dl Total Bilirubin 0.6 (0.2-1) mg/dl AST 18 (15-37) U/L ALT 27 (12-78) U/L Alkaline Phosphatase 66 (45-117) U/L Troponin I < 0.015 (0-0.045) ng/ml Total Protein 7.5 (6.4-8.2) gm/dl Albumin 3.3 L (3.4-5.0) gm/dl Globulin 4.2 H (2.5-4.0) gm/dl Albumin/Globulin Ratio 0.8 L (0.9-2) COVID-19 Eval Order Covid19 at [facility] SARS-CoV-2 (PCR) (Negative) 08/24/20 Range/Units 16:42 WBC (4.8-10.8) K/uL RBC (4.7-6.1) M/uL Hgb (14.0-18.0) g/dL Hct (42-52) % MCV (80-100) fL MCH (25-34) pg MCHC (32-36) g/dL RDW Std Deviation (36.4-46.3) fL RDW Coeff of Hermes (11.5-14.5) % Plt Count (130-400) K/uL MPV (7.4-10.4) fL Immature Gran % (Auto) % Neut % (Auto) % Lymph % (Auto) % [place] % (Auto) % Eos % (Auto) % Baso % (Auto) % Neut # (Auto) (1.4-6.5) K/uL Lymph # (Auto) (1.2-3.4) K/uL [place] # (Auto) (0.11-0.59) K/uL Eos # (Auto) (0-0.5) K/uL Baso # (Auto) (0-0.2) K/uL Immature Gran # (Auto) (0.00-0.02) K/uL Platelet Estimate (Normal) Sodium (136-145) mmol/L Potassium (3.5-5.1) mmol/L Chloride (98-107) mmol/L Carbon Dioxide (21-32) mmol/L Anion Gap (3-11) BUN (7-18) mg/dl Creatinine (0.6-1.4) mg/dl Est Cr Clr Drug Dosing Est GFR ( Amer) ml/min Est GFR (Non-Af Amer) ml/min BUN/Creatinine Ratio (10-20) Glucose (70-99) mg/dl Calcium (8.5-10.1) mg/dl Phosphorus (2.5-4.9) mg/dl Magnesium (1.8-2.4) mg/dl Total Bilirubin (0.2-1) mg/dl AST (15-37) U/L ALT (12-78) U/L Alkaline Phosphatase (45-117) U/L Troponin I (0-0.045) ng/ml Total Protein (6.4-8.2) gm/dl Albumin (3.4-5.0) gm/dl Globulin (2.5-4.0) gm/dl Albumin/Globulin Ratio (0.9-2) COVID-19 Eval Order SARS-CoV-2 (PCR) NEGATIVE (Negative) Administered Medications Acetaminophen (Acetaminophen 325 Mg Tab) 650 mg PO Q4H PRN PRN Reason: pain/fever Stop: 09/23/20 20:06 Last Admin: 08/24/20 21:37 Dose: 650 mg Documented by: [id number] Aspirin (Aspirin 81 Mg Ectab) 81 mg PO HS BRIANA Stop: 09/23/20 20:59 Last Admin: 08/24/20 21:37 Dose: 81 mg Documented by: [id number] Atorvastatin Calcium (Atorvastatin 40 Mg Tab) 80 mg PO HS BRIANA Stop: 09/23/20 20:59 Last Admin: 08/24/20 21:37 Dose: 80 mg Documented by: [id number] Sodium Chloride (Nss 1000ml) 1,000 mls @ 50 mls/hr IV .Q20H BRIANA Stop: 09/23/20 20:29 Last Infusion: 08/24/20 23:12 Dose: 0 mls/hr Documented by: [id number] Admin: 08/24/20 20:23 Dose: 50 mls/hr Documented by: [id number] Piperacillin Sod/Tazobactam (Sod 3.375 gm/ Dextrose) 115 mls @ 28.75 mls/hr IV Q12H BRIANA; Protocol Stop: 09/03/20 03:59 Last Admin: 08/24/20 23:12 Dose: 28.8 mls/hr Documented by: [id number] Melatonin (Melatonin 3 Mg Tab) 9 mg PO HSZ PRN PRN Reason: Sleep Stop: 09/23/20 20:16 Last Admin: 08/24/20 21:38 Dose: 9 mg Documented by: [id number] Discontinued Medications Famotidine (Famotidine 20mg/5ml Iv Push) 20 mg IV ONE STA Stop: 08/24/20 14:45 Last Admin: 08/24/20 15:29 Dose: 20 mg Documented by: [id number] Acetaminophen (Ofirmev) 1,000 mg in 100 mls @ 400 mls/hr IV NOW STA Stop: 08/24/20 14:58 Last Infusion: 08/24/20 17:51 Dose: 0 mls/hr Documented by: [id number] Admin: 08/24/20 15:29 Dose: 400 mls/hr Documented by: [id number] Piperacillin Sod/Tazobactam (Sod 3.375 gm/ Dextrose) 100 ml in 115 mls @ 230 mls/hr IV NOW STA Stop: 08/24/20 16:01 Last Infusion: 08/24/20 17:51 Dose: 0 mls/hr Documented by: [id number] Admin: 08/24/20 16:47 Dose: 230 mls/hr Documented by: [id number] Imaging Data Radiologist's Impression: Abdomen/Pelvis CT 08/24/20 14:41 CT SCAN OF THE ABDOMEN AND PELVIS WITHOUT CONTRAST CLINICAL HISTORY: suprapubic pain COMPARISON STUDY: 12/06/2019 TECHNIQUE: CT scan of the abdomen and pelvis was performed from the lung bases to the proximal femurs. Images are reviewed in the axial, sagittal, and coronal planes. IV contrast was not administered for this examination. A dose lowering technique was utilized adhering to the principles of ALARA. CT DOSE: 385.75 mGy.cm FINDINGS: Lower chest: The heart is enlarged. There is mild basilar atelectatic changes. Liver: The unenhanced liver is normal in size, contour, and attenuation. There is no intrahepatic biliary ductal dilatation. Gallbladder: Mildly distended. No calculi are visualized. Spleen: Normal in size and attenuation. Pancreas: Unremarkable. Adrenal glands: Unremarkable. Kidneys: There are multiple bilateral renal masses, likely representing a combination of cysts and hyperdense cysts. These are suboptimally evaluated on a noncontrast study. Several the cysts appear complex with borderline thickened angel. There are also a few punctate wall calcifications. There is a nonobstructing 3 mm right renal calculus. No ureteral or bladder calculi are visualized. Bowel: There are no transition zones to indicate bowel obstruction. The appendix appears normal. There is sigmoid diverticulosis. There is sigmoid wall thickening and infiltration of the perisigmoid fat consistent with acute diverticulitis. There is evidence for a microperforation as several gas bubbles are visualized within the adjacent mesentery. There are no fluid collections to indicate a drainable abscess. Peritoneum: There is no significant ascites. There is mild presacral edema. Vasculature: The abdominal aorta is normal in course and caliber. Adenopathy: None. Pelvic viscera: There is mild prostatomegaly Skeletal structures: No destructive osseous lesions are seen. IMPRESSION: 1. CT findings indicative of acute sigmoid diverticulitis with a microperforation as evidenced by small air bubbles within the adjacent mesentery. There is no evidence of drainable abscess. 2. Other findings as described above. ACT 112: Negative or not required by law. Electronically signed by: Nato Dupree M.D. 08/24/2020 3:26 PM Chest X-Ray 08/24/20 14:43 XR chest 1V portable HISTORY: Generalized abdominal pain. COMPARISON: Chest 07/18/2018. FINDINGS: The lungs are clear. Cardiac silhouette is normal in size. No pleural effusions. No pneumothorax. IMPRESSION: No acute process. ACT 112: Negative or not required by law. Electronically signed by: Sher Mendes M.D. 08/24/2020 3:04 PM Discharge Plan Visit Data Chief Complaint: Abdominal Pain Stated Complaint: ABDOMINAL PAIN ED Provider: Reuben Yeh ED Midlevel Provider: Florence Aguirre Discharge Problem: Diverticulitis of colon with perforation, Lower abdominal pain, Nausea & vomiting Patient Disposition: Admitted As Inpatient Discharge Instructions Interventions: ED Discharge Assessment Last Done: 08/24/20 19:44 Discharge Problem: Nausea & vomiting Qualifiers: Vomiting type: unspecified Vomiting Intractability: non-intractable Qualified Code(s): R11.2 - Nausea with vomiting, unspecified
[2020-08-24] MEDS ORDERED: ACETAMINOPHEN 1,000 MG/100 ML VIAL IV STA (14:44)
[2020-08-24] MEDS ORDERED: FAMOTIDINE 20MG/5ML IV PUSH IV STA (14:44)
--- NOTE | 2020-08-24 15:06 | XRay Report ---
XR chest 1V portable HISTORY: Generalized abdominal pain. COMPARISON: Chest 07/18/2018. FINDINGS: The lungs are clear. Cardiac silhouette is normal in size. No pleural effusions. No pneumot horax. IMPRESSION: No acute process. ACT 112: Negative or not required by law. Electronically signed by: Sher Mendes M.D. 08/24/2020 3:04 PM
[2020-08-24 15:19] LABS: Alanine Aminotransferase 27 U/L (12-78); Albumin Level 3.3 gm/dl (3.4-5.0); Aspartate Aminotransferase 18 U/L (15-37); BUN Creatinine Ratio 6.8 (10-20); Blood Urea Nitrogen 27 mg/dl (7-18); Calcium 8.7 mg/dl (8.5-10.1); Carbon Dioxide 30 mmol/L (21-32); Chloride 99 mmol/L (98-107); Est GFR (African American) 15.3 ml/min; Est GFR (Non-African American) 13.2 ml/min; Glucose 108 mg/dl (70-99); Magnesium 1.9 mg/dl (1.8-2.4); Sodium 135 mmol/L (136-145)
[2020-08-24 15:24] LABS: Albumin Globulin Ratio 0.8 (0.9-2); Alkaline Phosphatase 66 U/L (45-117); Bilirubin,Total 0.6 mg/dl (0.2-1); Globulin 4.2 gm/dl (2.5-4.0); Phosphorus 2.5 mg/dl (2.5-4.9); Total Protein 7.5 gm/dl (6.4-8.2); Troponin I < 0.015 ng/ml (0-0.045)
--- NOTE | 2020-08-24 15:28 | CT Scan Report ---
CT SCAN OF THE ABDOMEN AND PELVIS WITHOUT CONTRAST CLINICAL HISTORY: suprapubic pain COMPARISON STUDY: 12/06/2019 TECHNIQUE: CT scan of the abdomen and pelvis was performed from the lung bases to the proximal femurs . Images are reviewed in the axial, sagittal, and coronal planes. IV contrast was not administered fo r this examination. A dose lowering technique was utilized adhering to the principles of ALARA. CT DOSE: 385.75 mGy.cm FINDINGS: Lower chest: The heart is enlarged. There is mild basilar atelectatic changes. Liver: The unenhanced liver is normal in size, contour, and attenuation. There is no intrahepatic linden iary ductal dilatation. Gallbladder: Mildly distended. No calculi are visualized. Spleen: Normal in size and attenuation. Pancreas: Unremarkable. Adrenal glands: Unremarkable. Kidneys: There are multiple bilateral renal masses, likely representing a combination of cysts and hy perdense cysts. These are suboptimally evaluated on a noncontrast study. Several the cysts appear com plex with borderline thickened angel. There are also a few punctate wall calcifications. There is a n onobstructing 3 mm right renal calculus. No ureteral or bladder calculi are visualized. Bowel: There are no transition zones to indicate bowel obstruction. The appendix appears normal. Ther e is sigmoid diverticulosis. There is sigmoid wall thickening and infiltration of the perisigmoid fat consistent with acute diverticulitis. There is evidence for a microperforation as several gas bubble s are visualized within the adjacent mesentery. There are no fluid collections to indicate a drainabl e abscess. Peritoneum: There is no significant ascites. There is mild presacral edema. Vasculature: The abdominal aorta is normal in course and caliber. Adenopathy: None. Pelvic viscera: There is mild prostatomegaly Skeletal structures: No destructive osseous lesions are seen. IMPRESSION: 1. CT findings indicative of acute sigmoid diverticulitis with a microperforation as evidenced by sma ll air bubbles within the adjacent mesentery. There is no evidence of drainable abscess. 2. Other findings as described above. ACT 112: Negative or not required by law. Electronically signed by: Nato Dupree M.D. 08/24/2020 3:26 PM
[2020-08-24] MEDS ORDERED: PIPERACILL/TAZOBAC CONSULT ACTIVE PRN ×2 (15:32→20:07)
[2020-08-24] MEDS ORDERED: PIPERACILLIN/TAZOBACTAM 3.375 GM in DEXTROSE 5% 100 ML/100 ML BAG IV STA (15:32)
[2020-08-24 15:34] LABS: Basophils % (auto) 0.1 %; Eosinophils % (auto) 0.1 %; Hematocrit (blood only) 34.8 % (42-52); Hemoglobin 11.6 g/dL (14.0-18.0); Immature Granulocytes % (auto) 0.2 %; Lymphocytes # (auto) 0.74 K/uL (1.2-3.4); Lymphocytes % (auto) 6.6 %; Mean Corpuscular Hemoglobin 32.4 pg (25-34); Mean Corpuscular Hgb Conc 33.3 g/dL (32-36); Mean Corpuscular Volume 97.2 fL (80-100); Mean Platelet Volume 11.3 fL (7.4-10.4); Monocytes # (auto) 1.21 K/uL (0.11-0.59); Monocytes % (auto) 10.7 %; Neutrophils # (auto) 9.29 K/uL (1.4-6.5); Neutrophils % (auto) 82.3 %; Platelet Count 89 K/uL (130-400); RDW Coefficient of Variation 14.7 % (11.5-14.5); RDW Standard Deviation 52.3 fL (36.4-46.3); Red Blood Count 3.58 M/uL (4.7-6.1); White Blood Count 11.28 K/uL (4.8-10.8)
[2020-08-24 15:35] LABS: Basophils # (auto) 0.01 K/uL (0-0.2); Eosinophils # (auto) 0.01 K/uL (0-0.5); Immature Granulocytes # (auto) 0.02 K/uL (0.00-0.02); Platelet Estimate Decreased (Normal)
--- NOTE | 2020-08-24 16:24 | Emergency Department Note ---
ED Visit Note This patient was seen in concert with Dr. Yeh and we discussed and agreed upon the history, physical, assessment and plan. See attending's note for details. . Resident Activity Tracking Resident Involvement: Resident Care Provided Care Provided: Adult ED
--- NOTE | 2020-08-24 17:36 | History & Physical Report ---
Date of Service August 24, 2020 Assessment & Plan (1) Acute diverticulitis: Plan: Presents with acute sigmoid diverticulitis with microperforation Afebrile with mild leukocytosis and fairly significant abdominal pain Last colonoscopy was 2014 and showed 5 sessile polyps in the descending colon, transverse colon and at hepatic flexure that were removed as well as a 3 mm polyp at the hepatic flexure that was sessile. Also found to have multiple small mouth diverticula in the sigmoid and descending colon. Biopsies proved to all be tubular adenomas. There is no evidence of sepsis at this time and is hemodynamically stable -Admit to medical/surgical floor -Keep n.p.o. for bowel rest -Continue IV Zosyn started in the ER -Start low-dose maintenance fluids given that he is on hemodialysis but will be n.p.o. at 50 mL's per hour of normal saline -Follow CBC, CMP, magnesium in the morning -Pain control with Tylenol as needed and IV Dilaudid as needed for severe pain (2) Anemia: Plan: Very mild with hemoglobin 11.6, normocytic Likely anemia of chronic kidney disease Continue Nephrocaps (3) Arteriosclerotic cardiovascular disease: Plan: With history of ANGELITA x2 Continue home aspirin, atorvastatin He is not on beta-blockers due to history of bradycardia No chest pain at this time troponins negative (4) ESRD (end stage renal disease) on dialysis: Plan: Tolerated 3 hours of dialysis on the day of admission/08/24 Chemistry panel is acceptable He still does make some urine Consult nephrology (5) Gout: Plan: Continue home allopurinol No acute issues (6) Obstructive sleep apnea: Plan: Noted Unclear if on CPAP (7) Renal cysts, acquired, bilateral: Plan: Follows with urology No acute issues (8) Thrombocytopenia: Plan: Platelets low at 89 This is stable from previous and he has had low platelets for at least the last year Patient was unaware that he had thrombocytopenia and has not had further work-up for this No history of liver disease and liver and spleen appear normal in size on imaging Recommend follow-up with hematology as an outpatient Follow CBC (9) Tremor: Plan: Has essential tremor diagnosed by neurology Is not on medication for this (10) Vitamin D deficiency: Plan: Not currently on supplementation for this Follow-up with nephrology (11) Hypertension: Plan: Blood pressures are acceptable Continue home amlodipine (12) Hyperlipidemia: Plan: Continue statin (13) GERD (gastroesophageal reflux disease): Plan: No current medications used for this (14) DVT prophylaxis: Plan: SCDs Physician-admit to medical/surgical floor DNR/DNI as discussed with patient with his at the bedside History of Present Illness Chief Complaint: Abdominal pain Primary Care Provider: Nico Jordan MD This patient is an 80-year-old male with a history of ESRD on hemodialysis, CAD s/p PCI with ANGELITA to diagonal, RCA in 2010, HTN, anemia of chronic renal disease, secondary hyperparathyroidism, hyperlipidemia, GERD, BPH, renal cysts, vitamin D deficiency, essential tremor, neuropathy, JOHN, thrombocytopenia, and former smoker, who presents to the ER with worsening lower abdominal pain that started last night and was fairly significant.He has also been feeling generally weak, and with some nausea and dry heaves this morning. He attempted to go to hemodialysis today but could only stay for 1 hour and had to leave early because he was feeling poorly. His last bowel movement was 2 days ago. He then went to his PCPs office for an acute visit and was sent to the ER. He does still make some urine and made some last night. In the ER, he was found to have CT of abdomen/pelvis with acute sigmoid diver ticulitis with microperforation but no drainable abscess. He had a mild leukocytosis at 11,Thrombocytopenia which is chronic, elevated creatinine consistent with ESRD, and normal LFTs. Covid-19 test was still pending at the time of admission. He was afebrile and had normal vital signs otherwise. He was given IV Tylenol, IV Pepcid, and 1 dose of IV Zosyn in the ER. He will be admitted for acute sigmoid diverticulitis with microperforation. Allergies Allergy/AdvReac Type Severity Reaction Status Date / Time Sulfa (Sulfonamide Allergy Unknown "DON'T Verified 08/24/20 15:34 Antibiotics) REMEMBER, IT WAS SO LONG AGO" Home Medications Medication Instructions Recorded Confirmed Type melatonin 10 mg capsule 10 mg PO HS PRN 11/02/18 08/24/20 History atorvastatin 80 mg tablet 80 mg PO HS #90 tab 09/06/19 08/24/20 Rx furosemide 40 mg tablet 20 mg PO DAILY PRN #30 tab 11/09/19 08/24/20 Rx allopurinol 100 mg tablet 100 mg PO QAM #90 tab 02/17/20 08/24/20 Rx vitamin B complex and vitamin C 1 cap PO DAILY #90 cap 05/08/20 08/24/20 Rx no.20-folic acid 1 mg capsule (Renal Caps) amlodipine 5 mg tablet 5 mg PO QAM #90 tab 05/10/20 08/24/20 Rx tadalafil 5 mg tablet 5 mg PO DAILY PRN #20 tab 08/23/20 08/24/20 Rx aspirin 81 mg tablet,delayed 81 mg PO HS 08/24/20 08/24/20 History release Past Med/Surg History Medical History BPH w/o urinary obs/LUTS Chronic kidney disease, stage 4 (severe) FOLLOWS W/ DR. WILCOX ESRD (end stage renal disease) on dialysis GERD (gastroesophageal reflux disease) Hearing deficit BL AVINA Hyperlipidemia Hypertension Renal cysts, acquired, bilateral Vitamin D deficiency Surgical History H/O tooth extraction History of cardiac cath 7 YEARS AGO - - HOSPITAL IN [place] - 2 STENTS PLACED - FOLLOWS W/ DR. ALFARO 6 YEARS AGO - REASON? - [facility] - NO STENTS/ANGIOPLASTY History of cataract surgery bilateral History of colonoscopy W/ POLYPECTOMY History of heart artery stent History of tonsillectomy Status post creation of arteriovenous fistula (~04/2017) Left wrist; Simoni Family History Other Alzheimer disease Breast cancer Congestive heart failure Prostate cancer Social History Smoking Status: Never smoker Cigarettes Per Day: 1 pack every other day; Second Hand Exposure: No; Hx Alcohol Use: Yes Hx Substance Use: No Preferred Language: Palestinian Communication Ability: Effective Fire Behavior Analyst Required: No Beliefs That Will Affect Care: None Current Living Situation: Spouse Feels Safe at Home: Yes Assistive Devices: Denture - Upper, Denture - Lower and Glasses Review of Systems 2 Review of Systems: All systems reviewed & are unremarkable except as noted in HPI & below No headache or sore throat, no shortness of breath or chest pain, no joint pains or rashes. No urinary symptoms. No lightheadedness No fevers or chills Physical Exam Constitutional: WD/WN, vitals as above Eyes: PERRL, conjunctivae normal, anicteric sclerae ENMT: external ear and nose normal, oropharynx normal Neck: trachea midline, no thyromegaly Respiratory: normal respiratory effort, lungs clear to auscultation Cardiovascular: RRR, no murmur, no edema Extremities: + AV fistula (left forearm) Chest (Breasts): Chest: normal inspection of chest Gastrointestinal (Abdomen): Inspection/Auscultation: abdomen normal to inspection and normal bowel sounds; abdomen not distended Perc ussion/Palpation: + abdomen tender (In left lower quadrant suprapubic area without guarding or rebound) and abdomen soft Musculoskeletal: Extremities: extremities normal to inspection; no cyanosis and no clubbing Skin: no rashes, warm and dry Neurologic: moves all extremities and awake; no focal motor deficits Psychiatric: A+Ox3, euthymic affect Lymphatic: no lymphedema Results & Data Results & Data ([facility]) Vital Signs (Past 12 Hours) Vital Signs Temp Pulse Resp BP Pulse Ox 08/24/20 13:41 37.5 C 77 20 133/61 95 Laboratory Results 08/24/20 08/24/20 08/24/20 Range/Units 16:42 16:42 14:09 WBC (4.8-10.8) K/uL RBC (4.7-6.1) M/uL Hgb (14.0-18.0) g/dL Hct (42-52) % MCV (80-100) fL MCH (25-34) pg MCHC (32-36) g/dL RDW Std Deviation (36.4-46.3) fL RDW Coeff of Hermes (11.5-14.5) % Plt Count (130-400) K/uL MPV (7.4-10.4) fL Immature Gran % (Auto) % Neut % (Auto) % Lymph % (Auto) % Wise % (Auto) % Eos % (Auto) % Baso % (Auto) % Neut # (Auto) (1.4-6.5) K/uL Lymph # (Auto) (1.2-3.4) K/uL Wise # (Auto) (0.11-0.59) K/uL Eos # (Auto) (0-0.5) K/uL Baso # (Auto) (0-0.2) K/uL Immature Gran # (Auto) (0.00-0.02) K/uL Platelet Estimate (Normal) Sodium 135 L (136-145) mmol/L Potassium 4.0 (3.5-5.1) mmol/L Chloride 99 (98-107) mmol/L Carbon Dioxide 30 (21-32) mmol/L Anion Gap 6.0 (3-11) BUN 27 H (7-18) mg/dl Creatinine 3.97 H (0.6-1.4) mg/dl Est Cr Clr Drug Dosing Not Reportable Est GFR ( Amer) 15.3 ml/min Est GFR (Non-Af Amer) 13.2 ml/min BUN/Creatinine Ratio 6.8 L (10-20) Glucose 108 H (70-99) mg/dl Calcium 8.7 (8.5-10.1) mg/dl Phosphorus 2.5 (2.5-4.9) mg/dl Magnesium 1.9 (1.8-2.4) mg/dl Total Bilirubin 0.6 (0.2-1) mg/dl AST 18 (15-37) U/L ALT 27 (12-78) U/L Alkaline Phosphatase 66 (45-117) U/L Troponin I < 0.015 (0-0.045) ng/ml Total Protein 7.5 (6.4-8.2) gm/dl Albumin 3.3 L (3.4-5.0) gm/dl Globulin 4.2 H (2.5-4.0) gm/dl Albumin/Globulin Ratio 0.8 L (0.9-2) COVID-19 Eval Order Covid19 at [facility] SARS-CoV-2 (PCR) Pending 08/24/20 Range/Units 14:09 WBC 11.28 H (4.8-10.8) K/uL RBC 3.58 L (4.7-6.1) M/uL Hgb 11.6 L (14.0-18.0) g/dL Hct 34.8 L (42-52) % MCV 97.2 (80-100) fL MCH 32.4 (25-34) pg MCHC 33.3 (32-36) g/dL RDW Std Deviation 52.3 H (36.4-46.3) fL RDW Coeff of Hermes 14.7 H (11.5-14.5) % Plt Count 89 L (130-400) K/uL MPV 11.3 H (7.4-10.4) fL Immature Gran % (Auto) 0.2 % Neut % (Auto) 82.3 % Lymph % (Auto) 6.6 % Wise % (Auto) 10.7 % Eos % (Auto) 0.1 % Baso % (Auto) 0.1 % Neut # (Auto) 9.29 H (1.4-6.5) K/uL Lymph # (Auto) 0.74 L (1.2-3.4) K/uL Wise # (Auto) 1.21 H (0.11-0.59) K/uL Eos # (Auto) 0.01 (0-0.5) K/uL Baso # (Auto) 0.01 (0-0.2) K/uL Immature Gran # (Auto) 0.02 (0.00-0.02) K/uL Platelet Estimate Decreased L (Normal) Sodium (136-145) mmol/L Potassium (3.5-5.1) mmol/L Chloride (98-107) mmol/L Carbon Dioxide (21-32) mmol/L Anion Gap (3-11) BUN (7-18) mg/dl Creatinine (0.6-1.4) mg/dl Est Cr Clr Drug Dosing Est GFR ( Amer) ml/min Est GFR (Non-Af Amer) ml/min BUN/Creatinine Ratio (10-20) Glucose (70-99) mg/dl Calcium (8.5-10.1) mg/dl Phosphorus (2.5-4.9) mg/dl Magnesium (1.8-2.4) mg/dl Total Bilirubin (0.2-1) mg/dl AST (15-37) U/L ALT (12-78) U/L Alkaline Phosphatase (45-117) U/L Troponin I (0-0.045) ng/ml Total Protein (6.4-8.2) gm/dl Albumin (3.4-5.0) gm/dl Globulin (2.5-4.0) gm/dl Albumin/Globulin Ratio (0.9-2) COVID-19 Eval Order SARS-CoV-2 (PCR) Diagnostic Findings Abdomen/Pelvis CT 08/24/20 14:41 CT SCAN OF THE ABDOMEN AND PELVIS WITHOUT CONTRAST CLINICAL HISTORY: suprapubic pain COMPARISON STUDY: 12/06/2019 TECHNIQUE: CT scan of the abdomen and pelvis was performed from the lung bases to the proximal femurs. Images are reviewed in the axial, sagittal, and coronal planes. IV contrast was not administered for this examination. A dose lowering technique was utilized adhering to the principles of ALARA. CT DOSE: 385.75 mGy.cm FINDINGS: Lower chest: The heart is enlarged. There is mild basilar atelectatic changes. Liver: The unenhanced liver is normal in size, contour, and attenuation. There is no intrahepatic biliary ductal dilatation. Gallbladder: Mildly distended. No calculi are visualized. Spleen: Normal in size and attenuation. Pancreas: Unremarkable. Adrenal glands: Unremarkable. Kidneys: There are multiple bilateral renal masses, likely representing a combination of cysts and hyperdense cysts. These are suboptimally evaluated on a noncontrast study. Several the cysts appear complex with borderline thickened angel. There are also a few punctate wall calcifications. There is a nonobstructing 3 mm right renal calculus. No ureteral or bladder calculi are visualized. Bowel: There are no transition zones to indicate bowel obstruction. The appendix appears normal. There is sigmoid diverticulosis. There is sigmoid wall thickening and infiltration of the perisigmoid fat consistent with acute diverticulitis. There is evidence for a microperforation as several gas bubbles are visualized within the adjacent mesentery. There are no fluid collections to indicate a drainable abscess. Peritoneum: There is no significant ascites. There is mild presacral edema. Vasculature: The abdominal aorta is normal in course and caliber. Adenopathy: None. Pelvic viscera: There is mild prostatomegaly Skeletal structures: No destructive osseous lesions are seen. IMPRESSION: 1. CT findings indicative of acute sigmoid diverticulitis with a micr operforation as evidenced by small air bubbles within the adjacent mesentery. There is no evidence of drainable abscess. 2. Other findings as described above. ACT 112: Negative or not required by law. Electronically signed by: Nato Dupree M.D. 08/24/2020 3:26 PM Chest X-Ray 08/24/20 14:43 XR chest 1V portable HISTORY: Generalized abdominal pain. COMPARISON: Chest 07/18/2018. FINDINGS: The lungs are clear. Cardiac silhouette is normal in size. No pleural effusions. No pneumothorax. IMPRESSION: No acute process. ACT 112: Negative or not required by law. Electronically signed by: Sher Mendes M.D. 08/24/2020 3:04 PM Code Status & VTE Plan Code Status DNR/DNI VTE Prophylaxis Plan VTE Prophylaxis will be ordered: Yes PG Care Time/CCT Total # of Minutes Spent Total Time Spent with Patient: Total time spent is greater than 50% in coordination of care (as documented) at patient's floor/unit and/or counseling patient: Coding Level of Care Code 82892 Initial Inpt Care Lvl 3 Diagnoses Anemia D64.9 Arteriosclerotic cardiovascular disease I25.10 ESRD (end stage renal disease) on dialysis N18.6; Z99.2 Gout M10.9 Obstructive sleep apnea G47.33 Renal cysts, acquired, bilateral N28.1 Thrombocytopenia D69.6 Tremor R25.1 Vitamin D deficiency E55.9 Hypertension I10 Hypertension type: unspecified Hyperlipidemia E78.5 Hyperlipidemia type: unspecified GERD (gastroesophageal reflux disease) K21.9 Acute diverticulitis K57.92 DVT prophylaxis Z29.9 (1) Hyperlipidemia Hyperlipidemia type: unspecified Qualified Code(s): E78.5 - Hyperlipidemia, unspecified (2) Hypertension Hypertension type: unspecified Qualified Code(s): I10 - Essential (primary) hypertension
[2020-08-24] MEDS ORDERED: HYDROmorphone INJ 0.5 MG/0.5 ML SYR IV PRN (20:07)
[2020-08-24] MEDS ORDERED: ONDANSETRON INJ 2 MG/ML 2 ML VIAL IV PRN (20:07)
--- NOTE | 2020-08-24 20:15 | Nephrology Consultation ---
Date of Consultation August 24, 2020 Assessment & Plan (1) ESRD (end stage renal disease) on dialysis: Outpatient Rx TTS 4hrs 180 optiflux, 350/800. EDW 73.6 kg. Completed 3/4 of treatment today. BP and volume status are currently acceptable. Electrolytes controlled. No emergent indication for dialysis. No anticipate need in next 24 hours. Renal profile will be repeated tomorrow AM. Medications are appropriate for kidney function. AVF with good thrill and bruit. (2) Anemia: Chronic, stable. Maintained on venofer 50 mg weekly with HD. Has not required HEAVENLY therapy. History of Present Illness Reason for Consultation: ESRD on HD Requesting Physician: Kerry Cummings MD Attending Physician: Kerry Cummings MD History of Present Illness Mr. Rj Aguilar is an 80 year-old male with ESRD being admitted to [facility] through the ER for acute sigmoid diverticulitis. He was referred for evaluation from the dialysis unit earlier today. Mr. Aguilar presented to the outpatient HD unit for his scheduled treatment with lower abdominal pain and fevers. Dialysis was stopped 1 hour early due to symptoms. Net UF was 0.6 L. He left the unit at 74 kg. EDW has been 73.6 kg. In the ER, he was found to have CT of abdomen/pelvi s with acute sigmoid diverticulitis with microperforation but no drainable abscess. He was admitted for observation and IV antibiotics. I discussed the patient's condition with Dr. Cummings earlier today. The patient was then seen and evaluated in the ER with his at the bedside. ESRD has been attributed to microvascular disease and hypertensive nephrosclerosis. He started HD in May under the care of Dr. Wilcox. Rj dialyzes at [facility] on a TTS schedule. Records from the dialysis facility were reviewed today. No biopsy. Rj had a left wrist AVF placed by Dr. Ren in 2018. The fistula has been difficult to cannulate but functioning well with adequate Qb. Clearances have been at goal. Rj has been tolerating HD well without complications with treatments. Medical history is also notable for CAD s/p PCI with ANGELITA to diagonal, RCA in 2010, HTN, anemia of chronic renal disease not requiring HEAVENLY therapy, secondary hyperparathyroidism, hyperlipidemia, GERD, BPH, renal cysts, vitamin D deficiency, essential tremor, neuropathy, JOHN, and former smoker. . Allergies Allergy/AdvReac Type Severity Reaction Status Date / Time Sulfa (Sulfonamide Allergy Unknown "DON'T Verified 08/24/20 15:34 Antibiotics) REMEMBER, IT WAS SO LONG AGO" Home Medications Medication Instructions Recorded Confirmed Type melatonin 10 mg capsule 10 mg PO HS PRN 11/02/18 08/24/20 History atorvastatin 80 mg tablet 80 mg PO HS #90 tab 09/06/19 08/24/20 Rx furosemide 40 mg tablet 20 mg PO DAILY PRN #30 tab 11/09/19 08/24/20 Rx allopurinol 100 mg tablet 100 mg PO QAM #90 tab 02/17/20 08/24/20 Rx vitamin B complex and vitamin C 1 cap PO DAILY #90 cap 05/08/20 08/24/20 Rx no.20-folic acid 1 mg capsule (Renal Caps) amlodipine 5 mg tablet 5 mg PO QAM #90 tab 05/10/20 08/24/20 Rx tadalafil 5 mg tablet 5 mg PO DAILY PRN #20 tab 08/23/20 08/24/20 Rx aspirin 81 mg tablet,delayed 81 mg PO HS 08/24/20 08/24/20 History release Patient History Medical History BPH w/o urinary obs/LUTS Chronic kidney disease, stage 4 (severe) FOLLOWS W/ DR. WILCOX ESRD (end stage renal disease) on dialysis GERD (gastroesophageal reflux disease) Hearing deficit BL AVINA Hyperlipidemia Hypertension Renal cysts, acquired, bilateral Vitamin D deficiency Surgical History H/O tooth extraction History of cardiac cath 7 YEARS AGO - - HOSPITAL IN [place] - 2 STENTS PLACED - FOLLOWS W/ DR. ALFARO 6 YEARS AGO - REASON? - [facility] - NO STENTS/ANGIOPLASTY History of cataract surgery bilateral History of colonoscopy W/ POLYPECTOMY History of heart artery stent History of tonsillectomy Status post creation of arteriovenous fistula (~04/2017) Left wrist; Simoni Family History Other Alzheimer disease Breast cancer Congestive heart failure Prostate cancer Social History Smoking Status: Never smoker Cigarettes Per Day: 1 pack every other day; Second Hand Exposure: No; Hx Alcohol Use: Yes Hx Substance Use: No Preferred Language: Yi Communication Ability: Effective Small Engine Specialist Required: No Beliefs That Will Affect Care: None Current Living Situation: Spouse Feels Safe at Home: Yes Assistive Devices: Denture - Upper, Denture - Lower and Glasses Review of Systems Constitutional: no weight loss, no weight gain and no problem reported Eyes: no problem reported Ear, Nose, Mouth, Throat: no problem reported Respiratory: no problem reported Cardiovascular: no problem reported Gastrointestinal: + abdominal pain, + bloating and + nausea; no vomiting Musculoskeletal: no problem reported Integumentary: no problem reported Neurologic: no problem reported Psychiatric: no problem reported Endocrine: no problem reported Hematologic / Lymphatic: no problem reported Physical Exam Constitutional: well developed; no acute distress Eyes: no scleral abnormality and no corneal abnormality ENMT: Mouth: no oral mucosal abnormality and oral mucous membranes not dry Neck: normal visual inspection and trachea midline Respiratory: normal respiratory effort Auscultation: lungs clear to auscultation bilaterally Cardiovascular: Rate/Rhythm: regular rate Heart Sounds: normal S1 and normal S2 Extremities: + AV fistula; no edema Musculoskeletal: Extremities: no cyanosis and no clubbing Skin: normal turgor; no lesions Neurologic: Motor/Sensory: no tremor and no asterixis Psychiatric: Orientation: alert and oriented x 3 Results & Data ([facility]) Vital Signs (Past 12 Hours) Vital Signs Temp Pulse Resp BP Pulse Ox 08/24/20 19:44 37.1 C 63 20 118/83 98 08/24/20 19:00 64 23 110/56 L 94 08/24/20 18:30 66 22 107/59 L 95 08/24/20 18:00 66 18 100/58 L 93 08/24/20 17:30 67 19 112/54 L 94 08/24/20 17:00 70 20 112/56 L 93 08/24/20 16:30 70 22 112/59 L 92 08/24/20 16:00 73 21 124/59 L 91 08/24/20 15:30 72 26 H 114/59 L 91 08/24/20 13:41 37.5 C 77 20 133/61 95 Laboratory Results Laboratory Results - last 24 hr 08/24/20 08/24/20 08/24/20 14:09 14:09 16:42 WBC 11.28 H RBC 3.58 L Hgb 11.6 L Hct 34.8 L MCV 97.2 MCH 32.4 MCHC 33.3 RDW Std Deviation 52.3 H RDW Coeff of Hermse 14.7 H Plt Count 89 L MPV 11.3 H Immature Gran % (Auto) 0.2 Neut % (Auto) 82.3 Lymph % (Auto) 6.6 Sharp % (Auto) 10.7 Eos % (Auto) 0.1 Baso % (Auto) 0.1 Neut # (Auto) 9.29 H Lymph # (Auto) 0.74 L Sharp # (Auto) 1.21 H Eos # (Auto) 0.01 Baso # (Auto) 0.01 Immature Gran # (Auto) 0.02 Platelet Estimate Decreased L Sodium 135 L Potassium 4.0 Chloride 99 Carbon Dioxide 30 Anion Gap 6.0 BUN 27 H Creatinine 3.97 H Est Cr Clr Drug Dosing Not Reportable Est GFR ( Amer) 15.3 Est GFR (Non-Af Amer) 13.2 BUN/Creatinine Ratio 6.8 L Glucose 108 H Calcium 8.7 Phosphorus 2.5 Magnesium 1.9 Total Bilirubin 0.6 AST 18 ALT 27 Alkaline Phosphatase 66 Troponin I < 0.015 Total Protein 7.5 Albumin 3.3 L Globulin 4.2 H Albumin/Globulin Ratio 0.8 L COVID-19 Eval Order Covid19 at [facility] SARS-CoV-2 (PCR) 08/24/20 16:42 WBC RBC Hgb Hct MCV MCH MCHC RDW Std Deviation RDW Coeff of Hermes Plt Count MPV Immature Gran % (Auto) Neut % (Auto) Lymph % (Auto) Sharp % (Auto) Eos % (Auto) Baso % (Auto) Neut # (Auto) Lymph # (Auto) Sharp # (Auto) Eos # (Auto) Baso # (Auto) Immature Gran # (Auto) Platelet Estimate Sodium Potassium Chloride Carbon Dioxide Anion Gap BUN Creatinine Est Cr Clr Drug Dosing Est GFR ( Amer) Est GFR (Non-Af Amer) BUN/Creatinine Ratio Glucose Calcium Phosphorus Magnesium Total Bilirubin AST ALT Alkaline Phosphatase Troponin I Total Protein Albumin Globulin Albumin/Globulin Ratio COVID-19 Eval Order SARS-CoV-2 (PCR) NEGATIVE PG Care Time/CCT Total # of Minutes Spent Total Time Spent with Patient: Total time spent is greater than 50% in coordination of care (as documented) at patient's floor/unit and/or counseling patient: Coding Level of Care Code 86932 Inpt Consult Level 3 Diagnoses ESRD (end stage renal disease) on dialysis N18.6; Z99.2 Anemia D64.9
[2020-08-24] MEDS ORDERED: MELATONIN 3 MG TAB PO PRN (20:17)
[2020-08-24] MEDS ORDERED: SODIUM CHLORIDE 0.9% 1000ML 1,000 ML IV SCH (20:30)
[2020-08-24] MEDS ORDERED: PIPERACILLIN/TAZOBACTAM 3.375 GM in DEXTROSE 5% 100 ML IV SCH (21:00)
[2020-08-24] MEDS: ACETAMINOPHEN 325 MG TAB PO PRN (21:37)
[2020-08-24] MEDS: ASPIRIN 81 MG ECTAB PO SCH (21:37)
[2020-08-24] MEDS: ATORVASTATIN 40 MG TAB PO SCH (21:37)
[2020-08-24] MEDS: PIPERACILLIN/TAZOBACTAM 3.375 GM in DEXTROSE 5% 100 ML IV SCH (23:12)
[2020-08-25 08:30] LABS: Hematocrit (blood only) 32.3 % (42-52); Hemoglobin 10.4 g/dL (14.0-18.0); Mean Corpuscular Hemoglobin 31.7 pg (25-34); Mean Corpuscular Hgb Conc 32.2 g/dL (32-36); Mean Corpuscular Volume 98.5 fL (80-100); RDW Coefficient of Variation 14.8 % (11.5-14.5); RDW Standard Deviation 53.3 fL (36.4-46.3); Red Blood Count 3.28 M/uL (4.7-6.1); White Blood Count 11.04 K/uL (4.8-10.8)
[2020-08-25 08:39] LABS: Mean Platelet Volume 10.6 fL (7.4-10.4); Platelet Count 76 K/uL (130-400)
[2020-08-25 08:50] LABS: Basophils # (auto) 0.01 K/uL (0-0.2); Basophils % (auto) 0.1 %; Eosinophils # (auto) 0.02 K/uL (0-0.5); Eosinophils % (auto) 0.2 %; Immature Granulocytes # (auto) 0.02 K/uL (0.00-0.02); Immature Granulocytes % (auto) 0.2 %; Lymphocytes # (auto) 1.27 K/uL (1.2-3.4); Lymphocytes % (auto) 11.5 %; Monocytes # (auto) 0.95 K/uL (0.11-0.59); Monocytes % (auto) 8.6 %; Neutrophils # (auto) 8.77 K/uL (1.4-6.5); Neutrophils % (auto) 79.4 %
[2020-08-25 09:28] LABS: Albumin Globulin Ratio 0.7 (0.9-2); Albumin Level 2.8 gm/dl (3.4-5.0); BUN Creatinine Ratio 7.6 (10-20); Bilirubin,Total 0.6 mg/dl (0.2-1); Calcium 8.7 mg/dl (8.5-10.1); Creatinine Clr Calc Pharmacy 11.2 ml/min; Est GFR (African American) 10.6 ml/min; Est GFR (Non-African American) 9.1 ml/min; Globulin 3.9 gm/dl (2.5-4.0); Potassium 4.5 mmol/L (3.5-5.1); Total Protein 6.7 gm/dl (6.4-8.2)
[2020-08-25] MEDS: NEPHROCAPS PO SCH (09:44)
[2020-08-25] MEDS: allopurinoL 100 MG TAB PO SCH (09:44)
[2020-08-25] MEDS: amLODIPine BESYLATE 5 MG TAB PO SCH (09:44)
[2020-08-25] MEDS: ACETAMINOPHEN 325 MG TAB PO PRN (10:02)
--- NOTE | 2020-08-25 10:46 | Nephrology Progress Note ---
Date of Service August 25, 2020 Assessment & Plan (1) ESRD (end stage renal disease) on dialysis: Plan: Outpatient Rx TTS 4hrs 180 optiflux, 350/800. EDW 73.6 kg. Completed 3/4 of treatment yesterday. BP and volume status are currently acceptable. Electrolytes controlled. No emergent indication for dialysis. Plan next treatment tomorrow per TTS schedule. Medications are appropriate for kidney function. AVF with good thrill and bruit. (2) Anemia: Plan: Chronic, stable. Maintained on venofer 50 mg weekly with HD. Has not required HEAVENLY therapy. Admission and Anticipated Discharge Date Admission Date: August 24, 2020 Subjective No acute events overnight. Rj continues to report some bloating and colicky abdominal discomfort. No fevers or chills. He is breathing comfortably. Review of Systems Constitutional: no problem reported Eyes: no problem reported Ear, Nose, Mouth, Throat: no problem reported Respiratory: no problem reported Cardiovascular: no problem reported Gastrointestinal: + abdominal pain, + bloating and + nausea; no vomiting Musculoskeletal: no problem reported Integumentary: no problem reported Neurologic: no problem reported Psychiatric: no problem reported Endocrine: no problem reported Hematologic / Lymphatic: no problem reported Physical Exam Constitutional: well developed; no acute distress Eyes: no scleral abnormality and no corneal abnormality ENMT: Mouth: no oral mucosal abnormality and oral mucous membranes not dry Neck: normal visual inspection and trachea midline Respiratory: normal respiratory effort Auscultation: lungs clear to auscultation bilaterally Cardiovascular: Rate/Rhythm: regular rate Heart Sounds: normal S1 and normal S2 Extremities: + AV fistula; no edema Musculoskeletal: Extremities: no cyanosis and no clubbing Skin: normal turgor; no lesions Neurologic: Motor/Sensory: no tremor and no asterixis Psychiatric: Orientation: alert and oriented x 3 Results & Data ([facility]) Vital Signs (Past 12 Hours) Vital Signs Temp Pulse Resp BP Pulse Ox 08/25/20 07:35 37.5 C 72 16 113/55 L 94 Laboratory Results Laboratory Results - last 24 hr 08/24/20 08/24/20 08/24/20 14:09 14:09 16:42 WBC 11.28 H RBC 3.58 L Hgb 11.6 L Hct 34.8 L MCV 97.2 MCH 32.4 MCHC 33.3 RDW Std Deviation 52.3 H RDW Coeff of Hermes 14.7 H Plt Count 89 L MPV 11.3 H Immature Gran % (Auto) 0.2 Neut % (Auto) 82.3 Lymph % (Auto) 6.6 [place] % (Auto) 10.7 Eos % (Auto) 0.1 Baso % (Auto) 0.1 Neut # (Auto) 9.29 H Lymph # (Auto) 0.74 L [place] # (Auto) 1.21 H Eos # (Auto) 0.01 Baso # (Auto) 0.01 Immature Gran # (Auto) 0.02 Platelet Estimate Decreased L Sodium 135 L Potassium 4.0 Chloride 99 Carbon Dioxide 30 Anion Gap 6.0 BUN 27 H Creatinine 3.97 H Est Cr Clr Drug Dosing Not Reportable Est GFR ( Amer) 15.3 Est GFR (Non-Af Amer) 13.2 BUN/Creatinine Ratio 6.8 L Glucose 108 H Calcium 8.7 Phosphorus 2.5 Magnesium 1.9 Total Bilirubin 0.6 AST 18 ALT 27 Alkaline Phosphatase 66 Troponin I < 0.015 Total Protein 7.5 Albumin 3.3 L Globulin 4.2 H Albumin/Globulin Ratio 0.8 L COVID-19 Eval Order Covid19 at [facility] SARS-CoV-2 (PCR) 08/24/20 08/25/20 08/25/20 16:42 08:18 08:18 WBC 11.04 H RBC 3.28 L Hgb 10.4 L Hct 32.3 L MCV 98.5 MCH 31.7 MCHC 32.2 RDW Std Deviation 53.3 H RDW Coeff of Hermes 14.8 H Plt Count 76 L MPV 10.6 H Immature Gran % (Auto) 0.2 Neut % (Auto) 79.4 Lymph % (Auto) 11.5 [place] % (Auto) 8.6 Eos % (Auto) 0.2 Baso % (Auto) 0.1 Neut # (Auto) 8.77 H Lymph # (Auto) 1.27 [place] # (Auto) 0.95 H Eos # (Auto) 0.02 Baso # (Auto) 0.01 Immature Gran # (Auto) 0.02 Platelet Estimate Sodium 136 Potassium 4.5 Chloride 100 Carbon Dioxide 29 Anion Gap 7.0 BUN 40 H Creatinine 5.38 H* D Est Cr Clr Drug Dosing 11.2 Est GFR ( Amer) 10.6 Est GFR (Non-Af Amer) 9.1 BUN/Creatinine Ratio 7.6 L Glucose 92 Calcium 8.7 Phosphorus Magnesium 2.0 Total Bilirubin 0.6 AST 13 L ALT 21 Alkaline Phosphatase 55 Troponin I Total Protein 6.7 Albumin 2.8 L Globulin 3.9 Albumin/Globulin Ratio 0.7 L COVID-19 Eval Order SARS-CoV-2 (PCR) NEGATIVE PG Care Time/CCT Total # of Minutes Spent Total Time Spent with Patient: Total time spent is greater than 50% in coordination of care (as documented) at patient's floor/unit and/or counseling patient: Coding Level of Care Code 97245 Subseq Hosp Care Lvl 3 Diagnoses ESRD (end stage renal disease) on dialysis N18.6; Z99.2 Anemia D64.9
[2020-08-25] MEDS: PIPERACILLIN/TAZOBACTAM 3.375 GM in DEXTROSE 5% 100 ML IV SCH ×2 (12:39→23:18)
--- NOTE | 2020-08-25 14:31 | Hospitalist Progress Note ---
Date of Service August 25, 2020 Assessment & Plan (1) Acute diverticulitis: Plan: Presents with acute sigmoid diverticulitis with microperforation Afebrile with mild leukocytosis and fairly significant abdominal pain which is now improving Last colonoscopy was 2014 and showed 5 sessile polyps in the descending colon, transverse colon and at hepatic flexure that were removed as well as a 3 mm polyp at the hepatic flexure that was sessile. Also found to have multiple small mouth diverticula in the sigmoid and descending colon. Biopsies proved to all be tubular adenomas. There is no evidence of sepsis at this time and is hemodynamically stable Pain is improving, leukocytosis persists -Okay to advance to clear liquids today -Continue IV Zosyn and plan would be to switch to p.o. Cipro and Flagyl upon discharge-Cipro renally dosed to be 500 mg once daily to be given after dialysis on dialysis days -DC maintenance IV fluids -Follow CBC, CMP, magnesium in the morning -Pain control with Tylenol as needed and IV Dilaudid as needed for severe pain (2) Anemia: Plan: Very mild with hemoglobin 10.4, normocytic Likely anemia of chronic kidney disease Continue Nephrocaps (3) Arteriosclerotic cardiovascular disease: Plan: With history of ANGELITA x2 Continue home aspirin, atorvastatin He is not on beta-blockers due to history of bradycardia No chest pain at this time troponins negative (4) ESRD (end stage renal disease) on dialysis: Plan: Tolerated 3 hours of dialysis on the day of admission/08/24 Chemistry panel is acceptable although creatinine is rising He still does make some urine Consult nephrology-plan for dialysis on normal dialysis days (5) Gout: Plan: Continue home allopurinol No acute issues (6) Obstructive sleep apnea: Plan: Noted Unclear if on CPAP (7) Renal cysts, acquired, bilateral: Plan: Follows with urology No acute issues (8) Thrombocytopenia: Plan: Platelets low at 70s-80s This is stable from previous and he has had low platelets for at least the last year Patient was unaware that he had thrombocytopenia and has not had further work-up for this No history of liver disease and liver and spleen appear normal in size on imaging Recommend follow-up with hematology as an outpatient Follow CBC in the morning (9) Tremor: Plan: Has essential tremor diagnosed by neurology Is not on medication for this (10) Vitamin D deficiency: Plan: Not currently on supplementation for this Follow-up with nephrology (11) Hypertension: Plan: Blood pressures are acceptable Continue home amlodipine (12) Hyperlipidemia: Plan: Continue statin (13) GERD (gastroesophageal reflux disease): Plan: No current medications used for this (14) DVT prophylaxis: Plan: SCDs Disposition-continued stay on medical/surgical floor likely through Friday DNR/DNI as discussed with patient with his at the bedside Admission and Anticipated Discharge Date Admission Date: August 24, 2020 Subjective Patient feels improved from yesterday. Pain is still present but less than yesterday in the left lower quadrant and suprapubic regions. No nausea or vomiting. He is feeling hungry. No fevers overnight. No chest pain or shortness of breath, no lightheadedness. Review of Systems Review of Systems: All systems reviewed & are unremarkable except as noted in HPI & below Physical Exam Constitutional: WD/WN, vitals as above Eyes: + anicteric sclerae ENMT: external ear and nose normal, oropharynx normal Neck: trachea midline, no thyromegaly Respiratory: normal respiratory effort, lungs clear to auscultation Cardiovascular: RRR, no murmur, no edema Extremities: + AV fistula (left forearm) Chest (Breasts): Chest: normal inspection of chest Gastrointestinal (Abdomen): Inspection/Auscultation: abdomen normal to inspection and normal bowel sounds; abdomen not distended Percussion/Palpati on: + abdomen tender (In left lower quadrant suprapubic area without guarding or rebound) and abdomen soft Musculoskeletal: Extremities: extremities normal to inspection; no cyanosis and no clubbing Skin: no rashes, warm and dry Neurologic: moves all extremities and awake; no focal motor deficits Psychiatric: A+Ox3, euthymic affect Lymphatic: no lymphedema Results & Data Results & Data ([facility]) Vital Signs (Past 12 Hours) Vital Signs Temp Pulse Resp BP Pulse Ox 08/25/20 07:35 37.5 C 72 16 113/55 L 94 Laboratory Results 08/25/20 08:18 08/25/20 08:18 PG Care Time/CCT Total # of Minutes Spent Total Time Spent with Patient: Total time spent is greater than 50% in coordination of care (as documented) at patient's floor/unit and/or counseling patient: Coding Level of Care Code 24891 Subseq Hosp Care Lvl 2 Diagnoses Acute diverticulitis K57.92 Anemia D64.9 Arteriosclerotic cardiovascular disease I25.10 ESRD (end stage renal disease) on dialysis N18.6; Z99.2 Gout M10.9 Obstructive sleep apnea G47.33 Renal cysts, acquired, bilateral N28.1 Thrombocytopenia D69.6 Tremor R25.1 Vitamin D deficiency E55.9 Hypertension I10 Hypertension type: unspecified Hyperlipidemia E78.5 Hyperlipidemia type: unspecified GERD (gastroesophageal reflux disease) K21.9 DVT prophylaxis Z29.9 (1) Hypertension Hypertension type: unspecified Qualified Code(s): I10 - Essential (primary) hypertension (2) Hyperlipidemia Hyperlipidemia type: unspecified Qualified Code(s): E78.5 - Hyperlipidemia, unspecified
[2020-08-25] MEDS: ASPIRIN 81 MG ECTAB PO SCH (20:44)
[2020-08-25] MEDS: ATORVASTATIN 40 MG TAB PO SCH (20:45)
[2020-08-26 06:28] LABS: Hematocrit (blood only) 30.4 % (42-52); Mean Corpuscular Hemoglobin 31.5 pg (25-34); Mean Corpuscular Hgb Conc 32.9 g/dL (32-36); Mean Corpuscular Volume 95.9 fL (80-100); RDW Coefficient of Variation 14.7 % (11.5-14.5); RDW Standard Deviation 51.8 fL (36.4-46.3); Red Blood Count 3.17 M/uL (4.7-6.1); White Blood Count 9.26 K/uL (4.8-10.8)
[2020-08-26 06:49] LABS: Mean Platelet Volume 10.9 fL (7.4-10.4); Platelet Count 90 K/uL (130-400)
[2020-08-26 07:10] LABS: Basophils # (auto) 0.01 K/uL (0-0.2); Basophils % (auto) 0.1 %; Eosinophils # (auto) 0.12 K/uL (0-0.5); Eosinophils % (auto) 1.3 %; Immature Granulocytes # (auto) 0.02 K/uL (0.00-0.02); Immature Granulocytes % (auto) 0.2 %; Lymphocytes # (auto) 2.03 K/uL (1.2-3.4); Lymphocytes % (auto) 21.9 %; Monocytes # (auto) 0.81 K/uL (0.11-0.59); Monocytes % (auto) 8.7 %; Neutrophils # (auto) 6.27 K/uL (1.4-6.5); Neutrophils % (auto) 67.8 %
[2020-08-26 07:15] LABS: BUN Creatinine Ratio 8.1 (10-20); Calcium 8.6 mg/dl (8.5-10.1); Creatinine Clr Calc Pharmacy 9.2 ml/min; Est GFR (African American) 8.4 ml/min; Est GFR (Non-African American) 7.3 ml/min; Magnesium 2.2 mg/dl (1.8-2.4); Potassium 3.9 mmol/L (3.5-5.1)
[2020-08-26] MEDS: amLODIPine BESYLATE 5 MG TAB PO SCH (08:51)
[2020-08-26] MEDS: allopurinoL 100 MG TAB PO SCH (08:51)
[2020-08-26] MEDS: NEPHROCAPS PO SCH ×2 (08:51→08:53)
--- NOTE | 2020-08-26 12:28 | Nephrology Progress Note ---
Date of Service August 26, 2020 Assessment & Plan (1) ESRD (end stage renal disease) on dialysis: Plan: * Outpatient Rx: TTS 4hrs 180 optiflux, 350/800. EDW 73.6 kg * Will provide HD today according to outpatient orders. HD RN notified * AVF with good thrill and bruit. (2) Anemia: Plan: * Chronic, stable. Maintained on venofer 50 mg weekly with HD. Has not required HEAVENLY therapy. (3) Diverticulitis of colon with perforation: Plan: * Clinically improved. On IV Zosyn Admission and Anticipated Discharge Date Admission Date: August 24, 2020 Subjective Mr. Aguilar was seen & examined in his hospital room this morning. He reports that his abdominal pain has improved and he is able to tolerate a liquid diet. Review of Systems Constitutional: no fever Eyes: no problem reported Ear, Nose, Mouth, Throat: no problem reported Respiratory: no cough and no dyspnea Cardiovascular: no chest pain, no palpitations and no edema Gastrointestinal: no abdominal pain, no nausea and no diarrhea/loose stools Genitourinary: no dysuria, no urinary hesitancy or no hematuria Musculoskeletal: no back pain Integumentary: no rash Neurologic: no falls, no dizziness and no confusion Physical Exam Constitutional: not in distress Eyes: PERRL, conjunctivae normal, anicteric sclerae ENMT: external ear and nose normal, oropharynx normal Neck: trachea midline, no thyromegaly Respiratory: normal respiratory effort, lungs clear to auscultation Cardiovascular: RRR, no murmur, no edema Gastrointestinal (Abdomen): normal bowel sounds, soft, nontender, no hepatosplenomegaly Musculoskeletal: Extremities: no cyanosis Skin: no rashes, warm and dry Neurologic: awake; not confused Results & Data ([facility]) Vital Signs (Past 12 Hours) Vital Signs Temp Pulse Pulse Pulse Resp BP BP 08/26/20 11:40 55 L 134/77 08/26/20 11:20 52 L 135/64 08/26/20 11:00 45 L 146/91 H 08/26/20 10:40 51 L 127/75 08/26/20 10:20 58 L 90/66 L 08/26/20 10:00 53 L 119/69 08/26/20 09:43 56 L 122/68 07/17/21 09:33 36.7 C 58 L 08/26/20 07:46 36.8 C 51 L 16 112/47 L Pulse Ox 08/26/20 11:40 08/26/20 11:20 08/26/20 11:00 08/26/20 10:40 08/26/20 10:20 08/26/20 10:00 08/26/20 09:43 08/26/20 09:33 08/26/20 07:46 96 Laboratory Results Laboratory Tests 08/26/20 08/26/20 06:03 06:03 WBC 9.26 Hgb 10.0 L Hct 30.4 L Plt Count 90 L Sodium 135 L Potassium 3.9 Chloride 101 Carbon Dioxide 29 BUN 53 H Creatinine 6.50 H* D Glucose 95 Calcium 8.6 Magnesium 2.2 PG Care Time/CCT Total # of Minutes Spent Total Time Spent with Patient: Total time spent is greater than 50% in coordination of care (as documented) at patient's floor/unit and/or counseling patient: Coding Level of Care Code 29507 Subseq Hosp Care Lvl 3 Diagnoses ESRD (end stage renal disease) on dialysis N18.6; Z99.2 Anemia D64.9 Diverticulitis of colon with perforation K57.20
--- NOTE | 2020-08-26 12:46 | Hospitalist Progress Note ---
Date of Service August 26, 2020 Assessment & Plan (1) Acute diverticulitis: Plan: Presents with acute sigmoid diverticulitis with microperforation Afebrile with mild leukocytosis and fairly significant abdominal pain which is now greatly improved Leukocytosis resolved, much less tender on exam in abdomen Last colonoscopy was 2014 and showed 5 sessile polyps in the descending colon, transverse colon and at hepatic flexure that were removed as well as a 3 mm polyp at the hepatic flexure that was sessile. Also found to have multiple small mouth diverticula in the sigmoid and descending colon. Biopsies proved to all be tubular adenomas. There is no evidence of sepsis at this time and is hemodynamically stable -Okay to advance to full liquids today -Continue IV Zosyn and plan would be to switch to p.o. Cipro and Flagyl upon discharge-Cipro renally dosed to be 500 mg once daily to be given after dialysis on dialysis days -Follow CBC, BMP, magnesium in the morning -Pain control with Tylenol as needed and IV Dilaudid as needed for severe pain -IVFs have since been discontinued after yrn clears and is a dialysis patient (2) Anemia: Plan: Very mild with hemoglobin 10.4, normocytic Likely anemia of chronic kidney disease Continue Nephrocaps -check B12, folate as well receives Venofer at HD and has not needed Epo (3) Arteriosclerotic cardiovascular disease: Plan: With history of ANGELITA x2 Continue home aspirin, atorvastatin He is not on beta-blockers due to history of bradycardia No chest pain at this time troponins negative (4) ESRD (end stage renal disease) on dialysis: Plan: Tolerated 3 hours of dialysis on the day of admission/08/24 Receiving HD on 08/26 He still does make some urine Consult nephrology-plan for dialysis on normal dialysis days (5) Gout: Plan: Continue home allopurinol No acute issues (6) Obstructive sleep apnea: Plan: Noted Unclear if on CPAP (7) Renal cysts, acquired, bilateral: Plan: Follows with urology No acute issues (8) Thrombocytopenia: Plan: Platelets low at 70s-90s This is stable from previous and he has had low platelets for at least the last year Patient was unaware that he had thrombocytopenia and has not had further work-up for this No history of liver disease and liver and spleen appear normal in size on imaging -check B12 level tomorrow Recommend follow-up with hematology as an outpatient-he is moving to [place] later this month and will f/u there Follow CBC in the morning (9) Tremor: Plan: Has essential tremor diagnosed by neurology Is not on medication for this (10) Vitamin D deficiency: Plan: Not currently on supplementation for this Follow-up with nephrology (11) Hypertension: Plan: Blood pressures are acceptable Continue home amlodipine (12) Hyperlipidemia: Plan: Continue statin (13) GERD (gastroesophageal reflux disease): Plan: No current medications used for this (14) DVT prophylaxis: Plan: SCDs Disposition-continued stay on medical/surgical floor likely through Friday DNR/DNI as discussed with patient with his at the bedside Admission and Anticipated Discharge Date Admission Date: August 24, 2020 Subjective Feeling much better. Has less pain. Had a small BM this MA. Is at HD when I saw him Denies CP, SOB Afebrile Review of Systems Review of Systems: All systems reviewed & are unremarkable except as noted in HPI & below Physical Exam Constitutional: WD/WN, vitals as above Eyes: + anicteric sclerae Neck: trachea midline, no thyromegaly Respiratory: normal respiratory effort, lungs clear to auscultation Cardiovascular: RRR, no murmur, no edema Extremities: + AV fistula (left forearm) Chest (Breasts): Chest: normal inspection of chest Gastrointestinal (Abdomen): Inspection/Auscultation: abdomen normal to inspection and normal bowel sounds; abdomen not distended Percussion/Palpation: + abdomen tender (verminimal in suprapubic region) and abdomen soft; no guarding Musculoskeletal: Extremities: extremities normal to inspection; no cyanosis and no clubbing Skin: no rashes, warm and dry Neurologic: moves all extremities and awake; no focal motor deficits Psychiatric: A+Ox3, euthymic affect Lymphatic: no lymphedema Results & Data Results & Data ([facility]) Vital Signs (Past 12 Hours) Vital Signs Temp Pulse Pulse Pulse Resp BP BP 08/26/20 11:40 55 L 134/77 08/26/20 11:20 52 L 135/64 08/26/20 11:00 45 L 146/91 H 08/26/20 10:40 51 L 127/75 08/26/20 10:20 58 L 90/66 L 08/26/20 10:00 53 L 119/69 08/26/20 09:43 56 L 122/68 08/26/20 09:33 36.7 C 58 L 08/26/20 07:46 36.8 C 51 L 16 112/47 L Pulse Ox 08/26/20 11:40 08/26/20 11:20 08/26/20 11:00 08/26/20 10:40 08/26/20 10:20 08/26/20 10:00 08/26/20 09:43 08/26/20 09:33 08/26/20 07:46 96 Laboratory Results 08/26/20 08/26/20 Range/Units 06:03 06:03 WBC 9.26 (4.8-10.8) K/uL RBC 3.17 L (4.7-6.1) M/uL Hgb 10.0 L (14.0-18.0) g/dL Hct 30.4 L (42-52) % MCV 95.9 (80-100) fL MCH 31.5 (25-34) pg MCHC 32.9 (32-36) g/dL RDW Std Deviation 51.8 H (36.4-46.3) fL RDW Coeff of Hermes 14.7 H (11.5-14.5) % Plt Count 90 L (130-400) K/uL MPV 10.9 H (7.4-10.4) fL Immature Gran % (Auto) 0.2 % Neut % (Auto) 67.8 % Lymph % (Auto) 21.9 % [place] % (Auto) 8.7 % Eos % (Auto) 1.3 % Baso % (Auto) 0.1 % Neut # (Auto) 6.27 (1.4-6.5) K/uL Lymph # (Auto) 2.03 (1.2-3.4) K/uL [place] # (Auto) 0.81 H (0.11-0.59) K/uL Eos # (Auto) 0.12 (0-0.5) K/uL Baso # (Auto) 0.01 (0-0.2) K/uL Immature Gran # (Auto) 0.02 (0.00-0.02) K/uL Sodium 135 L (136-145) mmol/L Potassium 3.9 (3.5-5.1) mmol/L Chloride 101 (98-107) mmol/L Carbon Dioxide 29 (21-32) mmol/L Anion Gap 5.0 (3-11) BUN 53 H (7-18) mg/dl Creatinine 6.50 H* D (0.6-1.4) mg/dl Est Cr Clr Drug Dosing 9.2 ml/min Est GFR ( Amer) 8.4 ml/min Est GFR (Non-Af Amer) 7.3 ml/min BUN/Creatinine Ratio 8.1 L (10-20) Glucose 95 (70-99) mg/dl Calcium 8.6 (8.5-10.1) mg/dl Magnesium 2.2 (1.8-2.4) mg/dl PG Care Time/CCT Total # of Minutes Spent Total Time Spent with Patient: Total time spent is greater than 50% in coordination of care (as documented) at patient's floor/unit and/or counseling patient: Coding Level of Care Code 06551 Subseq Hosp Care Lvl 2 Diagnoses Acute diverticulitis K57.92 Anemia D64.9 Arteriosclerotic cardiovascular disease I25.10 ESRD (end stage renal disease) on dialysis N18.6; Z99.2 Gout M10.9 Obstructive sleep apnea G47.33 Renal cysts, acquired, bilateral N28.1 Thrombocytopenia D69.6 Tremor R25.1 Vitamin D deficiency E55.9 Hypertension I10 Hypertension type: unspecified Hyperlipidemia E78.5 Hyperlipidemia type: unspecified GERD (gastroesophageal reflux disease) K21.9 DVT prophylaxis Z29.9 (1) Hypertension Hypertension type: unspecified Qualified Code(s): I10 - Essential (primary) hypertension (2) Hyperlipidemia Hyperlipidemia type: unspecified Qualified Code(s): E78.5 - Hyperlipidemia, unspecified
[2020-08-26] MEDS: PIPERACILLIN/TAZOBACTAM 3.375 GM in DEXTROSE 5% 100 ML IV SCH (14:20)
[2020-08-26] MEDS: ASPIRIN 81 MG ECTAB PO SCH (20:58)
[2020-08-26] MEDS: ATORVASTATIN 40 MG TAB PO SCH (20:58)
[2020-08-27] MEDS: PIPERACILLIN/TAZOBACTAM 3.375 GM in DEXTROSE 5% 100 ML IV SCH ×2 (00:06→13:05)
[2020-08-27 05:42] LABS: Hematocrit (blood only) 30.7 % (42-52); Mean Corpuscular Hemoglobin 31.4 pg (25-34); Mean Corpuscular Hgb Conc 32.6 g/dL (32-36); Mean Corpuscular Volume 96.5 fL (80-100); Mean Platelet Volume 10.3 fL (7.4-10.4); Platelet Count 103 K/uL (130-400); RDW Coefficient of Variation 14.4 % (11.5-14.5); RDW Standard Deviation 51.6 fL (36.4-46.3); Red Blood Count 3.18 M/uL (4.7-6.1); White Blood Count 4.72 K/uL (4.8-10.8)
[2020-08-27 06:27] LABS: BUN Creatinine Ratio 5.8 (10-20); Calcium 8.5 mg/dl (8.5-10.1); Creatinine Clr Calc Pharmacy 13.5 ml/min; Est GFR (African American) 13.7 ml/min; Est GFR (Non-African American) 11.8 ml/min; Potassium 3.8 mmol/L (3.5-5.1)
[2020-08-27 07:00] LABS: Folate (Folic Acid) > 20.00 ng/ml (>5.38); Vitamin B12 468 pg/ml (193-986)
[2020-08-27] MEDS: amLODIPine BESYLATE 5 MG TAB PO SCH (08:47)
[2020-08-27] MEDS: NEPHROCAPS PO SCH (08:47)
[2020-08-27] MEDS: allopurinoL 100 MG TAB PO SCH (08:47)
--- NOTE | 2020-08-27 09:12 | Nephrology Progress Note ---
Date of Service August 27, 2020 Assessment & Plan (1) ESRD (end stage renal disease) on dialysis: Plan: * Outpatient Rx: TTS 4hrs 180 optiflux, 350/800. EDW 73.6 kg * No acute indication for HD today * If discharge is anticipated, please notify the [facility] HD unit to resume outpatient treatments ([phone]) * AVF with good thrill and bruit. (2) Anemia: Plan: * Chronic, stable. Maintained on venofer 50 mg weekly with HD. Has not required HEAVENLY therapy. (3) Diverticulitis of colon with perforation: Plan: * Clinically improved. On IV Zosyn Admission and Anticipated Discharge Date Admission Date: August 24, 2020 Subjective Mr. Aguilar was seen & examined in his hospital room this morning. He reports that his abdominal pain has resolved and he is tolerating a regular diet. Review of Systems Constitutional: no fever Eyes: no problem reported Ear, Nose, Mouth, Throat: no problem reported Respiratory: no cough and no dyspnea Cardiovascular: no chest pain, no palpitations and no edema Gastrointestinal: no abdominal pain, no nausea and no diarrhea/loose stools Genitourinary: no dysuria, no urinary hesitancy or no hematuria Musculoskeletal: no back pain Integumentary: no rash Neurologic: no falls, no dizziness and no confusion Psychiatric: no problem reported Endocrine: no problem reported Hematologic / Lymphatic: no problem reported Physical Exam Constitutional: not in distress Eyes: PERRL, conjunctivae normal, anicteric sclerae ENMT: external ear and nose normal, oropharynx normal Neck: trachea midline, no thyromegaly Respiratory: normal respiratory effort, lungs clear to auscultation Cardiovascular: RRR, no murmur, no edema Extremities: + AV fistula (+ bruit) Gastrointestinal (Abdomen): normal bowel sounds, soft, nontender, no hepatosplenomegaly Musculoskeletal: Extremities: no cyanosis Skin: no rashes, warm and dry Neurologic: awake; not confused Results & Data ([facility]) Vital Signs (Past 12 Hours) Vital Signs Temp Pulse Resp BP Pulse Ox 08/27/20 07:24 37 C 54 L 16 114/62 95 08/26/20 23:18 36.7 C 64 17 109/52 L 98 Laboratory Results Laboratory Tests 08/27/20 08/27/20 05:26 05:26 WBC 4.72 L Hgb 10.0 L Hct 30.7 L Plt Count 103 L Sodium 138 Potassium 3.8 Chloride 105 Carbon Dioxide 30 BUN 25 H D Creatinine 4.35 H D Glucose 93 PG Care Time/CCT Total # of Minutes Spent Total Time Spent with Patient: Total time spent is greater than 50% in coordination of care (as documented) at patient's floor/unit and/or counseling patient: Coding Level of Care Code 64250 Subseq Hosp Care Lvl 3 Diagnoses ESRD (end stage renal disease) on dialysis N18.6; Z99.2 Anemia D64.9 Diverticulitis of colon with perforation K57.20
--- NOTE | 2020-08-27 11:26 | Discharge Summary ---
Date of Service August 27, 2020 Admission HPI Per Admitting Provider This patient is an 80-year-old male with a history of ESRD on hemodialysis, CAD s/p PCI with ANGELITA to diagonal, RCA in 2010, HTN, anemia of chronic renal disease, secondary hyperparathyroidism, hyperlipidemia, GERD, BPH, renal cysts, vitamin D deficiency, essential tremor, neuropathy, JOHN, thrombocytopenia, and former smoker, who presents to the ER with worsening lower abdominal pain that started last night and was fairly significant.He has also been feeling generally weak, and with some nausea and dry heaves this morning. He attempted to go to hemodialysis today but could only stay for 1 hour and had to leave early because he was feeling poorly. His last bowel movement was 2 days ago. He then went to his PCPs office for an acute visit and was sent to the ER. He does still make some urine and made some last night. In the ER, he was found to have CT of abdomen/pelvis with acute sigmoid diverticulitis with microperforation but no drainable abscess. He had a mild leukocytosis at 11,Thrombocytopenia which is chronic, elevated creatinine consistent with ESRD, and normal LFTs. Covid-19 test was still pending at the time of admission. He was afebrile and had normal vital signs otherwise. He was given IV Tylenol, IV Pepcid, and 1 dose of IV Zosyn in the ER. He will be admitted for acute sigmoid diverticulitis with microperforation. Principal Diagnosis acute diverticulitis Discharge Exam Constitutional WD/WN, vitals as above Eyes + anicteric sclerae ENMT external ear and nose normal, oropharynx normal Neck trachea midline, no thyromegaly Respiratory normal respiratory effort, lungs clear to auscultation Cardiovascular RRR, no murmur, no edema Extremities: + AV fistula (left forearm) Chest (Breasts) Chest: normal inspection of chest Gastrointestinal (Abdomen) Inspection/Auscultation: abdomen normal to inspection and normal bowel sounds; abdomen not distended Percussion/Palpation: abdomen nontender Musculoskeletal Extremities: extremities normal to inspection; no cyanosis and no clubbing Skin no rashes, warm and dry Neurologic moves all extremities and awake; no focal motor deficits Psychiatric A+Ox3, euthymic affect Lymphatic no lymphedema Discharge Data Allergies Allergy/AdvReac Type Severity Reaction Status Date / Time Sulfa (Sulfonamide Allergy Unknown "DON'T Verified 08/24/20 15:34 Antibiotics) REMEMBER, IT WAS SO LONG AGO" Consultations 08/24/20 16:42 ED Decision to Admit Stat 08/24/20 18:33 Consult Nephrology Routine Ordered Studies 08/24/20 14:41 CT abd pelvis wo con Stat Abdomen/Pelvis CT 08/24/20 14:41 CT SCAN OF THE ABDOMEN AND PELVIS WITHOUT CONTRAST CLINICAL HISTORY: suprapubic pain COMPARISON STUDY: 12/06/2019 TECHNIQUE: CT scan of the abdomen and pelvis was performed from the lung bases to the proximal femurs. Images are reviewed in the axial, sagittal, and coronal planes. IV contrast was not administered for this examination. A dose lowering technique was utilized adhering to the principles of ALARA. CT DOSE: 385.75 mGy.cm FINDINGS: Lower chest: The heart is enlarged. There is mild basilar atelectatic changes. Liver: The unenhanced liver is normal in size, contour, and attenuation. There is no intrahepatic biliary ductal dilatation. Gallbladder: Mildly distended. No calculi are visualized. Spleen: Normal in size and attenuation. Pancreas: Unremarkable. Adrenal glands: Unremarkable. Kidneys: There are multiple bilateral renal masses, likely representing a combination of cysts and hyperdense cysts. These are suboptimally evaluated on a noncontrast study. Several the cysts appear complex with borderline thickened angel. There are also a few punctate wall calcifications. There is a nonobstructing 3 mm right renal calculus. No ureteral or bladder calculi are visualized. Bowel: There are no transition zones to indicate bowel obstruction. The appendix appears normal. There is sigmoid diverticulosis. There is sigmoid wall thickening and infiltration of the perisigmoid fat consistent with acute diverticulitis. There is evidence for a microperforation as several gas bubbles are visualized within the adjacent mesentery. There are no fluid collections to indicate a drainable abscess. Peritoneum: There is no significant ascites. There is mild presacral edema. Vasculature: The abdominal aorta is normal in course and caliber. Adenopathy: None. Pelvic viscera: There is mild prostatomegaly Skeletal structures: No destructive osseous lesions are seen. IMPRESSION: 1. CT findings indicative of acute sigmoid diverticulitis with a microperforation as evidenced by small air bubbles within the adjacent mesentery. There is no evidence of drainable abscess. 2. Other findings as described above. ACT 112: Negative or not required by law. Electronically signed by: Nato Dupree M.D. 08/24/2020 3:26 PM Chest X-Ray 08/24/20 14:43 XR chest 1V portable HISTORY: Generalized abdominal pain. COMPARISON: Chest 07/18/2018. FINDINGS: The lungs are clear. Cardiac silhouette is normal in size. No pleural effusions. No pneumothorax. IMPRESSION: No acute process. ACT 112: Negative or not required by law. Electronically signed by: Sher Mendes M.D. 08/24/2020 3:04 PM Hospital Course (1) Acute diverticulitis: Presents with acute sigmoid diverticulitis with microperforation Afebrile with mild leukocytosis and fairly significant abdominal pain which is now resolved Leukocytosis resolved, yrn low fiber diet, afebrile, doing well Last colonoscopy was 2014 and showed 5 sessile polyps in the descending colon, transverse colon and at hepatic flexure that were removed as well as a 3 mm polyp at the hepatic flexure that was sessile. Also found to have multiple small mouth diverticula in the sigmoid and descending colon. Biopsies proved to all be tubular adenomas. There is no evidence of sepsis here and is hemodynamically stable -Received IV Zosyn and plan to switch to p.o. Cipro and Flagyl upon discharge- Cipro renally dosed to be 500 mg once daily to be given after dialysis on dialysis days -dc to home on low fiber diet x 2 weeks, then transition to high fiber diet -needs f/u colonoscopy in 6 weeks-he will f/u in [place] (2) Anemia: Very mild with hemoglobin 10.4, normocytic Likely anemia of chronic kidney disease Continue Nephrocaps -checked B12, folate and both normal receives Venofer at HD and has not needed Epo (3) Arteriosclerotic cardiovascular disease: With history of ANGELITA x2 Continue home aspirin, atorvastatin He is not on beta-blockers due to history of bradycardia No chest pain at this time troponins negative (4) ESRD (end stage renal disease) on dialysis: Tolerated 3 hours of dialysis on the day of admission/08/24 Received HD on 08/26 He still does make some urine Consult nephrology-for HD management (5) Gout: Continue home allopurinol No acute issues (6) Obstructive sleep apnea: Noted Unclear if on CPAP (7) Renal cysts, acquired, bilateral: Follows with urology No acute issues (8) Thrombocytopenia: Platelets low at 70s-90s and 100 on day of discharge This is stable from previous and he has had low platelets for at least the last year Patient was unaware that he had thrombocytopenia and has not had further work-up for this No history of liver disease and liver and spleen appear normal in size on imaging B12 level normal Recommend follow-up with hematology as an outpatient-he is moving to [place] later this month and will f/u there (9) Tremor: Has essential tremor diagnosed by neurology Is not on medication for this (10) Vitamin D deficiency: Not currently on supplementation for this Follow-up with nephrology (11) Hypertension: Blood pressures are acceptable Continue home amlodipine (12) Hyperlipidemia: Continue statin (13) GERD (gastroesophageal reflux disease): No current medications used for this (14) DVT prophylaxis: SCDs Disposition-dc to home today DNR/DNI as discussed with patient with his at the bedside Total Time Total Time Spent Total Time Spent (In Minutes): 35 min Discharge Plan Discharge Items Patient Disposition: Home - Self-Care Reason For Visit: ACUTE DIVERTICULITIS Discharge Diagnosis: Acute diverticulitis with microperforation Condition on Discharge: Good Activity: Resume your previous activity Non-emergency contact: Primary Care Provider Call non-emergency contact if: you have any medication questions, your symptoms worsen, your pain is not controlled, your pain is worsening, your pain is concerning for you, you have a fever and your temperature is above 101 Follow-up/Referrals: Nico Jordan III, MD [Primary Care Provider] - (Please follow-up within 1 to 2 weeks.) Diet: Low Potassium (2gm) and Low Fiber Diet Comment: Low fiber diet x2 weeks, then increase to high-fiber diet Addtl Attending Provider Instructions: You are admitted with acute diverticulitis which is inflammation of an outpouching of the colon called a diverticulum. You did have a very tiny perforation or hole in the bowel that was self-contained. You are doing much better and should continue on oral antibiotics for 7 more days after discharge. If you develop worsening abdominal pain, nausea or vomiting, fevers, or have any other acute concerns, please return to the hospital soon as possible. You also had low platelets on your blood work. Please follow-up with a insole bottom filler after you moved to [place] for further evaluation. Pending Studies at Discharge: No Stand-Alone Forms: [facility] Medications and DC Order Prescriptions: New ciprofloxacin HCl [Cipro] 500 mg tablet 500 mg PO DAILY Qty: 7 RF: 0 metronidazole 500 mg tablet 500 mg PO Q8H 7 Days Qty: 21 RF: 0 Continued atorvastatin 80 mg tablet 80 mg PO HS Qty: 90 RF: 3 furosemide 40 mg tablet 20 mg PO DAILY PRN (Reason: edema) Qty: 30 RF: 11 allopurinol 100 mg tablet 100 mg PO QAM Qty: 90 RF: 3 amlodipine 5 mg tablet 5 mg PO QAM Qty: 90 RF: 3 tadalafil 5 mg tablet 5 mg PO DAILY PRN (Reason: sexual activity) Qty: 20 RF: 2 Renal Caps 1 mg capsule 1 cap PO DAILY Qty: 90 RF: 3 melatonin 10 mg capsule 10 mg PO HS PRN (Reason: Sleep) RF: 0 aspirin 81 mg Tablet,Delayed Release (Dr/Ec) 81 mg PO HS RF: 0 Discharge Orders: Discharge Order (Routine); Ordered 08/27/20 Ordered By: Kerry Cummings Admission Data Admit Date/Time: 08/24/20 18:09 Attending Provider: Kerry Cummings Admit Provider: Kerry Cummings Primary Care Provider: Nico Jordan III Other Providers: Kaleb Kaplan ; Kerry Cummings Coding Level of Care Code D/C DAY MANAGEMENT >30 MINS Diagnoses Acute diverticulitis K57.92 Anemia D64.9 Arteriosclerotic cardiovascular disease I25.10 ESRD (end stage renal disease) on dialysis N18.6; Z99.2 Gout M10.9 Obstructive sleep apnea G47.33 Renal cysts, acquired, bilateral N28.1 Thrombocytopenia D69.6 Tremor R25.1 Vitamin D deficiency E55.9 Hypertension I10 Hypertension type: unspecified Hyperlipidemia E78.5 Hyperlipidemia type: unspecified GERD (gastroesophageal reflux disease) K21.9 DVT prophylaxis Z29.9
== END 2020-08-27 13:40 | disposition home or self-care (01) | DRG 391 ==
LOC: ED 13:38 → 3E 18:09